=== PATIENT | male | born 1960 | race Caucasian/White ===

== ENCOUNTER 2023-05-12 08:13 | Emergency (ER) | payer OTHER, SELFPAY ==
[2023-05-12] VITALS (7 sets, daily range): BP systolic 99–150; BP diastolic 55–105; BMI 37.6
[2023-05-12 08:58] LABS: COVID-19 Antigen Negative (Negative)
[2023-05-12 10:23] LABS: % Basophils 0.6 % (0-2); % Eosinophils 1.2 % (0-6); % Immature Granulocytes 0.6 % (0-0.5); % Lymphocytes 14.4 % (20.5-51.1); % Monocytes 8.7 % (1.7-9.3); % Neutrophils 74.5 % (42.2-75.2); Absolute Basophils 0.1 10^3/uL (0-0.2); Absolute Eosinophils 0.2 10^3/uL (0-0.7); Absolute Immature Granulocytes 0.1 10^3/uL (0-0.05); Absolute Monocytes 1.2 10^3/uL (0.1-0.6); Absolute Neutrophils 10.2 10^3/uL (1.4-6.5); Hematocrit 42.9 % (39.0-52.0); Hemoglobin 14.6 g/dL (13.0-18.0); Mean Corpuscular Hgb 28.5 pg (27.0-31.0); Mean Corpuscular Volume 83.6 fL (80.0-94.0); Mean Platelet Volume 9.5 fL (7.4-10.4); Nucleated Red Blood Cells % 0 % (-); Platelet Count 185 10^3/uL (130-400); Red Blood Cell Count 5.13 10^6/uL (4.70-6.10); White Blood Cell Count 13.7 10^3/uL (4.8-10.8)
[2023-05-12] MEDS: DUONEB 3 ML INH ×2 (10:24→11:08)
[2023-05-12 10:45] LABS: NT-proBNP 842 pg/ml
[2023-05-12 11:01] LABS: Blood Urea Nitrogen 21 mg/dl (9-20); Calcium 8.6 mg/dl (8.4-10.2); Carbon Dioxide 27 mmol/L (22-30); Chloride 104 mmol/L (98-107); Estimated Creatinine Clearance > 125 ml/min; Glucose 102 mg/dl (70-99); Sodium 138 mmol/L (135-145); eGFR > 60.00
[2023-05-12] MEDS: DECADRON 10 MG IV (11:08)
--- NOTE | 2023-05-12 13:59 | ED.GENMED ---
History of Present Illness
General
Chief Complaint: Cold/Flu/URI Symptoms
Source: patient
Exam Limitations: none
Time Seen by Provider: 05/12/23 08:15
Travel History
Have you had any contact with someone who has COVID-19?: No
Do you have any symptoms of coronavirus? Fever > 100 degrees, chills, cough, shortness of breath, sore throat, loss of taste or smell, muscle aches, or headache?: Yes
Symptoms:: cough
History of Present Illness
History of Present Illness:
This is a 63yo male who presents with cough, sore throat, and sob. Patient has history of stroke. He admits that his caregivers child was recently sick. The patient admits that he has had no noted fevers. He feels a little better on my
evaluation. No abdominal pain. No chest pain
Past History
Past History
ED Past Medical History: CAD, CVA (right parietal occipital and 2016), GERD, HTN, Hypercholesterolemia, [place] and Other (ITP w/ Thrombus)
ED Past Surgical History: Cardiac (CABG, Stents) and Other (Hernia)
Social History
Tobacco: Non-smoker
Alcohol: None
Personal:
Living: with family
Employment: Not employed
Family History
Family History: Early CAD
Phy Exam
Physical Exam
Physical Exam:
CONSTITUTIONAL Patient alert and oriented to person, place and time. Well-appearing. Vital signs reviewed.
HEAD atraumatic, normocephalic.
EYES eyelids normal to inspection, Extraocular muscles intact, Conjunctiva normal, Sclera normal.
NECK normal range of motion, Trachea midline, no jugular venous distention.
RESPIRATORY CHEST No respiratory distress noted, Chest expansion equal, wheezing noted bilaterally.
CARDIOVASCULAR regular rate and rhythm, Heart sounds normal.
BACK normal inspection, no obvious deformities
UPPER EXTREMITY range of motion normal, Motor strength normal, no cyanosis, no edema.
LOWER EXTREMITY range of motion normal, Motor strength normal, no cyanosis, no edema.
NEURO Speech normal, left upper and lower extremity weakness noted from previous stroke
SKIN skin warm, dry, and normal in color.
PSYCHIATRIC patient oriented to person place and time, Normal affect.
Course
Orders/Labs/Results
Orders:
Orders
05/12/23 08:36
COVID-19 Antigen Urgent
Source: Nasal Swab
Influenza A+B Rapid Molecular Stat
BINTA Source: Nasal Swab
Specimen Description:
05/12/23 08:56
Electrocardiogram (*1) Stat
Reason for Study: Other
Other Reason for Exam: chest pain
Cardiac Monitoring- Treatment ONCE
EKG- Treatment ONCE
05/12/23 08:57
CR Chest - 2 Views Urgent
Comment:
Reason For Exam: SOB
05/12/23 09:51
Ipratropium/Albuterol Sulfate [Duoneb] 3 ml INH R NOW STA
05/12/23 10:17
Basic Metabolic Panel Urgent
05/12/23 10:18
Complete Blood Count/With Diff Urgent
NT-proBNP Urgent
05/12/23 10:57
Dexamethasone Sod Phosphate [Decadron] 10 mg IV NOW STA
Ipratropium/Albuterol Sulfate [Duoneb] 3 ml INH R NOW STA
Abnormal Lab Results
05/12/23 05/12/23
10:17 10:18
WBC 13.7 H 10^3/uL
(4.8-10.8)
Abs Immat Gran (auto) 0.1 H 10^3/uL
(0-0.05)
Absolute Neuts (auto) 10.2 H 10^3/uL
(1.4-6.5)
Absolute Monos (auto) 1.2 H 10^3/uL
(0.1-0.6)
Immature Gran % 0.6 H %
(0-0.5)
Lymphocytes % 14.4 L %
(20.5-51.1)
BUN 21 H mg/dl
(9-20)
Glucose 102 H mg/dl
(70-99)
05/12/23 10:18
05/12/23 10:17
Vital Signs
Initial and Last Documented VS:
Initial Vital Signs
Temp Pulse Resp BP Pulse Ox
99.2 F 81 22 150/105 93
05/12/23 08:22 05/12/23 08:22 05/12/23 08:22 05/12/23 08:22 05/12/23 08:22
Last Documented Vital Signs
Temp Pulse Resp BP Pulse Ox
99.2 F 80 22 99/58 90
05/12/23 08:22 05/12/23 13:30 05/12/23 13:30 05/12/23 13:00 05/12/23 13:30
MDM/Problems Addressed
MDM/Problems Addressed:
Reactive airway disease, bronchitis
*Radiology
Radiology exam reviewed: all reviewed NAD by ED Provider
*Pulse Oximetry
Patient hypoxic: no
*EKG
Interpreted by ED Provider?: Yes
Interpretation: abnormal
Rate: normal
Rhythm: sinus and PVC's
Ischemia: non-specific ST changes
*Critical Care Note
Total Time (30-74mins, 75-104mins- exclusive of procedures): Not Applicable
Data Reviewed
Source: patient
Further Testing Considered But Not Given:
Considered admission but patient has remained stable with pulse ox 96%. Feels much improved. Lungs on reassessment are much more clear. Will discharge with albuterol with nebulizer as well as steroids. Also, given his medical history, cover with
antibiotic
ED Attending Note
-
Portions of this chart may have been created with voice recognition software.� Occasional wrong word or��sound alike� substitutions may have occurred due to the inherent limitations of voice recognition software.
Discharge Plan
Departure
Patient Disposition: Home (Routine Discharge)
Date of Disposition: 05/12/23
Time of Disposition: 14:03
Patient with high blood pressure during this ER visit?: No
Discharge Problem:
RAD (reactive airway disease), Acute upper respiratory infection
Instructions: Acute Bronchitis, Adult (DC)
Prescriptions:
New
albuterol sulfate 2.5 mg /3 mL (0.083 %) solution for nebulization
2.5 mg inhalation Q4H PRN (Reason: shortness of breath or wheezing) Qty: 180 0RF
prednisone 10 mg Tablet
See Rx Instructions .ROUTE .COMPLEX Qty: 30 0RF
Rx Instructions:
Take By Mouth:
40 mg daily x3 days, 30 mg daily x3 days,
20 mg daily x3 days, 10 mg daily x3 days.
amoxicillin-pot clavulanate 875-125 mg tablet
1 tab PO BID Qty: 14 0RF
No Action
eltrombopag olamine [Promacta] 50 MG tablet
50 mg PO DAILY
pantoprazole 40 MG tablet,delayed release (DR/EC)
40 mg PO Q12
ropinirole 1 MG tablet
0.5 mg PO HS
trazodone 50 MG tablet
75 mg PO HS
levetiracetam 500 MG tablet
500 mg PO BID
baclofen 10 MG tablet
10 mg PO TID
fluoxetine 20 MG capsule
40 mg PO DAILY
risperidone 1 MG tablet
0.5 mg PO BID
lisinopril 2.5 MG tablet
2.5 mg PO DAILY
acetaminophen 325 MG tablet
650 mg PO Q4HPRN PRN (Reason: mild pain)
atorvastatin 80 MG tablet
80 mg PO DAILY
apixaban [Eliquis] 5 MG tablet
5 mg PO BID Qty: 0 0RF
Referrals:
Marcello Shrestha MD [Family Provider] -
Activity Restrictions/Additional Instructions:
Please see your doctor in the next 3 days for follow-up and reevaluation. Please use albuterol every 4-6 hours as needed for cough, wheezing. Return immediately for difficulty breathing, coughing up blood, worsening symptoms, fevers or any other
concerns.
Interventions
Interventions:
*Risk Screen - Suicide Last Done: 05/12/23 09:01
*General Assessment Last Done: 05/12/23 08:22
*Neglect/Abuse Screening Last Done: 05/12/23 08:22
*ED COVID-19 Vaccine History Last Done: 05/12/23 08:22
ED- Pulmonary Assessment Last Done: 05/12/23 10:26
== END 2023-05-12 15:30 | disposition home or self-care (01) ==
LOC: EMR 08:13
PROVIDERS: EMERGENCY PHYSICIAN Emergency Medicine; FAMILY PHYSICIAN Family Medicine
DX: J06.9 Acute upper respiratory infection, unspecified (principal); J45.909 Unspecified asthma, uncomplicated; Z11.52 Encounter for screening for COVID-19
CPT/HCPCS: 99285; 96374; 94640; 71046; 80048; 83880; 85025; 87502; 87811; 93005

== ENCOUNTER 2023-06-17 15:24 | Outpatient (RCR) | payer OTHER, SELFPAY | END 2023-06-17 23:59 | disposition home or self-care (01) | LOC: ROT 15:24 | PROVIDERS: ATTENDING PHYSICIAN Psychiatry & Neurology Neurology; FAMILY PHYSICIAN Family Medicine | DX: I63.311 Cerebral infarction due to thrombosis of right middle cerebral artery (principal); Z73.6 Limitation of activities due to disability | CPT/HCPCS: 97167; 97535 ==

== ENCOUNTER 2024-02-07 11:50 | Emergency (ER) | payer OTHER, SELFPAY ==
[2024-02-07 11:53] VITALS: BP 119/80
--- NOTE | 2024-02-07 12:12 | ED.GENMED ---
History of Present Illness
General
Chief Complaint: Back Pain
Source: patient
Exam Limitations: none
Time Seen by Provider: 02/07/24 12:10
Nursing documentation reviewed up to this point in time: agreed with
History of Present Illness
History of Present Illness:
63-year-old male with history of CVA w left hemiparesis, vertigo, HTN, HLD, DC, GERD, thrombocytopenia, ITP with splenic blood clot 2016, anxiety/depression, CABG x 2 presents 6 days after a fall for persistent pain across lower back and left hip.
He went down his outside steps backwards as usual, at the bottom of steps, caregiver wasn't holding him 'properly' and he fell on the asphalt onto his left side. He was helped up and has been able to ambulate as usual with his cane. He proceeded to
his meeting. He has been getting more sore across lower back and left hip areas since the fall.
Caregiver with him and pt admit his ability to ambulate steadily has been declining, his last P/T was over a year ago and he can not afford it. They are applying for Medicaid and hope to restart the P/T
Past History
Past History
ED Past Medical History: CAD, CVA (right parietal occipital and 2016), GERD, HTN, Hypercholesterolemia, [place] and Other (ITP w/ Thrombus)
ED Past Surgical History: Cardiac (CABG, Stents) and Other (Hernia)
Social History
Tobacco: Non-smoker
Alcohol: None
Personal:
Living: with family
Employment: Not employed
Family History
Family History: Early CAD
Review of Systems
Review of Systems
Allergies reviewed?: Yes
All Other Systems: ROS reviewed and negative except as documented in HPI and ROS
Constitutional: Denies fever or fatigue
Respiratory: Denies trouble breathing
Cardiac: Denies chest pain or syncope
ABD/GI: Denies abdominal pain, nausea, vomiting, diarrhea or anorexia
: Denies dysuria, frequency, difficulty voiding or urgency
Musculoskeletal: Reports back pain and other (pain left hip and lower back. ); Denies edema or neck pain
Skin: Reports no symptoms
Neurological: Reports other (L hemiplegia unchanged); Denies dizzy
Phy Exam
Physical Exam
Physical Exam:
GENERAL: No acute distress. A&Ox3.
CONSTITUTIONAL: Afebrile.
EYES: PERRL, conjunctivae normal
Neck: Supple
ENMT: moist mucus membranes, Pharynx nl
RESPIRATORY: Regular respirations, nonlabored, lungs clear.
CARDIOVASCULAR: Regular rate and rhythm, no murmurs, no rubs.
GI: Soft, nontender, normal BS
MUSCULOSKELETAL: Tender left para lumbar area, left lateral hip. Moves with ease. Well perfused.
SKIN: Warm, dry, pink
PSYCH: Normal mood and affect. Well kept, interactive and appropriate
NEUROLOGIC: Awake, alert and oriented. Left hemiplegia.
Course
Orders/Labs/Results
Orders:
Orders
02/07/24 12:27
Lumbar Spine, 2 or 3 View [CR Lumbar Spine 2 Or 3 Views] Urgent
Comment:
Reason For Exam: pain after fall
02/07/24 12:28
Hip, Left 2-3 Views [CR Hip - LT w/wo Pel 2-3 Vw*] Urgent
Comment:
Reason For Exam: pain after fall
Include a pelvis x-ray?: No
Vital Signs
Initial and Last Documented VS:
Initial Vital Signs
Temp Pulse Resp Pulse Ox
97.6 F 70 18 94
02/07/24 11:51 02/07/24 11:51 02/07/24 11:51 02/07/24 11:51
Last Documented Vital Signs
Temp Pulse Resp BP Pulse Ox
97.6 F 64 16 119/80 94
02/07/24 11:51 02/07/24 13:59 02/07/24 13:59 02/07/24 11:53 02/07/24 13:59
MDM/Problems Addressed
MDM/Problems Addressed:
63-year-old male with history of CVA w left hemiparesis, vertigo, HTN, HLD, DC, GERD, thrombocytopenia, ITP with splenic blood clot 2016, anxiety/depression, CABG x 2 presents 6 days after a fall for persistent pain across lower back and left hip.
He went down his outside steps backwards as usual, at the bottom of steps, caregiver wasn't holding him 'properly' and he fell on the asphalt onto his left side. He was helped up and has been able to ambulate as usual with his cane. He proceeded to
his meeting. He has been getting more sore across lower back and left hip areas since the fall.
Caregiver with him and pt admit his ability to ambulate steadily has been declining, his last P/T was over a year ago and he can not afford it. They are applying for Medicaid and hope to restart the P/T
LS spine and L hip xrays both show DJD, nothing acute.
Pt reassured.
DC'd via wheelchair to care of caregiver
*Critical Care Note
Total Time (30-74mins, 75-104mins- exclusive of procedures): Not Applicable
ED Attending Note
-
Portions of this chart may have been created with voice recognition software.� Occasional wrong word or��sound alike� substitutions may have occurred due to the inherent limitations of voice recognition software.
Discharge Plan
Departure
Patient Disposition: Home (Routine Discharge)
Date of Disposition: 02/07/24
Time of Disposition: 13:43
Patient with high blood pressure during this ER visit?: No
Condition: Fair
Discharge Problem:
Fall from slip, trip, or stumble, Low back strain, Contusion of left hip
Instructions: Low Back Pain (DC), Contusion
Prescriptions:
No Action
eltrombopag olamine [Promacta] 50 MG tablet
50 mg PO DAILY
pantoprazole 40 MG tablet,delayed release (DR/EC)
40 mg PO Q12
ropinirole 1 MG tablet
0.5 mg PO HS
trazodone 50 MG tablet
75 mg PO HS
levetiracetam 500 MG tablet
500 mg PO BID
baclofen 10 MG tablet
10 mg PO TID
fluoxetine 20 MG capsule
40 mg PO DAILY
risperidone 1 MG tablet
0.5 mg PO BID
lisinopril 2.5 MG tablet
2.5 mg PO DAILY
acetaminophen 325 MG tablet
650 mg PO Q4HPRN PRN (Reason: mild pain)
albuterol sulfate 2.5 mg /3 mL (0.083 %) solution for nebulization
2.5 mg inhalation Q4H PRN (Reason: shortness of breath or wheezing) Qty: 180 0RF
prednisone 10 mg Tablet
See Rx Instructions .ROUTE .COMPLEX Qty: 30 0RF
Rx Instructions:
Take By Mouth:
40 mg daily x3 days, 30 mg daily x3 days,
20 mg daily x3 days, 10 mg daily x3 days.
amoxicillin-pot clavulanate 875-125 mg tablet
1 tab PO BID Qty: 14 0RF
atorvastatin 80 MG tablet
80 mg PO DAILY
apixaban [Eliquis] 5 MG tablet
5 mg PO BID Qty: 0 0RF
Referrals:
Lorraine Flowers, DO [Family Provider] - As needed
Activity Restrictions/Additional Instructions:
As we discussed your lower back and left hip xrays show nothing broken.
You do have arthritis in these areas so injury/fall can aggravate it and cause your pain.
You may use Ibuprofen 600 mg twice a day for the next week as needed, as your platelet counts are normal.
Do not use the Ibuprofen for more than one week.
Interventions
Interventions:
*Risk Screen - Suicide Last Done: 02/07/24 11:53
*Neglect/Abuse Screening Last Done: 02/07/24 11:53
ED- Fall Risk Assessment Last Done: 02/07/24 13:06
*ED COVID-19 Vaccine History Last Done: 02/07/24 12:30
*Nursing Disposition Last Done: 02/07/24 13:59
ED-Musculoskeletal Assessment Last Done: 02/07/24 12:15
Discharge Date and Time
Discharge Date/Time: 02/07/24 14:02
Print Language: NEPALI
== END 2024-02-07 14:02 | disposition home or self-care (01) ==
LOC: EMR 11:50
PROVIDERS: EMERGENCY PHYSICIAN Student in an Organized Health Care Education/Training Program; FAMILY PHYSICIAN Family Medicine
DX: S39.012A Strain of muscle, fascia and tendon of lower back, initial encounter (principal); S70.02XA Contusion of left hip, initial encounter; W01.0XXA Fall on same level from slipping, tripping and stumbling without subsequent striking against object, initial encounter; I10 Essential (primary) hypertension; E78.00 Pure hypercholesterolemia, unspecified; I25.10 Atherosclerotic heart disease of native coronary artery without angina pectoris; I25.2 Old myocardial infarction; I69.354 Hemiplegia and hemiparesis following cerebral infarction affecting left non-dominant side; K21.9 Gastro-esophageal reflux disease without esophagitis; Z95.1 Presence of aortocoronary bypass graft; Z95.5 Presence of coronary angioplasty implant and graft
CPT/HCPCS: 99284; 72100; 73502

== ENCOUNTER 2024-04-02 09:38 | Inpatient (IN) | payer OTHER, SELFPAY ==
[2024-03-30 13:13] VITALS: BP 140/102
--- NOTE | 2024-03-30 15:20 | ED.GENMED ---
History of Present Illness
General
Chief Complaint: Back Pain
Time Seen by Provider: 03/30/24 15:04
History of Present Illness
History of Present Illness:
64-year-old male with history of prior stroke with left-sided hemiparesis and ITP presents to the emergency department for evaluation of nontraumatic right-sided low back pain for the past several days. He typically uses a cane for ambulation, over
the past 24 hours has been unable to walk secondary to pain. Has been taking Tylenol without significant improvement. On Eliquis thus cannot take NSAIDs. Denies any lower urinary tract voiding symptoms, hematuria, or colicky pain.
Past History
Past History
ED Past Medical History: CAD, CVA (right parietal occipital and 2016), GERD, HTN, Hypercholesterolemia, [place] and Other (ITP w/ Thrombus)
ED Past Surgical History: Cardiac (CABG, Stents) and Other (Hernia)
Social History
Tobacco: Non-smoker
Alcohol: None
Personal:
Living: with family
Employment: Not employed
Family History
Family History: Early CAD
Review of Systems
Review of Systems
Allergies reviewed?: Yes
All Other Systems: ROS reviewed and negative except as documented in HPI and ROS
Phy Exam
Physical Exam
Physical Exam:
GEN: Well appearing, NAD, WDWN
HEENT: Oral mucosa moist, no scleral icterus
Cardiac: Regular rate
Lung: No respiratory distress, no tachypnea
MSK: No gross deformity or injuries. No obvious lumbar spine deformities. No midline lumbar spine tenderness. L-spine range of motion limited secondary to pain.
Skin: Good color, no pallor or jaundice, no rashes
Neuro: AO x3. Left-sided hemiparesis baseline, right lower extremity strength is 5 out of 5 in all garduno with 2+ patellar reflex
Psych: Calm, cooperative
Course
Orders/Labs/Results
Orders:
Orders
03/30/24 Dinner
Regular
At Your Request: Non-Participating
03/30/24 15:20
HYDROmorphone [Dilaudid] 0.5 mg IV NOW STA
CR Lumbar Spine Comp Min 4 Vw* Urgent
Comment:
Reason For Exam: Low back pain
03/30/24 15:32
Pt Eval And Treat Urgent
Treatment: R low back pain, hx of L hemiparesis
Activity Level: As Tolerated
03/30/24 16:12
Complete Blood Count/No Diff Urgent
Comprehensive Metabolic Panel Urgent
03/30/24 16:16
UA Reflex to Culture [Urinalysis Reflex To Culture] Urgent
Date Specimen was Collected: 03/30/24
Time Specimen was Collected: 16:12
03/30/24 17:14
Dexamethasone Sod Phosphate [Decadron] 10 mg IV NOW STA
HYDROmorphone [Dilaudid] 0.5 mg IV NOW STA
03/30/24 17:34
Admit/Transfer Patient As Directed
Co-Sign Provider:
Level of Care: Observation services
Assign to:: Medical/Surgical
Physician / Group: julee
Diagnosis: back pain
Code Status As Directed
Resuscitation Status: Do not resuscitate
Reached after discussion with pt or family/Healthcare POA: Yes
DNR Bracelet Application ONCE
PRN Pain Medication Management As Directed
May give lesser potent ordered pain med per pt: Yes
preference::
Protocol:: Medication orders for pain may be administered in a
manner that supports deferring to patient preference
when the pt is:
- Requesting an ordered lesser potent pain medication.
Least to most potent pain medications are defined
as: acetaminophen < NSAID < tramadol < opioids
(morphine, oxycodone, hydromorphone).
- Requesting a lesser dose of the same medication IF
ORDERED.
- Requesting a less intrusive route of administration
if both routes are prescribed by the provider (PO <
IV).
03/30/24 17:47
Acetaminophen [Tylenol] 650 mg PO Q4HPRN PRN
HYDROmorphone [Dilaudid] 0.5 mg IV Q4HPRN PRN
03/30/24 17:47
VTE Contraindication Routine
VTE Mechanical Device Contraindication: Medical Contraindication
Pharmocologic Contraindication: Medical Contraindication
Activity As Directed
Activity Level: As Tolerated
Vital Signs As Directed
Frequency: Per unit guidelines
Ot Eval And Treat Routine
03/31/24 06:00
Complete Blood Count/With Diff IN AM
Comprehensive Metabolic Panel IN AM
03/31/24 08:00
Lidocaine [Lidocaine 4% Patch] 1 patch TOPICAL DAILY
Apply Lidocaine patch(s) to:: right lower back
Abnormal Lab Results
03/30/24 03/30/24
16:12 16:16
MCHC 32.9 L g/dL
(33.0-37.0)
RDW 14.6 H %
(11.5-14.5)
Carbon Dioxide 31 H mmol/L
(22-30)
BUN 21 H mg/dl
(9-20)
Urine Ketones 1+ A
(Negative)
Urine Urobilinogen 4+ A
(Neg - 1+)
03/30/24 16:12
03/30/24 16:12
Vital Signs
Initial and Last Documented VS:
Initial Vital Signs
Temp Pulse Resp BP Pulse Ox
98.1 F 57 18 140/102 92
03/30/24 13:13 03/30/24 13:13 03/30/24 13:13 03/30/24 13:13 03/30/24 13:13
Last Documented Vital Signs
Temp Pulse Resp BP Pulse Ox
97.3 F 60 16 128/74 95
03/30/24 23:00 03/30/24 23:00 03/30/24 23:00 03/30/24 23:00 03/30/24 23:00
MDM/Problems Addressed
MDM/Problems Addressed:
Patient's severe pain is quite limiting to his functional status which is already impaired due to prior stroke. He is not suitable for discharge to home at this time. Seen by physical therapy and inpatient rehab was recommended. Will admit to the
hospitalist service for further management
*Critical Care Note
Total Time (30-74mins, 75-104mins- exclusive of procedures): Not Applicable
ED Attending Note
-
Portions of this chart may have been created with voice recognition software.� Occasional wrong word or��sound alike� substitutions may have occurred due to the inherent limitations of voice recognition software.
Discharge Plan
Departure
Patient Disposition: Admit
Date of Disposition: 03/30/24
Time of Disposition: 17:14
Admit to: Med/Surg
Presentation/result/management discussed w/ accepting MD/DO: Hospitalist
Discharge Problem:
Intractable low back pain
Interventions
Interventions:
*Risk Screen - Suicide Last Done: 03/30/24 13:13
*General Assessment Last Done: 03/30/24 13:13
*Neglect/Abuse Screening Last Done: 03/30/24 13:13
*ED COVID-19 Vaccine History Last Done: 03/30/24 18:10
[2024-03-30] MEDS: DILAUDID 0.5 MG IV ×3 (16:04→23:47)
[2024-03-30 16:26] LABS: Urine Albumin Trace (Neg - Trace); Urine Bilirubin Negative (Negative); Urine Character Clear (Clear); Urine Color Yellow; Urine Glucose Negative (Negative); Urine Ketone 1+ (Negative); Urine Leukocyte Negative (Negative); Urine Nitrite Negative (Negative); Urine Occult Blood Negative (Negative); Urine Urobilinogen 4+ (Neg - 1+)
[2024-03-30 16:27] LABS: Hematocrit 43.4 % (39.0-52.0); Hemoglobin 14.3 g/dL (13.0-18.0); Mean Corp Hgb Conc. 32.9 g/dL (33.0-37.0); Mean Corpuscular Hgb 29.3 pg (27.0-31.0); Mean Corpuscular Volume 88.9 fL (80.0-94.0); Mean Platelet Volume 9.7 fL (7.4-10.4); Platelet Count 193 10^3/uL (130-400); Red Blood Cell Count 4.88 10^6/uL (4.70-6.10); Red Cell Dist. Width 14.6 % (11.5-14.5); White Blood Cell Count 9.7 10^3/uL (4.8-10.8)
[2024-03-30 17:17] LABS: ALT (SGPT) 27 U/L (0-50); AST (SGOT) 35 U/L (17-59); Albumin 3.6 g/dl (3.5-5.0); Alkaline Phosphatase 62 U/L (38-126); Blood Urea Nitrogen 21 mg/dl (9-20); Calcium 9.1 mg/dl (8.4-10.2); Carbon Dioxide 31 mmol/L (22-30); Chloride 102 mmol/L (98-107); Glucose 94 mg/dl (70-99); Potassium 4.1 mmol/L (3.5-5.1); Sodium 139 mmol/L (135-145); Total Bilirubin 0.6 mg/dl (0.2-1.3); Total Protein 6.3 g/dl (6.3-8.2); eGFR > 60.00
[2024-03-30] MEDS: DECADRON 10 MG IV (17:27)
--- NOTE | 2024-03-30 17:37 | HPS.HSE ---
Family Physician
-
Family Physician: Alan Reynoso
Chief Complaint
-
back pain
History of Present Illness
64-year-old male past medical history of prior CVA with left-sided hemiparesis, ITP, CAD status post CABG, atrial tachycardia, HFpEF, hypertension, GERD, hypercholesteremia, presenting with right-sided lower back pain for the past several weeks. He
has chronic lower back pain but he states that he fell a few weeks ago and since then he has been having severe pain. Pain is located in the right lower back and does not radiate to the butt or lower extremity. Sometimes the pain goes across his
back. The pain is only severe when he tries to ambulate. When he is lying down there is minimal pain.
He typically uses a cane for ambulation but over the past day he has been unable to walk secondary to pain. He has been taking Tylenol and ibuprofen without improvement. He denies any difficulty voiding urine. Denies any numbness or tingling.
Denies any fevers or weight loss.
He does not smoke or drink alcohol.
Medical History
Past Medical History
Past Medical History: Reports Other (prior CVA with left-sided hemiparesis, ITP, CAD status post CABG, atrial tachycardia, HFpEF, hypertension, GERD, hypercholesteremia)
Past Surgical History: Reports None
Social History
Tobacco: Non-smoker
Alcohol: None
Drug: None
Family History
Family History: Not pertinent
Allergies / Home Medications
Allergies reflects when Allergies were last updated in Help/Systems.
Home Medications with original date entered in Help/Systems
Allergy/Medication List:
Allergies
Allergy/AdvReac Type Severity Reaction Status Date / Time
No Known Allergies Allergy Verified 03/30/24 13:13
Home Medications
eltrombopag olamine 50 mg tablet (Promacta) 50 mg PO DAILY 06/01/14
pantoprazole 40 mg tablet,delayed release 40 mg PO Q12 06/17/15
atorvastatin 80 mg tablet 80 mg PO DAILY 09/07/15
apixaban 5 mg tablet (Eliquis) 5 mg PO BID ##0 09/26/15
acetaminophen 325 mg tablet 650 mg PO Q4HPRN PRN mild pain 07/28/18
baclofen 10 mg tablet 10 mg PO TID 07/28/18
fluoxetine 20 mg capsule 40 mg PO DAILY 07/28/18
levetiracetam 500 mg tablet 500 mg PO BID 07/28/18
lisinopril 2.5 mg tablet 2.5 mg PO DAILY 07/28/18
risperidone 1 mg tablet 0.5 mg PO BID 07/28/18
ropinirole 1 mg tablet 0.5 mg PO HS 07/28/18
trazodone 50 mg tablet 75 mg PO HS 07/28/18
albuterol sulfate 2.5 mg/3 mL (0.083 %) solution for nebulization 2.5 mg (3 mL) inhalation Q4H PRN shortness of breath or wheezing #180 mL 05/12/23
amoxicillin 875 mg-potassium clavulanate 125 mg tablet 1 tab PO BID #14 tabs 05/12/23
prednisone 10 mg tablet See Rx Instructions .Route .COMPLEX #30 tabs 05/12/23
Review of Systems
-
History Source: Patient
A 12 point ROS was completed and negative except as noted: Yes
Physical Exam
Vital Signs
Vital Signs
Temp Pulse Resp BP Pulse Ox
98.1 F 57 18 140/102 92
03/30/24 13:13 03/30/24 13:13 03/30/24 13:13 03/30/24 13:13 03/30/24 13:13
Physical Exam
General: Well Developed, Well Nourished and No Apparent Distress
HEENT: NormoCephalic, Moist mucous membranes and Atraumatic
Respiratory: Clear
Cardiac: S1/S2 and Regular Rhythm; No Murmur or Rub
GI: Soft, Non Tender, Non Distended and Normal Bowel Sounds; No Organomegaly
Rectal: Deferred by Provider
Musculoskeletal: No Clubbing, No Cyanosis, No Edema and Other (right paraspinal tenderness )
Skin: No Rash
Neuro: Nonfocal/grossly intact
Laboratory Results
-
03/30/24 16:12
03/30/24 16:12
Laboratory Results
Total Bilirubin 0.6 mg/dl (0.2-1.3) 03/30/24 16:12
AST 35 U/L (17-59) 03/30/24 16:12
ALT 27 U/L (0-50) 03/30/24 16:12
Alkaline Phosphatase 62 U/L (38-126) 03/30/24 16:12
Data Reviewed
-
Lab Data: Labs Reviewed by me
Old Records: Reviewed
Impression/Plan
-
IMPRESSION:
PLAN:
# Acute on chronic lower back pain after recent fall
-Minimal pain when lying down flat without movement, some tenderness in the right lower paraspinal area
-Strength is good, and no indications for MRI at this time
-Lumbar x-ray pending to rule out compression fracture
-Dexamethasone given in ER
-Lidocaine patch, Tylenol, Dilaudid, baclofen
-PT/OT
History of prior CVA with left-sided hemiparesis
ITP/thrombophilia
-Continue Promacta
-Continue Eliquis
CAD status post CABG
-Continue statin
PAD
Ischemic cardiomyopathy
Essential hypertension
-Continue lisinopril
GERD
-Continue Protonix
Hypercholesterolemia
-Continue statin
Restless leg syndrome
-Continue ropinirole
Anxiety/depression
-Continue Risperdal, fluoxetine, trazodone
DNR/DNI
DVT prophylaxis�Eliquis
Regular diet
[2024-03-30 18:11] VITALS: BP 93/60
[2024-03-30 21:09] VITALS: BP 127/75; BMI 34.8
--- NOTE | 2024-03-30 22:56 | PTCARENOTE ---
pt admitted to rm 317-1 and was pulled over from stretcher to bed. Pt aaox3, VSS, and states that pain level is a 0/10. Pt c/o difficulty urinating while in ED, no c/o of burning or pain. Bladder scanned for 70mls, urinal given to pt. Pt oriented to
room, call villa within reach, and plan of care ongoing.
[2024-03-30 23:00] VITALS: BP 128/74
[2024-03-31] MEDS: DESYREL 150 MG PO ×2 (00:16→21:04)
[2024-03-31] MEDS: DEPAKOTE (12 HR RELEASE) 500 MG PO ×3 (00:16→21:05)
[2024-03-31] MEDS: PROTONIX 40 MG PO ×3 (00:16→21:04)
[2024-03-31] MEDS: LIPITOR 80 MG PO ×2 (00:16→08:37)
[2024-03-31] MEDS: PRADAXA 150 MG PO ×3 (00:16→21:04)
[2024-03-31] MEDS: LIORESAL 20 MG PO (00:17)
[2024-03-31] MEDS: TYLENOL 650 MG PO (02:35)
[2024-03-31] MEDS: DILAUDID 0.5 MG IV (06:08)
[2024-03-31 07:16] LABS: % Basophils 0.1 % (0-2); % Immature Granulocytes 0.8 % (0-0.5); % Monocytes 2.4 % (1.7-9.3); % Neutrophils 75.7 % (42.2-75.2); Absolute Immature Granulocytes 0.1 10^3/uL (0-0.05); Absolute Lymphocytes 1.9 10^3/uL (1.2-3.4); Absolute Monocytes 0.2 10^3/uL (0.1-0.6); Absolute Neutrophils 6.9 10^3/uL (1.4-6.5); Hematocrit 42.8 % (39.0-52.0); Hemoglobin 14.4 g/dL (13.0-18.0); Mean Corp Hgb Conc. 33.6 g/dL (33.0-37.0); Mean Corpuscular Hgb 29.2 pg (27.0-31.0); Mean Corpuscular Volume 86.8 fL (80.0-94.0); Mean Platelet Volume 9.7 fL (7.4-10.4); Nucleated Red Blood Cells % 0 % (-); Platelet Count 206 10^3/uL (130-400); Red Blood Cell Count 4.93 10^6/uL (4.70-6.10); Red Cell Dist. Width 14.5 % (11.5-14.5); White Blood Cell Count 9.1 10^3/uL (4.8-10.8)
[2024-03-31 07:28] LABS: C-Reactive Protein < 5.00 mg/L (0.0-10.00)
[2024-03-31 07:30] VITALS: BP 118/62
[2024-03-31 07:45] LABS: ALT (SGPT) 27 U/L (0-50); AST (SGOT) 32 U/L (17-59); Albumin 3.7 g/dl (3.5-5.0); Alkaline Phosphatase 57 U/L (38-126); Blood Urea Nitrogen 26 mg/dl (9-20); Calcium 9.1 mg/dl (8.4-10.2); Carbon Dioxide 29 mmol/L (22-30); Chloride 102 mmol/L (98-107); Estimated Creatinine Clearance 97 ml/min; Glucose 138 mg/dl (70-99); Potassium 4.9 mmol/L (3.5-5.1); Sodium 139 mmol/L (135-145); Total Bilirubin 0.8 mg/dl (0.2-1.3); Total Protein 6.4 g/dl (6.3-8.2); eGFR > 60.00
[2024-03-31] MEDS: PROZAC 40 MG PO (08:36)
[2024-03-31] MEDS: TYLENOL 1000 MG PO ×3 (08:37→21:04)
[2024-03-31] MEDS: LIORESAL 10 MG PO ×3 (08:37→21:05)
[2024-03-31] MEDS: IMDUR (EXTENDED RELEASE) 60 MG PO (08:37)
[2024-03-31] MEDS: LIDOCAINE 4% PATCH 1 PATCH TOPICAL (08:38)
--- NOTE | 2024-03-31 09:37 | W.PN.HOSP.TC ---
Today's Communication/Plan
-
Lumbar MRI
c/w pain control
PT/OT, likely need SNF
Assessment / Plan
Assessment / Plan
Physical Exam
General: Well Developed, Well Nourished and No Apparent Distress
HEENT: NormoCephalic, Moist mucous membranes and Atraumatic
Respiratory: Clear
Cardiac: S1/S2 and Regular Rhythm; No Murmur or Rub
GI: Soft, Non Tender, Non Distended and Normal Bowel Sounds; No Organomegaly
Rectal: no bleeding
Musculoskeletal: No Clubbing, No Cyanosis, No Edema
Skin: No Rash
Neuro: AAOX3, left sided hemiplegia, he followed commands
Psych: calm, pleasant
# Acute on chronic lower back pain after recent fall
Pain is mostly upon moving. He had left hemiplegia so he leans on right hip, probably causing OS
Check CRP
Order MRI
Change to Tylenol 1000 mg TID
Will cut back on Baclofen ( he gets 10 mg TID but recently increased to 20 mg TID- high dose with side effects)
-Lumbar x-ray is done
-Dexamethasone given in ER, will avoid steroid for now
-Lidocaine patch, PRN Dilaudid
-PT/OT
# History of prior CVA with left-sided hemiplegia
#ITP/thrombophilia
-Continue Promacta
-Continue Eliquis
#CAD status post CABG
He denies chest pain
-Continue statin
PAD
Ischemic cardiomyopathy
Essential hypertension
-Continue lisinopril
GERD
-Continue Protonix
Hypercholesterolemia
-Continue statin
Restless leg syndrome
-Continue ropinirole
Anxiety/depression
-Continue Risperdal, fluoxetine, trazodone
DNR/DNI
DVT prophylaxis�Eliquis
Regular diet
Total time spent to see the patient, examine the patient, review data and lab results, discuss treatment plan with patient, nursing staff around 55 minutes
Anticipated Discharge: 24 - 48 hours
Subjective/Interval History
-
Date of Service: March 31, 2024
He reports right lower sided back pain on moving
No chest pain
No sob
Objective Data
-
Labs:
Laboratory Results
03/31/24
06:54
WBC 9.1
Hgb 14.4
Hct 42.8
Plt Count 206
Sodium 139
Potassium 4.9
Chloride 102
Carbon Dioxide 29
BUN 26 H
Creatinine 0.9
Glucose 138 H
Calcium 9.1
Total Bilirubin 0.8
AST 32
ALT 27
Alkaline Phosphatase 57
Vital Signs:
Vital Signs
Temp Pulse Resp BP Pulse Ox
98.6 F 55 18 118/62 93
03/31/24 07:30 03/31/24 07:30 03/31/24 07:30 03/31/24 07:30 03/31/24 07:30
I&O
03/30/24 03/31/24 04/01/24
06:59 06:59 06:59
Intake Total 480 / 480
Output Total 250 / 250
Balance 230 / 230
[2024-03-31 12:55] VITALS: BP 143/82; PULSE 73; O2SAT 95
[2024-03-31 12:58] VITALS: BP 143/82; PULSE 73; O2SAT 95
--- NOTE | 2024-03-31 13:55 | PTCARENOTE ---
patient reports right lower back pain with movement. no pain at rest, tolerating diet, sitting oob in chair after therapy, vss, will continue to monitor.
[2024-03-31 15:35] VITALS: BP 117/72
[2024-03-31 23:22] VITALS: BP 108/68
[2024-04-01] MEDS: IMODIUM 2 MG PO ×2 (05:29→12:48)
[2024-04-01 06:00] VITALS: BMI 34.7
[2024-04-01 07:00] VITALS: BP 139/85
[2024-04-01] MEDS: PRADAXA 150 MG PO ×2 (09:17→21:26)
[2024-04-01] MEDS: PROZAC 40 MG PO (09:17)
[2024-04-01] MEDS: DEPAKOTE (12 HR RELEASE) 500 MG PO ×2 (09:17→21:27)
[2024-04-01] MEDS: TYLENOL 1000 MG PO ×3 (09:18→21:27)
[2024-04-01] MEDS: LIPITOR 80 MG PO (09:18)
[2024-04-01] MEDS: PROTONIX 40 MG PO ×2 (09:18→21:27)
[2024-04-01] MEDS: LIORESAL 10 MG PO ×3 (09:18→21:27)
[2024-04-01] MEDS: IMDUR (EXTENDED RELEASE) 60 MG PO (09:18)
[2024-04-01] MEDS: LIDOCAINE 4% PATCH 1 PATCH TOPICAL (09:19)
--- NOTE | 2024-04-01 10:18 | W.PN.HOSP.TC ---
Today's Communication/Plan
-
MRI Lumbar
c/w Tylenol
Assessment / Plan
Assessment / Plan
Physical Exam
General: Well Developed, Well Nourished and No Apparent Distress
HEENT: NormoCephalic, Moist mucous membranes and Atraumatic
Respiratory: Clear
Cardiac: S1/S2 and Regular Rhythm; No Murmur or Rub
GI: Soft, Non Tender, Non Distended and Normal Bowel Sounds; No Organomegaly
Rectal: no bleeding
Musculoskeletal: No Clubbing, No Cyanosis, No Edema
Skin: No Rash
Neuro: AAOX3, left sided hemiplegia, he followed commands
Psych: calm, pleasant
# Acute on chronic lower back pain after recent fall
Pain is mostly upon moving. He had left hemiplegia so he leans on right hip, probably causing OS
CRP not elevated.
Order MRI
Changed to Tylenol 1000 mg TID
Cut back on Baclofen ( he gets 10 mg TID but recently increased to 20 mg TID- high dose with side effects)
-Lumbar x-ray is done
-Dexamethasone given in ER, will avoid steroid for now
-Lidocaine patch, PRN Dilaudid
-PT/OT
# History of prior CVA with left-sided hemiplegia
c/w Pradaxa, statin.
#ITP/thrombophilia
-Continue Promacta
-Continue Pradaxa
#CAD status post CABG/ PAD/ hx of ischemic CMP
He denies chest pain
-Continue statin, Imdur.
# Essential hypertension
c/w Imdur.
#GERD
-Continue Protonix
#Hypercholesterolemia
-Continue statin
#Restless leg syndrome
Not on specific medicine for it, Baclofen noted.
#Anxiety/depression
-Continue Depakote, fluoxetine, trazodone
DNR/DNI
DVT prophylaxis�Pradaxa.
Regular diet
Total time spent to see the patient, examine the patient, review data and lab results, discuss treatment plan with patient, nursing staff around 55 minutes
Anticipated Discharge: 24 - 48 hours
Subjective/Interval History
-
Date of Service: April 01, 2024
No worsening back pain
Objective Data
-
Vital Signs:
Vital Signs
Temp Pulse Resp BP Pulse Ox
98.0 F 56 20 139/85 93
04/01/24 07:00 04/01/24 07:00 04/01/24 07:00 04/01/24 07:00 04/01/24 09:47
I&O
03/31/24 04/01/24 04/02/24
06:59 06:59 06:59
Intake Total 480 / 480 1500 / 1500
Output Total 250 / 250 900 / 900
Balance 230 / 230 600 / 600
[2024-04-01] MEDS: DILAUDID 0.5 MG IV (12:51)
[2024-04-01 15:00] VITALS: BP 124/57
[2024-04-01] MEDS: DESYREL 150 MG PO (21:26)
[2024-04-01 23:00] VITALS: BP 107/65
[2024-04-02] MEDS: ULTRAM 50 MG PO ×2 (01:51→15:00)
[2024-04-02 06:00] VITALS: BMI 35.6
[2024-04-02 07:10] VITALS: BP 149/89
[2024-04-02 07:23] LABS: Hematocrit 42.8 % (39.0-52.0); Mean Corp Hgb Conc. 32.7 g/dL (33.0-37.0); Mean Corpuscular Hgb 28.9 pg (27.0-31.0); Mean Corpuscular Volume 88.4 fL (80.0-94.0); Mean Platelet Volume 10.3 fL (7.4-10.4); Platelet Count 193 10^3/uL (130-400); Red Blood Cell Count 4.84 10^6/uL (4.70-6.10); White Blood Cell Count 10.5 10^3/uL (4.8-10.8)
[2024-04-02 07:56] LABS: Blood Urea Nitrogen 25 mg/dl (9-20); Calcium 8.7 mg/dl (8.4-10.2); Carbon Dioxide 32 mmol/L (22-30); Chloride 100 mmol/L (98-107); Estimated Creatinine Clearance 98 ml/min; Glucose 95 mg/dl (70-99); Sodium 139 mmol/L (135-145); eGFR > 60.00
[2024-04-02] MEDS: DEPAKOTE (12 HR RELEASE) 500 MG PO ×2 (09:16→21:25)
[2024-04-02] MEDS: IMDUR (EXTENDED RELEASE) 60 MG PO (09:16)
[2024-04-02] MEDS: PROZAC 40 MG PO (09:16)
[2024-04-02] MEDS: PRADAXA 150 MG PO ×2 (09:16→21:25)
[2024-04-02] MEDS: PROTONIX 40 MG PO ×2 (09:16→21:25)
[2024-04-02] MEDS: LIPITOR 80 MG PO (09:16)
[2024-04-02] MEDS: LIORESAL 10 MG PO ×3 (09:17→21:24)
[2024-04-02] MEDS: LIDOCAINE 4% PATCH 1 PATCH TOPICAL (09:17)
[2024-04-02] MEDS: TYLENOL 1000 MG PO ×3 (09:17→21:24)
--- NOTE | 2024-04-02 09:30 | W.PN.HOSP.TC ---
Today's Communication/Plan
-
Discharge
Assessment / Plan
Assessment / Plan
Physical Exam
General: Well Developed, Well Nourished and No Apparent Distress
HEENT: NormoCephalic, Moist mucous membranes and Atraumatic
Respiratory: Clear
Cardiac: S1/S2 and Regular Rhythm; No Murmur or Rub
GI: Soft, Non Tender, Non Distended and Normal Bowel Sounds; No Organomegaly
Rectal: no bleeding
Musculoskeletal: No Clubbing, No Cyanosis, No Edema
Skin: No Rash
Neuro: AAOX3, left sided hemiplegia, he followed commands
Psych: calm, pleasant
# Acute on chronic lower back pain after recent fall
Pain is mostly upon moving. He had left hemiplegia so he leans on right hip, probably causing OS
CRP not elevated.
Order MRI Lumbar showed advanced DJD. No evidence for acute to subacute compression fracture
Changed to Tylenol 1000 mg TID
Cut back on Baclofen ( he gets 10 mg TID but recently increased to 20 mg TID- high dose with side effects)
-Lumbar x-ray no fractures.
-Dexamethasone given in ER, will avoid steroid for now
-Lidocaine patch, PRN Dilaudid
-PT/OT
# History of prior CVA with left-sided hemiplegia
c/w Pradaxa, statin.
#ITP/thrombophilia
-Continue Promacta
-Continue Pradaxa
#CAD status post CABG/ PAD/ hx of ischemic CMP
He denies chest pain
-Continue statin, Imdur.
# Essential hypertension
c/w Imdur.
#GERD
-Continue Protonix
#Hypercholesterolemia
-Continue statin
#Restless leg syndrome
Not on specific medicine for it, Baclofen noted.
#Anxiety/depression
-Continue Depakote, fluoxetine, trazodone
DNR/DNI
DVT prophylaxis�Pradaxa.
Regular diet
Total dc time spent to see the patient, examine the patient, review data and lab results, discuss treatment plan with patient, nursing staff around 55 minutes
Anticipated Discharge: Today
Subjective/Interval History
-
Date of Service: April 02, 2024
Less back pain
Objective Data
-
Labs:
Laboratory Results
04/02/24
06:06
WBC 10.5
Hgb 14.0
Hct 42.8
Plt Count 193
Sodium 139
Potassium 4.0
Chloride 100
Carbon Dioxide 32 H
BUN 25 H
Creatinine 0.9
Glucose 95
Calcium 8.7
Vital Signs:
Vital Signs
Temp Pulse Resp BP Pulse Ox
97.4 F 62 18 149/89 95
04/02/24 07:10 04/02/24 07:10 04/02/24 07:10 04/02/24 07:10 04/02/24 07:10
I&O
04/01/24 04/02/24 04/03/24
06:59 06:59 06:59
Intake Total 1500 / 1500 2220 / 2220
Output Total 900 / 900 950 / 950
Balance 600 / 600 1270 / 1270
--- NOTE | 2024-04-02 13:04 | CM ---
Addendum entered by Sue Waldron 04/02/24 15:04:
[facility] accepted referrals
[facility] is #[facility] preference but will go go [facility] is that bed is available first
Addendum entered by Sue Waldron 04/02/24 13:28:
Plan: Discharge to SNF pending Bed availability and Auth approval
Addendum entered by Sue Waldron 04/02/24 13:18:
Met with patient and his caregiver at the bedside
Patient is agreeable to SNF; site options provided; preferences are [facility] and [facility]
Referrals sent via [facility]
Original Note:
PT recommended SNF; left voice mail for patient's POA to call CM
Patient lives alone one story home;
has a home school coordinator to assist 5 hours/day personal care and meals;
ambulates with quad can;
home has a Ramp
[2024-04-02] MEDS: IMODIUM 2 MG PO (15:00)
[2024-04-02 15:05] VITALS: BP 150/62
[2024-04-02] MEDS: DESYREL 150 MG PO (21:25)
[2024-04-02 23:57] VITALS: BP 95/59
[2024-04-03 00:57] VITALS: BP 144/73
[2024-04-03 06:00] VITALS: BMI 35.4
[2024-04-03 07:32] VITALS: BP 138/95
[2024-04-03] MEDS: PRADAXA 150 MG PO ×2 (08:12→21:12)
[2024-04-03] MEDS: IMDUR (EXTENDED RELEASE) 60 MG PO (08:12)
[2024-04-03] MEDS: LIDOCAINE 4% PATCH TOPICAL (08:13)
[2024-04-03] MEDS: TYLENOL 1000 MG PO ×3 (08:13→21:13)
[2024-04-03] MEDS: PROTONIX 40 MG PO ×2 (08:13→21:12)
[2024-04-03] MEDS: LIPITOR 80 MG PO (08:13)
[2024-04-03] MEDS: LIORESAL 10 MG PO ×3 (08:13→21:13)
[2024-04-03] MEDS: DEPAKOTE (12 HR RELEASE) 500 MG PO ×2 (08:13→21:12)
[2024-04-03] MEDS: PROZAC 40 MG PO (08:13)
--- NOTE | 2024-04-03 09:20 | W.PN.HOSP.TC ---
Today's Communication/Plan
-
Discharge
Assessment / Plan
Assessment / Plan
Physical Exam
General: Well Developed, Well Nourished and No Apparent Distress
HEENT: NormoCephalic, Moist mucous membranes and Atraumatic
Respiratory: Clear
Cardiac: S1/S2 and Regular Rhythm; No Murmur or Rub
GI: Soft, Non Tender, Non Distended and Normal Bowel Sounds; No Organomegaly
Rectal: no bleeding
Musculoskeletal: No Clubbing, No Cyanosis, No Edema
Skin: No Rash
Neuro: AAOX3, left sided hemiplegia, he followed commands
Psych: calm, pleasant
# Acute on chronic lower back pain after recent fall
Pain is mostly upon moving. He had left hemiplegia so he leans on right hip, probably causing OS
CRP not elevated.
Order MRI Lumbar showed advanced DJD. No evidence for acute to subacute compression fracture
Changed to Tylenol 1000 mg TID
Cut back on Baclofen ( he gets 10 mg TID but recently increased to 20 mg TID- high dose with side effects)
-Lumbar x-ray no fractures.
-Dexamethasone given in ER, will avoid steroid for now
-Lidocaine patch, PRN Dilaudid
-PT/OT
# History of prior CVA with left-sided hemiplegia
c/w Pradaxa, statin.
#ITP/thrombophilia
-Continue Promacta
-Continue Pradaxa
#CAD status post CABG/ PAD/ hx of ischemic CMP
He denies chest pain
-Continue statin, Imdur.
# Essential hypertension
c/w Imdur.
#GERD
-Continue Protonix
#Hypercholesterolemia
-Continue statin
#Restless leg syndrome
Not on specific medicine for it, Baclofen noted.
#Anxiety/depression
-Continue Depakote, fluoxetine, trazodone
DNR/DNI
DVT prophylaxis�Pradaxa.
Regular diet
Total dc time spent to see the patient, examine the patient, review data and lab results, discuss treatment plan with patient, nursing staff around 55 minutes
Anticipated Discharge: Today
Subjective/Interval History
-
Date of Service: April 03, 2024
No chest pain
Back pain is much better with Tylenol & Tramadol
Objective Data
-
Vital Signs:
Vital Signs
Temp Pulse Resp BP Pulse Ox
97.5 F 70 18 138/95 95
04/03/24 07:32 04/03/24 07:32 04/03/24 07:32 04/03/24 07:32 04/03/24 08:49
I&O
04/02/24 04/03/24 04/04/24
06:59 06:59 06:59
Intake Total 2220 / 2220 960 / 960
Output Total 950 / 950 250 / 250
Balance 1270 / 1270 710 / 710
--- NOTE | 2024-04-03 12:15 | W.DCSUMMARY ---
Discharge Summary
Discharge Data
Date of Admission: 04/02/24
Date of Discharge: 04/04/24
-
Pending Results: No
Hospital Course
64 years old male presented right-sided lower back pain for the past several weeks. He had chronic lower back pain but he stated that he fell a few weeks ago. His a primary care doctor doubled the dose of baclofen. Tylenol was not helping.
Patient has left hemiaplasia and was leaning towards the right side for a while with decreasing gait mobility. Image studies showed degenerative joint disease. MRI of the lumbar area showed degenerative joint disease with no acute or subacute
compression fractures. Patient was started on Tylenol [id number] with as needed tramadol. He started to feel better and pain was controlled. No signs of acute infectious source as white blood cell count and CRP were normal. Patient did not
have fever. Patient was able to tolerate diet. He remained hemodynamically stable. Patient was evaluated by physical therapy recommended care home facility. Patient was discharged in a stable condition.
Discharge Plan
-
Patient Disposition: Custodial/SNF
Discharge Diagnosis/Procedures: Acute on chronic lower back pain. Degenerative joint disease of lumbar area
Diet: As tolerated
Referrals:
Alan Reynoso DO [Family Provider] -
Prescriptions:
New
lidocaine 4 % Adhesive Patch,Medicated
1 patch topical DAILY Qty: 30 0RF
tramadol 50 mg Tablet
50 mg PO Q6HPRN PRN (Reason: mod to severe pain) Qty: 10 0RF
acetaminophen [Tylenol Extra Strength] 500 mg Tablet
1,000 mg PO TID Qty: 90 0RF
Continued
pantoprazole 40 MG tablet,delayed release (DR/EC)
40 mg PO BID
fluoxetine 40 mg Capsule
40 mg PO DAILY
loperamide 2 mg Capsule
2 mg PO Q6HPRN PRN (Reason: diarrhea)
therapeutic multivitamin Tablet
1 tab PO DAILY
divalproex 500 mg Tablet,Delayed Release (Dr/Ec)
500 mg PO BID
isosorbide mononitrate 60 mg Tablet Extended Release 24 Hr
60 mg PO DAILY
trazodone 150 mg Tablet
150 mg PO HS
dabigatran etexilate [Pradaxa] 150 mg Capsule
150 mg PO BID
atorvastatin 80 MG tablet
80 mg PO DAILY
Changed
baclofen 20 mg Tablet
10 mg PO TID Qty: 0 0RF
Discharge Orders:
Discharge Patient (As Directed); Ordered 04/03/24
Ordered By: Kandi Zafar
Discharge Date and Time
Print Language: GEORGIAN
--- NOTE | 2024-04-03 14:33 | CM ---
Patient medically cleared for discharge per attending. Placed a call to Nayana in admissions to determine if [facility] or [facility] can accept patient, and if so, will need NPIs to initiate auth. [facility]ana stated that [facility] offer a bed. NPI
#s for yonathan, Facility [id number] and Dr. Ndiaye [id number]. Will initiate authorization.
Plan: Case management will continue to follow and assist with discharge planning. [facility] upon obtaining authorization.
[2024-04-03 15:17] VITALS: BP 137/81
--- NOTE | 2024-04-03 16:01 | CM ---
Patient accepted at [facility].
NPI # [id number]
Accepting MD: Dr. Donahue [id number].
Will initiate authorization.
[facility] to [facility] transitions
Spoke with Mary Jane initiated
Pended auth # [id number]
Clinicals faxed to [phone]
Await determination.
Plan: skilled rehab [facility] once authorization obtained.
[2024-04-03] MEDS: DESYREL 150 MG PO (21:13)
[2024-04-03 23:00] VITALS: BP 109/68
[2024-04-04 07:05] VITALS: BP 163/89
[2024-04-04] MEDS: PROZAC 40 MG PO (09:28)
[2024-04-04] MEDS: PROTONIX 40 MG PO (09:28)
[2024-04-04] MEDS: PRADAXA 150 MG PO (09:29)
[2024-04-04] MEDS: IMDUR (EXTENDED RELEASE) 60 MG PO (09:30)
[2024-04-04] MEDS: LIDOCAINE 4% PATCH TOPICAL (09:30)
[2024-04-04] MEDS: TYLENOL 1000 MG PO (09:30)
[2024-04-04] MEDS: LIORESAL 10 MG PO (09:30)
[2024-04-04] MEDS: DEPAKOTE (12 HR RELEASE) 500 MG PO (09:30)
[2024-04-04] MEDS: LIPITOR 80 MG PO (09:31)
--- NOTE | 2024-04-04 09:55 | CM ---
Addendum entered by Zakia Elmore 04/04/24 10:04:
[facility]
Report#[phone]

Original Note:
TC from Tiera/Izabela
Approved skilled rehab at [facility]
Approved start date 04/04/24 with LCD/NRD 04/06/23
Updates to Clary Holloway P# [phone], fax # [phone]
reference # [id number]
[facility] with [facility].
--- NOTE | 2024-04-04 09:58 | W.PN.HOSP.TC ---
Today's Communication/Plan
-
dc
Assessment / Plan
Assessment / Plan
Physical Exam
General: Well Developed, Well Nourished and No Apparent Distress
HEENT: NormoCephalic, Moist mucous membranes and Atraumatic
Respiratory: Clear
Cardiac: S1/S2 and Regular Rhythm; No Murmur or Rub
GI: Soft, Non Tender, Non Distended and Normal Bowel Sounds; No Organomegaly
Rectal: no bleeding
Musculoskeletal: No Clubbing, No Cyanosis, No Edema
Skin: No Rash
Neuro: AAOX3, left sided hemiplegia, he followed commands
Psych: calm, pleasant
# Acute on chronic lower back pain after recent fall
Pain is mostly upon moving. He had left hemiplegia so he leans on right hip, probably causing OS
CRP not elevated.
Order MRI Lumbar showed advanced DJD. No evidence for acute to subacute compression fracture
Changed to Tylenol 1000 mg TID
Cut back on Baclofen ( he gets 10 mg TID but recently increased to 20 mg TID- high dose with side effects)
-Lumbar x-ray no fractures.
-Dexamethasone given in ER, will avoid steroid for now
-Lidocaine patch, PRN Dilaudid
-PT/OT
# History of prior CVA with left-sided hemiplegia
c/w Pradaxa, statin.
#ITP/thrombophilia
-Continue Promacta
-Continue Pradaxa
#CAD status post CABG/ PAD/ hx of ischemic CMP
He denies chest pain
-Continue statin, Imdur.
# Essential hypertension
c/w Imdur.
#GERD
-Continue Protonix
#Hypercholesterolemia
-Continue statin
#Restless leg syndrome
Not on specific medicine for it, Baclofen noted.
#Anxiety/depression
-Continue Depakote, fluoxetine, trazodone
DNR/DNI
DVT prophylaxis�Pradaxa.
Regular diet
Total dc time spent to see the patient, examine the patient, review data and lab results, discuss discharge/ treatment plan with patient, nursing staff around 65 minutes
Anticipated Discharge: Today
Subjective/Interval History
-
Date of Service: April 04, 2024
NO Chest pain
No sob
Objective Data
-
Vital Signs:
Vital Signs
Temp Pulse Resp BP Pulse Ox
97.5 F 63 18 163/89 96
04/04/24 07:05 04/04/24 07:05 04/04/24 07:05 04/04/24 07:05 04/04/24 07:05
I&O
04/03/24 04/04/24 04/05/24
06:59 06:59 06:59
Intake Total 960 / 960 1320 / 1320
Output Total 250 / 250 550 / 550
Balance 710 / 710 770 / 770
--- NOTE | 2024-04-04 12:03 | CM ---
Addendum entered by CRISTINE Stone 04/04/24 12:06:
# For report and fax in previous CM note.
Original Note:
Completed medical necessity and transfer sheet for [facility] to arrange for transportation. IMM reviewed and signed with patient's caregiver who had patient on the commode. Patient's caregiver stated that she will update family.
Plan: Case management will continue to follow and assist with discharge planning. [facility] today.
[2024-04-04 14:15] VITALS: BP 129/66
--- NOTE | 2024-04-04 14:30 | PTCARENOTE ---
patient denied pain or SOB, tolerating diet, sat oob most of day, discharged to [facility]
== END 2024-04-04 14:20 | DRG 552 ==
LOC: 3 WEST ACU 09:38
PROVIDERS: Physician Assistant; ADMITTING PHYSICIAN Hospitalist; ATTENDING PHYSICIAN Internal Medicine; EMERGENCY PHYSICIAN Emergency Medicine; FAMILY PHYSICIAN Family Medicine
DX: M47.816 Spondylosis without myelopathy or radiculopathy, lumbar region (principal); I50.32 Chronic diastolic (congestive) heart failure; I69.354 Hemiplegia and hemiparesis following cerebral infarction affecting left non-dominant side; D69.3 Immune thrombocytopenic purpura; D68.59 Other primary thrombophilia; Z66 Do not resuscitate; I25.10 Atherosclerotic heart disease of native coronary artery without angina pectoris; I11.0 Hypertensive heart disease with heart failure; K21.9 Gastro-esophageal reflux disease without esophagitis; E78.00 Pure hypercholesterolemia, unspecified; I25.5 Ischemic cardiomyopathy; I73.9 Peripheral vascular disease, unspecified; G25.81 Restless legs syndrome; F32.A Depression, unspecified; F41.9 Anxiety disorder, unspecified; G89.29 Other chronic pain; Z95.1 Presence of aortocoronary bypass graft; Z91.81 History of falling; Z79.899 Other long term (current) drug therapy; Z79.01 Long term (current) use of anticoagulants; Z79.52 Long term (current) use of systemic steroids
CPT/HCPCS: 72110; 72148; 80048; 80053; 81003; 85025; 85027; 86140; 96374; 96375; 96376; 97167; 97530; 99285

== ENCOUNTER 2024-08-19 18:18 | Emergency (ER) | payer OTHER, SELFPAY ==
[2024-08-19 18:20] VITALS: BP 138/102; BMI 33.3
--- NOTE | 2024-08-19 19:02 | EDRN ---
[facility] transport service is no longer available.
Pts daughter Fanny called and is speaking to pt now and might be able to pick pt up in an hour since [facility] [employer] [facility] is no longer available.
--- NOTE | 2024-08-19 21:33 | ED.GENMED ---
History of Present Illness
General
Chief Complaint: Head Injury
Source: patient
Exam Limitations: none
Time Seen by Provider: 08/19/24 18:38
Nursing documentation reviewed up to this point in time: agreed with
History of Present Illness
History of Present Illness:
64-year-old male past medical history of previous stroke with left-sided deficits, platelet issue also currently on Pradaxa presenting to the emergency department today with concerns where he fell backward mainly hitting his left ear when trying to
get into his car. No loss of consciousness no additional concerns claims that he is up-to-date with his tetanus shot.
Past History
Past History
ED Past Medical History: CAD, CVA (right parietal occipital and 2016), GERD, HTN, Hypercholesterolemia, RI and Other (ITP w/ Thrombus)
ED Past Surgical History: Cardiac (CABG, Stents) and Other (Hernia)
Social History
Tobacco: Non-smoker
Alcohol: None
Personal:
Living: with family
Employment: Not employed
Family History
Family History: Early CAD
Review of Systems
Review of Systems
Allergies reviewed?: Yes
All Other Systems: ROS reviewed and negative except as documented in HPI and ROS
Phy Exam
Physical Exam
Physical Exam:
GENERAL: Alert , in no apparent distress
EYE: pupils equal and reactive
NECK: Supple, no significant adenopathy.
ENT: Very superficial laceration to the left posterior mid auricle, no internal ear abnormality normal HEENT examination no neck o/p clr, mmm.
CARDIAC: Regular rate and rhythm .
LUNGS: Clear breath sounds bilaterally, no acute respiratory distress, no wheezes/rales/rhonchi
ABDOMEN: Soft, without focal tenderness, no r/g, no cvat
NEUROLOGICAL: Alert and oriented, no focal neuro deficits patient has a slight deficit to the left upper and left lower extremity with strength that he claims is at his baseline.
SKIN: Warm and dry, skin intact.
MUSCULOSKELETAL: No edema, well perfused.
PSYCH: Normal and appropriate interaction.
Course
Orders/Labs/Results
Orders:
Orders
08/19/24 19:06
CT Cervical Spine W/o Iv Contr Urgent
Comment:
Reason For Exam: fall hit head
CT Head W/o Iv Contrast Urgent
Comment:
Reason For Exam: fall hit head
Vital Signs
Initial and Last Documented VS:
Initial Vital Signs
Temp Pulse Resp BP Pulse Ox
98.3 F 64 16 138/102 97
08/19/24 18:20 08/19/24 18:20 08/19/24 18:20 08/19/24 18:20 08/19/24 18:20
Last Documented Vital Signs
Temp Pulse Resp BP Pulse Ox
98.3 F 62 16 138/102 94
08/19/24 18:20 08/19/24 20:00 08/19/24 18:20 08/19/24 18:20 08/19/24 20:00
MDM/Problems Addressed
MDM/Problems Addressed:
64-year-old male presenting to the emergency department today with concerns of a fall hitting his left ear. No loss of consciousness he is on Pradaxa. CT scan of the head and neck without emergent findings. He otherwise has no additional
symptoms. He does have a small laceration to his ear which was very superficial closed with Dermabond. Otherwise stable for discharge. Return precautions given.
*Critical Care Note
Total Time (30-74mins, 75-104mins- exclusive of procedures): Not Applicable
ED Attending Note
-
Portions of this chart may have been created with voice recognition software.� Occasional wrong word or��sound alike� substitutions may have occurred due to the inherent limitations of voice recognition software.
Discharge Plan
Departure
Patient Disposition: Home (Routine Discharge)
Date of Disposition: 08/19/24
Time of Disposition: 21:34
Patient with high blood pressure during this ER visit?: No
Condition: Good
Covid-19: Not Applicable
Discharge Problem:
Fall, Laceration of ear
Instructions: Laceration Repair With Glue (DC), Head Injury in Adults (DC)
Prescriptions:
No Action
pantoprazole 40 MG tablet,delayed release (DR/EC)
40 mg PO BID
fluoxetine 40 mg Capsule
40 mg PO DAILY
loperamide 2 mg Capsule
2 mg PO Q6HPRN PRN (Reason: diarrhea)
therapeutic multivitamin Tablet
1 tab PO DAILY
divalproex 500 mg Tablet,Delayed Release (Dr/Ec)
500 mg PO BID
isosorbide mononitrate 60 mg Tablet Extended Release 24 Hr
60 mg PO DAILY
trazodone 150 mg Tablet
150 mg PO HS
dabigatran etexilate [Pradaxa] 150 mg Capsule
150 mg PO BID
lidocaine 4 % Adhesive Patch,Medicated
1 patch topical DAILY Qty: 30 0RF
tramadol 50 mg Tablet
50 mg PO Q6HPRN PRN (Reason: mod to severe pain) Qty: 10 0RF
acetaminophen [Tylenol Extra Strength] 500 mg Tablet
1,000 mg PO TID Qty: 90 0RF
baclofen 20 mg Tablet
10 mg PO TID Qty: 0 0RF
atorvastatin 80 MG tablet
80 mg PO DAILY
Referrals:
Lorraine Flowers DO [Family Provider, Family Practice]
Activity Restrictions/Additional Instructions:
You came to the emergency department today with concerns of a fall. Here you had a normal head and neck CT. You had a small mount of glue placed on your left ear. This will fall off on its own over the next week. Please follow closely with your
primary care doctor within 1 week. Return for any worsening, new or concerning symptoms.
Interventions
Interventions:
*Risk Screen - Suicide Last Done: 08/19/24 18:20
*Neglect/Abuse Screening Last Done: 08/19/24 18:20
*ED- Fall Risk Assessment Last Done: 08/19/24 18:20
ED- Neurological Assessment Last Done: 08/19/24 18:20
ED-Skin Assessment Last Done: 08/19/24 18:20
Discharge Date and Time
Print Language: KOREAN
== END 2024-08-19 22:28 | disposition home or self-care (01) ==
LOC: EMR 18:18
PROVIDERS: EMERGENCY PHYSICIAN Emergency Medicine; FAMILY PHYSICIAN Family Medicine
DX: S01.312A Laceration without foreign body of left ear, initial encounter (principal); V48.4XXA Person boarding or alighting a car injured in noncollision transport accident, initial encounter; I69.354 Hemiplegia and hemiparesis following cerebral infarction affecting left non-dominant side; E78.00 Pure hypercholesterolemia, unspecified; I10 Essential (primary) hypertension; I25.10 Atherosclerotic heart disease of native coronary artery without angina pectoris; Z79.01 Long term (current) use of anticoagulants; Z95.1 Presence of aortocoronary bypass graft; Z95.5 Presence of coronary angioplasty implant and graft
CPT/HCPCS: 12011; 99284; 70450; 72125

== ENCOUNTER 2024-10-07 21:33 | Inpatient (IN) | payer OTHER, SELFPAY ==
[2024-10-07 15:34] VITALS: BP 135/72
[2024-10-07 19:00] VITALS: BP 152/82
[2024-10-07 20:48] LABS: Hematocrit 44.6 % (39.0-52.0); Hemoglobin 14.9 g/dL (13.0-18.0); Mean Corp Hgb Conc. 33.4 g/dL (33.0-37.0); Mean Corpuscular Volume 84.8 fL (80.0-94.0); Nucleated Red Blood Cells % 0 % (-); Platelet Count 190 10^3/uL (130-400); Red Cell Dist. Width 14.8 % (11.5-14.5)
--- NOTE | 2024-10-07 20:48 | ED.GENMED ---
History of Present Illness
General
Chief Complaint: Fall
Time Seen by Provider: 10/07/24 19:00
History of Present Illness
History of Present Illness:
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 Reports left heel and
left arm pain. He takes Pradaxa. Unclear if he struck his head. Primary concern is left heel pain at this point
Past History
Past History
ED Past Medical History: CAD, CVA (right parietal occipital and 2016), GERD, HTN, Hypercholesterolemia, NM and Other (ITP w/ Thrombus)
ED Past Surgical History: Cardiac (CABG, Stents) and Other (Hernia)
Social History
Tobacco: Non-smoker
Alcohol: None
Personal:
Living: with family
Employment: Not employed
Family History
Family History: Early CAD
Review of Systems
Review of Systems
Allergies reviewed?: Yes
All Other Systems: ROS reviewed and negative except as documented in HPI and ROS
Phy Exam
Physical Exam
Physical Exam:
GEN: Well appearing, NAD, WDWN
HEENT: Oral mucosa moist, no scleral icterus
Cardiac: Regular rate
Lung: No respiratory distress, no tachypnea
MSK: Moderate swelling to the left calcaneus with subtle deformity and atrophy of the left calf, uncertain if chronic
Skin: Good color, no pallor or jaundice, no rashes
Neuro: Alert and oriented x 3. Left hemiparesis at baseline
Psych: Calm, cooperative
Course
Orders/Labs/Results
Orders:
Orders
10/07/24 Breakfast
Cholesterol Lowering
At Your Request: Non-Participating
Cholesterol Lowering: Sodium, 2 Gram
10/07/24 15:[address] [CT Head W/o Iv Contrast] Urgent
Comment:
Reason For Exam: fall on pradaxa unknown head strike
Ankle, left 3 view CR [CR Ankle - Left Min 3 Views ] Urgent
Comment:
Reason For Exam: pain
CR Heel/os Calcis - Left 2 Vw* Urgent
Comment:
Reason For Exam: pain
Shoulder, Left, Trauma CR [CR Shoulder, Trauma - Left] Urgent
Comment:
Reason For Exam: pain
10/07/24 20:10
Ortho Boot Left- Treatment ONCE
Short or tall?: Tall
10/07/24 20:27
CT Lower Ext W/o Iv Cont Lt Urgent
Comment:
Reason For Exam: calcaneal fx
10/07/24 20:41
Basic Metabolic Panel Urgent
Complete Blood Count/With Diff Urgent
10/07/24 21:22
Admit/Transfer Patient As Directed
Co-Sign Provider:
Level of Care: Inpatient admission
Assign to:: Medical/Surgical
Physician / Group: jay,rosa
Diagnosis: left calcaneal fracture
Reason for Hospitalization: left calcaneal fracture
Expected length of stay greater than two midnights?: Yes
ELOS- Estimated Length of Stay in days: 3
I certify the patient meets the requirements for IP care: Yes
PRN Pain Medication Management As Directed
May give lesser potent ordered pain med per pt: Yes
preference::
Protocol:: Medication orders for pain may be administered in a
manner that supports deferring to patient preference
when the pt is:
- Requesting an ordered lesser potent pain medication.
Least to most potent pain medications are defined
as: acetaminophen < NSAID < tramadol < opioids
(morphine, oxycodone, hydromorphone).
- Requesting a lesser dose of the same medication IF
ORDERED.
- Requesting a less intrusive route of administration
if both routes are prescribed by the provider (PO <
IV).
10/07/24 21:23
Code Status As Directed
Resuscitation Status: Full Code
10/07/24 22:46
Oxycodone [Roxicodone] 10 mg PO Q4HPRN PRN
Oxycodone [Roxicodone] 5 mg PO Q4HPRN PRN
10/07/24 23:11
Baclofen [Lioresal] 20 mg PO TID
Dabigatran Etexilate Mesylate [Pradaxa] 150 mg PO BID
Divalproex Delayed Rel. 12 Hr [Depakote (12 Hr Release)] 500 mg PO BID
Docusate Sodium [Colace] 100 mg PO BID
Magnesium Hydroxide [Milk of Magnesia] 30 ml PO DAILYPRN PRN
Pantoprazole [Protonix] 20 mg PO BID
Sennosides [Senokot] 17.2 mg PO BID
Tamsulosin [Flomax] 0.4 mg PO DAILYPRN PRN
Trazodone [Desyrel] 100 mg PO HS
fluoxetine 40 mg PO BID
10/07/24 23:11
Case Management Consult ONCE
Case Management Consult: Discharge Planning
ORTHOPEDIC CONSULT Routine
Consulting Provider: Alistair Palacio
Was physician already notified: Yes
VTE Contraindication Routine
VTE Mechanical Device Contraindication: Medical Contraindication
Pharmocologic Contraindication: At risk for falls
Activity As Directed
Activity Level: As Tolerated
Comment: NWB in boot
Bladder Scan As Directed
Follow Bladder Retention/Intermittent Cath Algorithm?: Yes
PRN if no void in __ hours: 6
Comment: if not voiding 6 hrs upon arrival to floor, bladder scan & follow algorithm
Intake/ Output As Directed
Frequency: Per unit guidelines
Straight Cath As Directed
Frequency: Per Retention Algorithm
Additional Instructions: straight cath as needed per acute urinary retention algorithm for 24 hrs
Additional Instructions: for bladder scan greater than 400 mL
Vital Signs As Directed
Frequency: Per unit guidelines
Ot Eval And Treat Routine
Pt Eval And Treat Routine
Activity Level: As Tolerated
10/08/24 00:00
Acetaminophen [Tylenol] 650 mg PO Q4HWA
10/08/24 08:00
Atorvastatin [Lipitor] 80 mg PO DAILY
ISOSORBIDE MONOnitrate ER [Imdur (Extended Release)] 40 mg PO DAILY
Abnormal Lab Results
10/07/24
20:41
WBC 12.6 H 10^3/uL
(4.8-10.8)
RDW 14.8 H %
(11.5-14.5)
Abs Immat Gran (auto) 0.1 H 10^3/uL
(0-0.05)
Absolute Neuts (auto) 8.7 H 10^3/uL
(1.4-6.5)
Absolute Monos (auto) 1.1 H 10^3/uL
(0.1-0.6)
Lymphocytes % 19.9 L %
(20.5-51.1)
BUN 23 H mg/dl
(9-20)
10/07/24 20:41
10/07/24 20:41
Vital Signs
Initial and Last Documented VS:
Initial Vital Signs
Temp Pulse Resp BP Pulse Ox
98.6 F 62 18 135/72 96
10/07/24 15:34 10/07/24 15:34 10/07/24 15:34 10/07/24 15:34 10/07/24 15:34
Last Documented Vital Signs
Temp Pulse Resp BP Pulse Ox
98.7 F 62 18 112/83 89
10/07/24 22:58 10/07/24 15:34 10/07/24 15:34 10/07/24 22:51 10/07/24 22:51
MDM/Problems Addressed
MDM/Problems Addressed:
Unfortunately he has sustained a calcaneus fracture on his hemiparetic side, as a result he will not be able to use assistive devices to help with ambulation. He lives alone and cannot mobilize himself in a wheelchair due to left-sided hemiparesis.
We will admit him for PT OT and case management/SNF considerations given his baseline functional difficulties per Ortho he should remain nonweightbearing in a boot
*Pulse Oximetry
SaO2: 96
Oxygen Mode of Delivery: Room air
Patient hypoxic: no
*Critical Care Note
Total Time (30-74mins, 75-104mins- exclusive of procedures): Not Applicable
ED Attending Note
-
Portions of this chart may have been created with voice recognition software.� Occasional wrong word or��sound alike� substitutions may have occurred due to the inherent limitations of voice recognition software.
Discharge Plan
Departure
Patient Disposition: Admit
Date of Disposition: 10/07/24
Time of Disposition: 20:52
Admit to: Med/Surg
Presentation/result/management discussed w/ accepting MD/DO: Hospitalist
Discharge Problem:
Calcaneus fracture, left
Interventions
Interventions:
*Risk Screen - Suicide Last Done: 10/07/24 15:34
*General Assessment Last Done: 10/07/24 15:34
*Neglect/Abuse Screening Last Done: 10/07/24 15:34
*ED- Fall Risk Assessment Last Done: 10/07/24 15:34
*ED COVID-19 Vaccine History Last Done: 10/07/24 15:34
ED-Musculoskeletal Assessment Last Done: 10/07/24 19:01
ED- Neurological Assessment Last Done: 10/07/24 19:01
ED-Skin Assessment Last Done: 10/07/24 19:01
--- NOTE | 2024-10-07 20:55 | HPS.HSE ---
Family Physician
-
Family Physician: Lorraine Flowers
Chief Complaint
-
mechanical all
History of Present Illness
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 Reports left
heel and left arm pain. he hit his back of the head on the floor. denied fever, chills, cough, congestion. denid SHARMA,dizzy or syncope. denied abdominal pain, n,v,d. denied dysuria or hematuria.
noted to have left calcaneal fracture. admitting for further managment.
Medical History
Past Medical History
Past Medical History: Reports Other
Additional Past Medical History:
Ischemic cardiomyopathy
Dyslipidemia
Coronary artery disease
GERD
Hypertension
UTI
Depression
CVA
MERLYN
PVD
Past Surgical History: Reports Other
Additional Past Surgical History:
Coronary artery stent
Coronary artery bypass graft
Social History
Tobacco: Non-smoker
Alcohol: None
Drug: None
Living: Alone
Family History
Family History: Not pertinent
Allergies / Home Medications
Allergies reflects when Allergies were last updated in [facility].
Home Medications with original date entered in [employer]
Allergy/Medication List:
Allergies
Allergy/AdvReac Type Severity Reaction Status Date / Time
No Known Allergies Allergy Verified 10/07/24 15:39
Home Medications
pantoprazole 40 mg tablet,delayed release 20 mg PO BID Gastrointestinal Issue 06/17/15
atorvastatin 80 mg tablet 80 mg PO DAILY High Cholesterol 09/07/15
dabigatran etexilate 150 mg capsule (Pradaxa) 150 mg PO BID Blood Clot Prevention/Tx 03/30/24
divalproex 500 mg tablet,delayed release 500 mg PO BID Neurological Condition 03/30/24
fluoxetine 40 mg capsule 40 mg PO BID depression/anxiety 03/30/24
isosorbide mononitrate 60 mg tablet,extended release 24 hr 40 mg PO DAILY Heart Disease/Condition 03/30/24
trazodone 150 mg tablet 100 mg PO HS sleep 03/30/24
baclofen 20 mg tablet 20 mg PO TID spasm, pain 10/07/24
Review of Systems
-
Constitutional: Reports No Symptoms
EENT: Reports No Symptoms
Respiratory: Reports No Symptoms
Cardiac: Reports No Symptoms
Abdomen/GI: Reports No Symptoms
: Reports No Symptoms
Musculoskeletal: Reports Other (left foot pain)
Skin: Reports No Symptoms
Neurological: Reports No Symptoms
Endocrine: Reports No Symptoms
Hematologic/Lymphatic: Reports No Symptoms
Psych: Reports No Symptoms
Physical Exam
Vital Signs
Vital Signs
Temp Pulse Resp BP Pulse Ox
98.6 F 62 18 152/82 96
10/07/24 15:34 10/07/24 15:34 10/07/24 15:34 10/07/24 19:00 10/07/24 20:52
Physical Exam
General: Well Developed, Well Nourished and No Apparent Distress
HEENT: NormoCephalic, Moist mucous membranes and Atraumatic
Respiratory: Clear
Cardiac: S1/S2 and Regular Rhythm; No Murmur or Rub
GI: Soft, Non Tender, Non Distended and Normal Bowel Sounds; No Organomegaly
Rectal: Deferred by Provider
Musculoskeletal: No Clubbing, No Cyanosis and No Edema
Skin: No Rash
Neuro: Nonfocal/grossly intact
Psych: Calm
Laboratory Results
-
10/07/24 20:41
Data Reviewed
-
Diagnostic Radiology: Report Reviewed by me
Lab Data: Labs Reviewed by me
Impression/Plan
-
#left calcaneal fracture
-as per ortho NWB in boot
-PT/TO consulted
-CM consulted for dispo planning
- Shoulder x-ray with no acute fracture
- X-ray of ankle with impression of Acute nondisplaced extra-articular avulsion fracture of the left calcaneal tuberosity.
- Head CT with No CT evidence for acute intracranial hemorrhage.LARGE CHRONIC TRANSCORTICAL INFARCT in the RIGHT FRONTAL and PARIETAL LOBES with associated encephalomalacia which appears chronic and unchanged.
# Leukocytosis likely reactive
- WBC 12.6, patient is afebrile
- Continue to monitor
# History of prior CVA with left-sided hemiplegia
c/w Pradaxa, statin.
#ITP/thrombophilia
#CAD status post CABG/ PAD/ hx of ischemic CMP
-He denies chest pain
-Continue statin, Imdur.
# Essential hypertension
c/w Imdur.
#GERD
-Continue Protonix
#Hypercholesterolemia
-Continue statin
#Restless leg syndrome
Not on specific medicine for it, Baclofen noted.
#Anxiety/depression
-Continue Depakote, fluoxetine, trazodone
full code
DVT prophylaxis�Pradaxa.
Regular diet
[2024-10-07 21:10] LABS: Blood Urea Nitrogen 23 mg/dl (9-20); Calcium 9.3 mg/dl (8.4-10.2); Carbon Dioxide 28 mmol/L (22-30); Chloride 105 mmol/L (98-107); Glucose 95 mg/dl (70-99); Sodium 139 mmol/L (135-145); eGFR > 60.00
--- NOTE | 2024-10-07 21:22 | W.PN.UPDATE ---
Update Note
Progress Note Update
This note serves as an addendum to the H&P by contract project manager MERLYN
Mandi LIZETTE
HPI
64M chr gait dysfunction, uses waker, HX CVA with left-sided hemiparesis, ITP, CAD status post CABG, atrial tachycardia, HFpEF, hypertension, GERD, hypercholesteremia seen at ER:
- s/p fall from the recliner while attempting to use his walker.
- left heel and left arm pain.
- On Pradaxa.
- Unclear if he struck his head.
Relevant VS: HR 62, BP 135/70 96 on RA
PE
Gen: Not toxic
HEENT: symmetric face , nl speech
Neck: supple
Lungs:CTA
Cor: RRR S1 S2
Abdomen: benign exam
CONTRACT ACCOUNTANT: chr Lt sided heiparesis
MS: no edema
Psych: approraite
Laboratory
12/02/20 10/07/24
13:32 20:41
INR 1.22
BUN 23 H
Creatinine 0.8
eGFR > 60.00
[address]
1. No CT evidence for acute intracranial hemorrhage.
2. LARGE CHRONIC TRANSCORTICAL INFARCT in the RIGHT FRONTAL and PARIETAL LOBES with associated encephalomalacia which appears chronic and unchanged.
L Shoulder XR
1. No radiographic evidence for acute fracture or dislocation.
2. Moderate osteoarthritis of the left glenohumeral joint.
3. Mild osteoarthritis of the left acromioclavicular joint.
CR Ankle - Heel/os Calcis view
- Acute nondisplaced extra-articular avulsion fracture of the left calcaneal tuberosity.
Last hospitalist admission: 04/02/24 - 04/04/24
DC DXs; Acute on chronic LBP MRI evidence of DJD Lx spine ( [place] Fx)
ASSESSMENT & PLAN
Acute L calcaneal fx. s/p fall
HX Lt side .hemiparesis
- Unclear head strike but NEG HCT
- Per ortho must be NWB
- PRN analgesia
- PT/OT
- Ortho consulted
Acute heel Fx
lives alone
HX Lt sided hemiparesis
- need SNF placement
Prior HX CVA with left-sided hemiparesis
- on Pradaxa
ITP/thrombophilia
- on Promacta
- on Pradaxa
CAD status post CABG HX
HX ICM
- on statin
PAD HX
Essential hypertension
- on [employer] lisinopril
GERD
- on Protonix
Hypercholesterolemia
-Continue statin
Restless leg syndrome
- on ropinirole
Anxiety/depression
- on Risperdal, fluoxetine, trazodone
DVT Px: on Pradaxa
Full code
IP MS
[2024-10-07 22:51] VITALS: BP 112/83
[2024-10-07] MEDS: ROXICODONE 10 MG PO (22:53)
[2024-10-07 23:00] VITALS: BP 147/78
[2024-10-07 23:31] VITALS: BP 136/84
[2024-10-07] MEDS: PROTONIX 20 MG PO (23:57)
[2024-10-07] MEDS: COLACE 100 MG PO (23:57)
[2024-10-07] MEDS: SENOKOT 17.2 MG PO (23:58)
[2024-10-07] MEDS: PRADAXA 150 MG PO (23:58)
[2024-10-07] MEDS: PROZAC 40 MG PO (23:58)
[2024-10-07] MEDS: LIORESAL 20 MG PO (23:59)
[2024-10-07] MEDS: TYLENOL 650 MG PO (23:59)
[2024-10-08] MEDS: DEPAKOTE (12 HR RELEASE) 500 MG PO ×3 (00:19→20:09)
--- NOTE | 2024-10-08 00:40 | PTCARENOTE ---
Pt arrived to floor via stretcher from the ED. Pt pulled over from stretcher to bed, pt non wt bearing on left due to facture and left foot boot. Pt with hx CVA with left sided hemiparesis. Pt has some movement of left arm. Tremors noted, pt states
chronic. HR irreg. POX 94% on Ra. lungs dec at bases. + bowel, round abd. Pt using urinal when needed. Palpable peripheral pulses noted. Left foot boot in place. Pt reports pain 6/10 at this time. Right AC int capped. Pt brushed teeth. Call villa in
reach. Bed alarm in place. Pt positioned per comfort. will continue to monitor.
[2024-10-08] MEDS: ROXICODONE 10 MG PO ×2 (02:55→07:12)
[2024-10-08] MEDS: TYLENOL PO ×2 (04:50→23:54)
[2024-10-08 08:00] VITALS: BP 123/59
[2024-10-08] MEDS: LIPITOR 80 MG PO (08:38)
[2024-10-08] MEDS: COLACE 100 MG PO ×2 (08:38→20:07)
[2024-10-08] MEDS: PROTONIX 20 MG PO ×2 (08:38→20:09)
[2024-10-08] MEDS: TYLENOL 650 MG PO ×4 (08:38→20:08)
[2024-10-08] MEDS: SENOKOT 17.2 MG PO ×2 (08:39→20:18)
[2024-10-08] MEDS: PRADAXA 150 MG PO ×2 (08:39→20:08)
[2024-10-08] MEDS: LIORESAL 20 MG PO ×3 (08:39→20:37)
[2024-10-08] MEDS: IMDUR (EXTENDED RELEASE) 60 MG PO (08:39)
[2024-10-08] MEDS: PROZAC 40 MG PO ×2 (08:39→20:08)
--- NOTE | 2024-10-08 08:46 | W.PN.HOSP.TC ---
Today's Communication/Plan
-
see bold
Assessment / Plan
Assessment / Plan
HPI: 64-year-old male with history of prior dense right MCA infarct with resultant left hemiparesis, HLD, HTn presents to the emergency department for evaluation after a fall, he fell from his recliner while attempting to use his walker. Reports
left heel and left arm pain. he hit his back of the head on the floor. denied fever, chills, cough, congestion. denid SHARMA,dizzy or syncope. denied abdominal pain, n,v,d. denied dysuria or hematuria.
#Left calcaneal fracture
Uses a walker at baseline, lives alone
Appreciate orthopedic surgery input, patient needs to be LLE NWB in a cam walker boot
May remove boot for dressing and shower purposes
Continue pain meds, PT/OT, laxatives
Likely will need short-term rehab
Follow-up with orthopedic surgery in the office in 2 weeks for repeat x-rays
# Leukocytosis likely reactive
WBC 12.6, patient is afebrile
No signs or symptoms of infection
# History of prior CVA with left-sided hemiplegia
Uses a walker at baseline, lives alone
Continue Pradaxa, statin
#ITP/thrombophilia
Platelets normal at this admission
#CAD status post CABG/ PAD/ hx of ischemic CMP
Continue statin, Imdur.
#GERD
Continue Protonix
#Hypercholesterolemia
Continue statin
#Restless leg syndrome
Not on specific medicine for it, Baclofen noted.
#Anxiety/depression
Continue Depakote, fluoxetine, trazodone
DVT prophylaxis�Pradaxa
Full Code
Total time spent to see the patient on the floor, examine the patient, review data and lab results, discuss treatment plan with patient, nursing staff around 36 minutes.
Physical Exam
General: No acute distress
HEENT: Normocephalic, Atraumatic, EOMI, MMM
Respiratory: Clear to Auscultation bilaterally
Cardiac: Normal S1/S2, Regular Rate and Rhythm
GI: Soft, Nontender, Nondistended, Normal Bowel Sounds
Extremities: No Clubbing, Cyanosis
Left foot in boot
Neuro: Chronic left-sided weakness
Psych: Calm, Cooperative
Anticipated Discharge: 24 - 48 hours
Subjective/Interval History
-
Date of Service: October 08, 2024
Patient reports his left heel pain is improved from admission, currently 4 out of 10 in intensity. Denies chest pain, denies shortness of breath. No fever, no vomiting.
Objective Data
-
Labs:
Laboratory Results
10/07/24
20:41
WBC 12.6 H
Hgb 14.9
Hct 44.6
Plt Count 190
Sodium 139
Potassium
Chloride 105
Carbon Dioxide 28
BUN 23 H
Creatinine 0.8
Glucose 95
Calcium 9.3
Total Bilirubin Cancelled
AST Cancelled
ALT Cancelled
Alkaline Phosphatase Cancelled
Vital Signs:
Vital Signs
Temp Pulse Resp BP Pulse Ox
98.3 F 69 18 123/59 93
10/08/24 08:00 10/08/24 08:00 10/08/24 08:00 10/08/24 08:00 10/08/24 08:00
I&O
10/07/24 10/08/24 10/09/24
06:59 06:59 06:59
Output Total 400 / 400
Balance -400 / -400
--- NOTE | 2024-10-08 12:54 | CON.ORTHO ---
Consultation
-
Date/Time Consultation Requested: 10/07/2024
Date/Time Consultation Performed: 10/08/2024
Requesting Provider: GRACIELA Champagne
Performing Provider: Misty Gillis PA-C, for Dr. Alistair Palacio
Reason for Consultation: Left calcanal fracture
Consultation - Orthopedics
History
HPI: This is a 64-year-old male who presented to [facility] emergency department after sustaining a fall onto his left side while attempting to use his walker to assist him from getting out of his chair. He does have a history of a stroke
that led to left-sided hemiparesis. He does use a muscle brace on his left ankle and did not have this in place. The walker fell away from him, causing him to land on his left shoulder. Upon presentation to the emergency department, x-rays of the
left ankle and heel were performed, which did demonstrate an acute nondisplaced avulsion fracture of the left calcaneal tuberosity. He was also complaining of shoulder pain at that time, but x-rays were negative for acute fracture or dislocation.
He was placed in a boot and it was recommended that he be nonweightbearing on the left lower extremity. With these limitations and his left-sided hemiparesis from his stroke, he was admitted to the hospitalist service and we were consulted and to
discuss treatment recommendations going forward. A CT scan was also performed. On exam today, he reports his pain is well-controlled while in the boot. He denies any pain in his left shoulder currently. He does report he suffered a similar fall
several weeks ago and did have some ankle discomfort following that, but was never checked out.
Past medical history: Prior history of CVA with left-sided hemiparesis on Pradaxa: ITP/thrombophilia, CAD status post CABG, PAD, hypertension, GERD, hypercholesterolemia, restless leg syndrome, anxiety depression.
Past surgical history: Significant for CABG.
Social history: Lives at home alone. Denies tobacco or alcohol use. Has a muffler brace and uses rolling walker at baseline.
Family history: Noncontributory.
Review of systems: All systems reviewed and negative except for those mentioned in HPI.
Allergies / Home Medications
Allergy/AdvReac Type Severity Reaction Status Date / Time
No Known Allergies Allergy Verified 10/07/24 15:39
�Medication �Instructions �Recorded
pantoprazole 40 mg tablet,delayed 20 mg PO BID Gastrointestinal Issue 06/17/15
release
atorvastatin 80 mg tablet 80 mg PO DAILY High Cholesterol 09/07/15
dabigatran etexilate 150 mg 150 mg PO BID Blood Clot 03/30/24
capsule (Pradaxa) Prevention/Tx
divalproex 500 mg tablet,delayed 500 mg PO BID Neurological 03/30/24
release Condition
fluoxetine 40 mg capsule 40 mg PO BID depression/anxiety 03/30/24
isosorbide mononitrate 60 mg 60 mg PO DAILY Heart 03/30/24
tablet,extended release 24 hr Disease/Condition
trazodone 150 mg tablet 100 mg PO HS sleep 03/30/24
baclofen 20 mg tablet 20 mg PO TID spasm, pain 10/07/24
Vital Signs / Lab Results
Temp Pulse Resp BP Pulse Ox
98.3 F 69 18 123/59 94
10/08/24 08:00 10/08/24 08:00 10/08/24 08:00 10/08/24 08:00 10/08/24 08:30
10/07/24 20:41
10/07/24 20:41
Physical examination:
General: Well-developed, well-nourished male in no acute distress at rest.
HEENT: Atraumatic, normocephalic, neck supple.
Lungs: Nonlabored breathing on room air, no audible wheezing.
Heart: Regular rate and rhythm.
Left shoulder: No tenderness palpation. No obvious swelling or ecchymosis. Near full range of motion without discomfort. Neurovascular intact distally.
Left foot/ankle: CAM Walker boot in place on left lower extremity. This was removed to reveal mild swelling about the calcaneus. Moderate tenderness to palpation about the calcaneal tuberosity. Ankle range of motion not tested. Achilles tendon
palpable. Neurovascular intact distally.
Radiographic studies:
X-ray of the ankle and heel shows evidence of a acute nondisplaced extra-articular avulsion fracture of the left calcaneal tuberosity.
X-rays of the left shoulder show no evidence of acute fracture or dislocation. Moderate arthritis of the left glenohumeral joint and mild arthritis of the left AC joint.
CT scan of the left lower extremity demonstrates a fracture of the dorsal aspect of the calcaneal tuberosity with minimal displacement. Fracture line somewhat indistinct, questioning that it may be subacute in nature. No fracture or disruption of
the subtalar articulation. No dislocation is seen.
Assessment / Plan
Assessment: Left calcaneal fracture.
Plan: X-rays and CT scan of Arie's left ankle demonstrate a subacute calcaneal tuberosity fracture with minimal displacement. Fortunately, this is amenable to nonsurgical intervention with full-time immobilization in a cam walker boot. He should
remain nonweightbearing until further notice. He may remove the boot for dressing and showering purposes, however, should minimize his time outside of the boot and limit any range of motion of his ankle. Physical therapy was present and working
with the patient upon my examination today. He will likely need a rehab placement based on his left-sided hemiparesis and current nonweightbearing status. He will call the office to schedule an appointment for outpatient follow-up in 2 weeks with
repeat x-rays. He was instructed to contact the office with any questions prior to that time. Orthopedics will sign off for the remainder of his inpatient stay. Please reengage with any questions.
[2024-10-08 13:05] VITALS: BP 112/72; PULSE 59
--- NOTE | 2024-10-08 14:40 | CM ---
Initial assessment completed with patient who lives alone in a 1 floor trailer with 4 steps to enter. Patient does not drive. He does have and uses a quad cane, RW with B/L arm rests and SC. He does have companions through [employer] for 7 hours a
week. They assist with chores and meal preparation. Does have HC-POA. No service. PCP is Dr. Lorraine Flowers. Pharmacy is [facility] on [address] in [place] and mail order through [facility]. Discharge POC: Anticipate SNF. Await PT/OT reports
and recommendations.
[2024-10-08 16:00] VITALS: BP 120/66
[2024-10-08] MEDS: ROXICODONE 5 MG PO (20:22)
[2024-10-08] MEDS: DESYREL 100 MG PO (20:37)
[2024-10-08 23:14] VITALS: BP 101/63
[2024-10-09] MEDS: TYLENOL PO ×2 (05:18→13:04)
[2024-10-09 06:28] LABS: Hematocrit 39.6 % (39.0-52.0); Hemoglobin 13.4 g/dL (13.0-18.0); Mean Corp Hgb Conc. 33.8 g/dL (33.0-37.0); Mean Corpuscular Volume 84.8 fL (80.0-94.0); Platelet Count 156 10^3/uL (130-400); Red Cell Dist. Width 14.7 % (11.5-14.5)
[2024-10-09 07:04] VITALS: BP 137/71
--- NOTE | 2024-10-09 07:49 | W.PN.HOSP.TC ---
Today's Communication/Plan
-
Patient medically cleared for discharge once bed available.
Assessment / Plan
Assessment / Plan
Impression:
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 Reports left
heel and left arm pain. he hit his back of the head on the floor. denied fever, chills, cough, congestion. denid SHARMA,dizzy or syncope. denied abdominal pain, n,v,d. denied dysuria or hematuria.
Assessment/plan:
Left calcaneal fracture
Uses a walker at baseline, lives alone
Appreciate orthopedic surgery input, patient needs to be LLE NWB in a cam walker boot
May remove boot for dressing and shower purposes
Continue pain meds, PT/OT, laxatives
Likely will need short-term rehab
Follow-up with orthopedic surgery in the office in 2 weeks for repeat x-rays
Leukocytosis likely reactive
Resolved
No signs or symptoms of infection
History of prior CVA with left-sided hemiplegia
Uses a walker at baseline, lives alone
Continue Pradaxa, statin
ITP/thrombophilia
Platelets normal at this admission
CAD status post CABG/ PAD/ hx of ischemic CMP
Continue statin, Imdur.
GERD
Continue Protonix
Hypercholesterolemia
Continue statin
Restless leg syndrome
Not on specific medicine for it, Baclofen noted.
Anxiety/depression
Continue Depakote, fluoxetine, trazodone
CODE STATUS: Full code
DVT prophylaxis: Pradaxa
Diet: cardiac diet.
Total time spent on today's encounter was 55 minutes which included time spent in counseling the patient/family regarding diagnosis and treatment plan as listed above, goals of care, and symptom management. Case was discussed with nursing staff,
specialists, and care coordinators/case management. All labs and imaging personally reviewed by me. Remainder the time spent in detailed review of previous records, lab data, imaging, and other medical provider documentation.
Anticipated Discharge: Today
Subjective/Interval History
-
Date of Service: October 09, 2024
Patient seen and examined at bedside, denies any chest pain or shortness of breath, no abdominal pain, no nausea, no vomiting, left ankle pain improved, patient complaining of constipation.
Pending discharge to rehab.
Objective Data
-
Labs:
Laboratory Results
10/09/24
05:39
WBC 9.0
Hgb 13.4
Hct 39.6
Plt Count 156
Vital Signs:
Vital Signs
Temp Pulse Resp BP Pulse Ox
98.0 F 52 18 101/63 94
10/08/24 23:14 10/08/24 23:14 10/08/24 23:14 10/08/24 23:14 10/08/24 23:14
I&O
10/08/24 10/09/24 10/10/24
06:59 06:59 06:59
Intake Total 540 / 540
Output Total 400 / 400
Balance -400 / -400 540 / 540
Physical Exam
-
General: Well Developed, Well Nourished, No Apparent Distress and Comfortable
HEENT: Normocephalic, Atraumatic, Moist Mucous Membranes, No Ptosis, PERRLA and Nose Appears Normal
Respiratory: Clear to Auscultation and Non Labored Respirations
Cardiac: Regular Rhythm and S1/S2
Breast: Deferred by me
GI: Soft, Nontender, Nondistended and Normal Bowel Sounds
Genito-urinary: No Costovertebral Tender
Musculoskeletal: No Clubbing, No Cyanosis and Other (Left foot in boot)
Skin: Warm
Neuro: Awake, Alert, Oriented, AO x 3 and Other (left-sided hemiparesis)
Psych: Calm
Data Reviewed
-
Diagnostic Radiology: Image personally visualized and interpreted and Report Reviewed by me
CT Scan: Image personally visualized and interpreted and Report Reviewed by me
Ultrasound: Image personally visualized and interpreted and Report Reviewed by me
MRI: Image personally visualized and interpreted and Report Reviewed by me
Medical Tests (Nuc Med, Echo etc): Image personally visualized and interpreted and Report Reviewed by me
Labs: Labs Reviewed by me
Old Records: Reviewed
[2024-10-09] MEDS: LIORESAL 20 MG PO ×3 (08:29→20:35)
[2024-10-09] MEDS: PROZAC 40 MG PO ×2 (08:29→20:35)
[2024-10-09] MEDS: TYLENOL 650 MG PO ×3 (08:29→20:34)
[2024-10-09] MEDS: PROTONIX 20 MG PO ×2 (08:29→20:34)
[2024-10-09] MEDS: PRADAXA 150 MG PO ×2 (08:30→20:34)
[2024-10-09] MEDS: COLACE 100 MG PO ×2 (08:30→20:35)
[2024-10-09] MEDS: LIPITOR 80 MG PO (08:30)
[2024-10-09] MEDS: SENOKOT 17.2 MG PO ×2 (08:30→20:34)
[2024-10-09] MEDS: IMDUR (EXTENDED RELEASE) 60 MG PO (08:30)
[2024-10-09] MEDS: DEPAKOTE (12 HR RELEASE) 500 MG PO ×2 (08:31→20:34)
--- NOTE | 2024-10-09 09:58 | PTCARENOTE ---
pt aaox3. staters feeling constipated stool softeners given. no pain in left leg. left ortho boot on pt. pt able to stand with 2 person assistance but unable to walk with walker. nwb on left leg.
--- NOTE | 2024-10-09 10:48 | CM ---
Addendum entered by Lissette Sims 10/09/24 12:25:
spoke with Fanny caregiver requested [facility] Referral to be entered.
Original Note:
Met with patient at bedside
PT rec SNF
patient stated does not want [facility]
Options given - requested CM call caregiver Fanny from [facility] [phone]. Left msg
Left message with POA Bill
CM to follow up with SNF options to place in [facility]
will need auth
PLAN: SNF, CM to follow up with referrals to be placed
[2024-10-09 14:15] VITALS: BP 118/47; PULSE 71; PULSE 73; O2SAT 93
[2024-10-09 15:00] VITALS: BP 107/75
[2024-10-09] MEDS: DESYREL 100 MG PO (20:35)
[2024-10-09] MEDS: ROXICODONE 5 MG PO (20:41)
[2024-10-09 23:41] VITALS: BP 105/64
[2024-10-10] MEDS: TYLENOL PO ×3 (00:48→13:06)
[2024-10-10 07:00] VITALS: BP 136/52
--- NOTE | 2024-10-10 07:09 | DOWNTIME ---
There was a [employer] Downtime on 10/10/2024 from 0100 to 10/10/2024 at 0220. Downtime documentation of patient's care, including medication administrations, has been reconciled in the electronic record per guidelines. Refer to the
patient's paper chart under the miscellaneous tab to see printed paper medication records and downtime forms.
[2024-10-10] MEDS: LIORESAL 20 MG PO ×3 (08:00→21:42)
[2024-10-10] MEDS: COLACE 100 MG PO ×2 (08:00→21:43)
[2024-10-10] MEDS: PROTONIX 20 MG PO ×2 (08:00→21:43)
[2024-10-10] MEDS: TYLENOL 650 MG PO ×3 (08:00→21:43)
[2024-10-10] MEDS: PROZAC 40 MG PO ×2 (08:01→21:43)
[2024-10-10] MEDS: DEPAKOTE (12 HR RELEASE) 500 MG PO ×2 (08:01→21:43)
[2024-10-10] MEDS: PRADAXA 150 MG PO ×2 (08:02→21:42)
[2024-10-10] MEDS: SENOKOT 17.2 MG PO ×2 (08:02→21:42)
[2024-10-10] MEDS: IMDUR (EXTENDED RELEASE) 60 MG PO (08:02)
[2024-10-10] MEDS: LIPITOR 80 MG PO (08:02)
--- NOTE | 2024-10-10 09:20 | PTCARENOTE ---
pt aaox3. states no pain. left foot in ortho boot. pulses present.
--- NOTE | 2024-10-10 10:57 | CM ---
Addendum entered by Lalita Bass RN 10/10/24 11:58:
IMM reviewed.
Original Note:
Reviewed the chart notes and spoke with the patient at the bedside. Auth submitted for [facility] through [employer]. Pended # [id number]. CM continues to be available to patient/family and is monitoring medical plan for needs at discharge.
[place] [facility]
Dr. Reis
Plan: Discharge to [facility] once auth obtained.
[2024-10-10 11:30] VITALS: BP 129/63; PULSE 60; O2SAT 95
--- NOTE | 2024-10-10 11:37 | W.PN.HOSP.TC ---
Today's Communication/Plan
-
Patient medically cleared for discharge once bed available.
Assessment / Plan
Assessment / Plan
Impression:
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 Reports left
heel and left arm pain. he hit his back of the head on the floor. denied fever, chills, cough, congestion. denid SHARMA,dizzy or syncope. denied abdominal pain, n,v,d. denied dysuria or hematuria.
Seen by orthopedic and no intervention currently.
Seen by physical for recommended rehab.
Nonweightbearing to left lower extremity.
Assessment/plan:
Left calcaneal fracture
Uses a walker at baseline, lives alone
Appreciate orthopedic surgery input, patient needs to be LLE NWB in a cam walker boot
May remove boot for dressing and shower purposes
Continue pain meds, PT/OT, laxatives
Likely will need short-term rehab
Follow-up with orthopedic surgery in the office in 2 weeks for repeat x-rays
Leukocytosis likely reactive
Resolved
No signs or symptoms of infection
History of prior CVA with left-sided hemiplegia
Uses a walker at baseline, lives alone
Continue Pradaxa, statin
ITP/thrombophilia
Platelets normal at this admission
CAD status post CABG/ PAD/ hx of ischemic CMP
Continue statin, Imdur.
GERD
Continue Protonix
Hypercholesterolemia
Continue statin
Restless leg syndrome
Not on specific medicine for it, Baclofen noted.
Anxiety/depression
Continue Depakote, fluoxetine, trazodone
CODE STATUS: Full code
DVT prophylaxis: Pradaxa
Diet: cardiac diet.
Total time spent on today's encounter was 55 minutes which included time spent in counseling the patient/family regarding diagnosis and treatment plan as listed above, goals of care, and symptom management. Case was discussed with nursing staff,
specialists, and care coordinators/case management. All labs and imaging personally reviewed by me. Remainder the time spent in detailed review of previous records, lab data, imaging, and other medical provider documentation.
Anticipated Discharge: Today
Subjective/Interval History
-
Date of Service: October 10, 2024
Patient seen and examined at bedside, denies any chest pain or shortness of breath, no abdominal pain, no nausea, no vomiting, no diarrhea or constipation.
Objective Data
-
Vital Signs:
Vital Signs
Temp Pulse Resp BP Pulse Ox
98 F 62 18 136/52 93
10/10/24 07:00 10/10/24 07:00 10/10/24 07:00 10/10/24 07:00 10/10/24 07:00
I&O
10/09/24 10/10/24 10/11/24
06:59 06:59 06:59
Intake Total 540 / 540 720 / 720
Output Total 850 / 850
Balance 540 / 540 -130 / -130
Physical Exam
-
General: Well Developed, Well Nourished, No Apparent Distress and Comfortable
HEENT: Normocephalic, Atraumatic, Moist Mucous Membranes, No Ptosis, PERRLA and Nose Appears Normal
Respiratory: Clear to Auscultation and Non Labored Respirations
Cardiac: Regular Rhythm and S1/S2
Breast: Deferred by me
GI: Soft, Nontender, Nondistended and Normal Bowel Sounds
Genito-urinary: No Costovertebral Tender
Musculoskeletal: No Clubbing, No Cyanosis and Other (Left foot in boot)
Skin: Warm
Neuro: Awake, Alert, Oriented, AO x 3 and Other (left-sided hemiparesis)
Psych: Calm
Data Reviewed
-
Diagnostic Radiology: Image personally visualized and interpreted and Report Reviewed by me
CT Scan: Image personally visualized and interpreted and Report Reviewed by me
Ultrasound: Image personally visualized and interpreted and Report Reviewed by me
MRI: Image personally visualized and interpreted and Report Reviewed by me
Medical Tests (Nuc Med, Echo etc): Image personally visualized and interpreted and Report Reviewed by me
Labs: Labs Reviewed by me
Old Records: Reviewed
[2024-10-10 15:00] VITALS: BP 138/88
[2024-10-10] MEDS: DESYREL 100 MG PO (21:43)
[2024-10-10 23:20] VITALS: BP 106/55
[2024-10-11] MEDS: TYLENOL PO ×2 (00:15→04:12)
[2024-10-11 07:44] VITALS: BP 144/92
[2024-10-11] MEDS: LIPITOR 80 MG PO (08:52)
[2024-10-11] MEDS: COLACE 100 MG PO ×2 (08:52→20:04)
[2024-10-11] MEDS: PROTONIX 20 MG PO ×2 (08:52→20:04)
[2024-10-11] MEDS: LIORESAL 20 MG PO ×3 (08:52→21:46)
[2024-10-11] MEDS: IMDUR (EXTENDED RELEASE) 60 MG PO (08:52)
[2024-10-11] MEDS: TYLENOL 650 MG PO ×4 (08:52→20:06)
[2024-10-11] MEDS: DEPAKOTE (12 HR RELEASE) 500 MG PO ×2 (08:52→20:06)
[2024-10-11] MEDS: PROZAC 40 MG PO ×2 (08:52→20:04)
[2024-10-11] MEDS: SENOKOT 17.2 MG PO (08:53)
[2024-10-11] MEDS: PRADAXA 150 MG PO ×2 (08:53→20:05)
--- NOTE | 2024-10-11 11:25 | W.PN.HOSP.TC ---
Today's Communication/Plan
-
Patient medically cleared for discharge once bed available.
Assessment / Plan
Assessment / Plan
Impression:
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 Reports left
heel and left arm pain. he hit his back of the head on the floor. denied fever, chills, cough, congestion. denid SHARMA,dizzy or syncope. denied abdominal pain, n,v,d. denied dysuria or hematuria.
Seen by orthopedic and no intervention currently.
Seen by physical for recommended rehab.
Nonweightbearing to left lower extremity.
Assessment/plan:
Left calcaneal fracture
Uses a walker at baseline, lives alone
Appreciate orthopedic surgery input, patient needs to be LLE NWB in a cam walker boot
May remove boot for dressing and shower purposes
Continue pain meds, PT/OT, laxatives
Likely will need short-term rehab
Follow-up with orthopedic surgery in the office in 2 weeks for repeat x-rays
Leukocytosis likely reactive
Resolved
No signs or symptoms of infection
History of prior CVA with left-sided hemiplegia
Uses a walker at baseline, lives alone
Continue Pradaxa, statin
ITP/thrombophilia
Platelets normal at this admission
CAD status post CABG/ PAD/ hx of ischemic CMP
Continue statin, Imdur.
GERD
Continue Protonix
Hypercholesterolemia
Continue statin
Restless leg syndrome
Not on specific medicine for it, Baclofen noted.
Anxiety/depression
Continue Depakote, fluoxetine, trazodone
CODE STATUS: Full code
DVT prophylaxis: Pradaxa
Diet: cardiac diet.
Total time spent on today's encounter was 55 minutes which included time spent in counseling the patient/family regarding diagnosis and treatment plan as listed above, goals of care, and symptom management. Case was discussed with nursing staff,
specialists, and care coordinators/case management. All labs and imaging personally reviewed by me. Remainder the time spent in detailed review of previous records, lab data, imaging, and other medical provider documentation.
Anticipated Discharge: Today
Subjective/Interval History
-
Date of Service: October 11, 2024
Patient seen and examined at bedside, denies any chest pain or shortness of breath, no abdominal pain, no nausea, no vomiting, no diarrhea or constipation.
Objective Data
-
Vital Signs:
Vital Signs
Temp Pulse Resp BP Pulse Ox
98.1 F 68 18 144/92 96
10/11/24 07:44 10/11/24 07:44 10/11/24 07:44 10/11/24 07:44 10/11/24 07:44
I&O
10/10/24 10/11/24 10/12/24
06:59 06:59 06:59
Intake Total 720 / 720 930 / 930
Output Total 850 / 850 850 / 850
Balance -130 / -130 80 / 80
Physical Exam
-
General: Well Developed, Well Nourished, No Apparent Distress and Comfortable
HEENT: Normocephalic, Atraumatic, Moist Mucous Membranes, No Ptosis, PERRLA and Nose Appears Normal
Respiratory: Clear to Auscultation and Non Labored Respirations
Cardiac: Regular Rhythm and S1/S2
Breast: Deferred by me
GI: Soft, Nontender, Nondistended and Normal Bowel Sounds
Genito-urinary: No Costovertebral Tender
Musculoskeletal: No Clubbing, No Cyanosis and Other (Left foot in boot)
Skin: Warm
Neuro: Awake, Alert, Oriented, AO x 3 and Other (left-sided hemiparesis)
Psych: Calm
Data Reviewed
-
Diagnostic Radiology: Image personally visualized and interpreted and Report Reviewed by me
CT Scan: Image personally visualized and interpreted and Report Reviewed by me
Ultrasound: Image personally visualized and interpreted and Report Reviewed by me
MRI: Image personally visualized and interpreted and Report Reviewed by me
Medical Tests (Nuc Med, Echo etc): Image personally visualized and interpreted and Report Reviewed by me
Labs: Labs Reviewed by me
Old Records: Reviewed
--- NOTE | 2024-10-11 12:22 | CM ---
Reviewed the chart notes and spoke with Domi with insurance. [facility] is no in network and patient does not have [id number] benefit. Patient request I speak with Fanny and review facilities in network. Fanny provided two names for referrals to
be sent. CM continues to be available to patient/family and is monitoring medical plan for needs at discharge.
Plan: Discharge to SNF/rehab once a bed is secured and auth obtained.
[2024-10-11] MEDS: ROXICODONE 5 MG PO ×2 (13:24→20:04)
[2024-10-11 15:18] VITALS: PULSE 60; O2SAT 96
[2024-10-11 15:40] VITALS: BP 139/59
[2024-10-11 16:11] VITALS: BP 139/59
[2024-10-11] MEDS: SENOKOT PO ×2 (20:05→20:13)
[2024-10-11] MEDS: DESYREL 100 MG PO (21:46)
[2024-10-11 23:06] VITALS: BP 107/60
[2024-10-12] MEDS: TYLENOL PO ×2 (01:16→05:06)
[2024-10-12 07:00] VITALS: BP 145/115
[2024-10-12] MEDS: LIORESAL 20 MG PO (08:59)
[2024-10-12] MEDS: IMDUR (EXTENDED RELEASE) 60 MG PO (08:59)
[2024-10-12] MEDS: PROTONIX 20 MG PO (08:59)
[2024-10-12] MEDS: PRADAXA 150 MG PO (08:59)
[2024-10-12] MEDS: SENOKOT PO ×2 (08:59→09:26)
[2024-10-12] MEDS: DEPAKOTE (12 HR RELEASE) 500 MG PO (08:59)
[2024-10-12] MEDS: TYLENOL 650 MG PO ×2 (08:59→12:14)
[2024-10-12] MEDS: COLACE 100 MG PO (08:59)
[2024-10-12] MEDS: PROZAC 40 MG PO (08:59)
[2024-10-12] MEDS: LIPITOR 80 MG PO (09:00)
--- NOTE | 2024-10-12 09:38 | CM ---
Reviewed the chart notes and spoke with Nayana admissions liaison with [facility]. [facility] can accept patient. CM updated [employer].
Approved for 10/12-10/16; NRD 10/16 with Clary Silva; fax [facility] clinicals to [phone]; Auth # [id number]
IMM reviewed.
Plan: Discharge to [facility] today.
Call report to: [phone]
Fax report to: [phone]
Medical necessity and transport forms on chart.
--- NOTE | 2024-10-12 10:04 | W.PN.HOSP.TC ---
Today's Communication/Plan
-
Patient medically cleared for discharge once bed available.
Assessment / Plan
Assessment / Plan
Impression:
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 Reports left
heel and left arm pain. he hit his back of the head on the floor. denied fever, chills, cough, congestion. denid SHARMA,dizzy or syncope. denied abdominal pain, n,v,d. denied dysuria or hematuria.
Seen by orthopedic and no intervention currently.
Seen by physical for recommended rehab.
Nonweightbearing to left lower extremity.
Assessment/plan:
Left calcaneal fracture
Uses a walker at baseline, lives alone
Appreciate orthopedic surgery input, patient needs to be LLE NWB in a cam walker boot
May remove boot for dressing and shower purposes
Continue pain meds, PT/OT, laxatives
Likely will need short-term rehab
Follow-up with orthopedic surgery in the office in 2 weeks for repeat x-rays
Leukocytosis likely reactive
Resolved
No signs or symptoms of infection
History of prior CVA with left-sided hemiplegia
Uses a walker at baseline, lives alone
Continue Pradaxa, statin
ITP/thrombophilia
Platelets normal at this admission
CAD status post CABG/ PAD/ hx of ischemic CMP
Continue statin, Imdur.
GERD
Continue Protonix
Hypercholesterolemia
Continue statin
Restless leg syndrome
Not on specific medicine for it, Baclofen noted.
Anxiety/depression
Continue Depakote, fluoxetine, trazodone
CODE STATUS: Full code
DVT prophylaxis: Pradaxa
Diet: cardiac diet.
Total time spent on today's encounter was 55 minutes which included time spent in counseling the patient/family regarding diagnosis and treatment plan as listed above, goals of care, and symptom management. Case was discussed with nursing staff,
specialists, and care coordinators/case management. All labs and imaging personally reviewed by me. Remainder the time spent in detailed review of previous records, lab data, imaging, and other medical provider documentation.
Anticipated Discharge: Today
Subjective/Interval History
-
Date of Service: October 12, 2024
Patient seen and examined at bedside, denies any chest pain or shortness of breath, no abdominal pain, no nausea, no vomiting, no diarrhea or constipation.
Objective Data
-
Vital Signs:
Vital Signs
Temp Pulse Resp BP Pulse Ox
97.6 F 59 20 145/115 93
10/12/24 07:00 10/12/24 07:00 10/12/24 07:00 10/12/24 07:00 10/12/24 07:00
I&O
10/11/24 10/12/24 10/13/24
06:59 06:59 06:59
Intake Total 930 / 930 1140 / 1140
Output Total 850 / 850 850 / 850
Balance 80 / 80 290 / 290
Physical Exam
-
General: Well Developed, Well Nourished, No Apparent Distress and Comfortable
HEENT: Normocephalic, Atraumatic, Moist Mucous Membranes, No Ptosis, PERRLA and Nose Appears Normal
Respiratory: Clear to Auscultation and Non Labored Respirations
Cardiac: Regular Rhythm and S1/S2
Breast: Deferred by me
GI: Soft, Nontender, Nondistended and Normal Bowel Sounds
Genito-urinary: No Costovertebral Tender
Musculoskeletal: No Clubbing, No Cyanosis and Other (Left foot in boot)
Skin: Warm
Neuro: Awake, Alert, Oriented, AO x 3 and Other (left-sided hemiparesis)
Psych: Calm
Data Reviewed
-
Diagnostic Radiology: Image personally visualized and interpreted and Report Reviewed by me
CT Scan: Image personally visualized and interpreted and Report Reviewed by me
Ultrasound: Image personally visualized and interpreted and Report Reviewed by me
MRI: Image personally visualized and interpreted and Report Reviewed by me
Medical Tests (Nuc Med, Echo etc): Image personally visualized and interpreted and Report Reviewed by me
Labs: Labs Reviewed by me
Old Records: Reviewed
--- NOTE | 2024-10-12 10:05 | W.DCSUMMARY ---
Discharge Summary
Discharge Data
Date of Admission: 10/07/24
Date of Discharge: 10/12/24
-
Pending Results: No
Hospital Course
Hospital course
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 Reports left
heel and left arm pain. he hit his back of the head on the floor. denied fever, chills, cough, congestion. denid SHARMA,dizzy or syncope. denied abdominal pain, n,v,d. denied dysuria or hematuria.
Seen by orthopedic and no intervention currently.
Seen by physical for recommended rehab.
Nonweightbearing to left lower extremity.
During hospitalization patient was treated from the following
Left calcaneal fracture
Uses a walker at baseline, lives alone
Appreciate orthopedic surgery input, patient needs to be LLE NWB in a cam walker boot
May remove boot for dressing and shower purposes
Continue pain meds, PT/OT, laxatives
Likely will need short-term rehab
Follow-up with orthopedic surgery in the office in 2 weeks for repeat x-rays
Leukocytosis likely reactive
Resolved
No signs or symptoms of infection
History of prior CVA with left-sided hemiplegia
Uses a walker at baseline, lives alone
Continue Pradaxa, statin
ITP/thrombophilia
Platelets normal at this admission
CAD status post CABG/ PAD/ hx of ischemic CMP
Continue statin, Imdur.
GERD
Continue Protonix
Hypercholesterolemia
Continue statin
Restless leg syndrome
Not on specific medicine for it, Baclofen noted.
Anxiety/depression
Continue Depakote, fluoxetine, trazodone
CODE STATUS: Full code
DVT prophylaxis: Pradaxa
Diet: cardiac diet
Total time spent on today's encounter was 40 minutes which included time spent in counseling the patient/family regarding diagnosis and treatment plan as listed above, goals of care, and symptom management. Case was discussed with nursing staff,
specialists, and care coordinators/case management. All labs and imaging personally reviewed by me. Remainder the time spent in detailed review of previous records, lab data, imaging, and other medical provider documentation.
Anticipated Discharge: Today
Discharge Plan
-
Patient Disposition: [facility]/SNF
Discharge Diagnosis/Procedures: Left calcaneal fracture.
History of prior CVA with left-sided hemiplegia .
Diet: Low Cholesterol and Low Sodium
Activity: Do not bear weight L leg
Additional Activity: Left lower extremity NWB in a cam walker boot.
non weight bearing until further notice.
may remove the boot for dressing and showering purposes, however, should minimize time outside of the boot and limit any range of motion of ankle.
Other Services: PT and OT
Referrals:
Lorraine Flowers DO [Family Provider, Family Practice]
Alistair Palacio MD [Active, Orthopedics] - in one to two weeks
Prescriptions:
New
acetaminophen 325 mg Tablet
650 mg PO Q4HPRN PRN (Reason: Mild Pain) Qty: 30 0RF
magnesium hydroxide [Milk of Magnesia] 400 mg/5 mL Suspension
30 ml PO DAILYPRN PRN (Reason: constipation) Qty: 0 0RF
tamsulosin 0.4 mg Capsule
0.4 mg PO DAILY Qty: 0 0RF
docusate sodium 100 mg Capsule
100 mg PO BID Qty: 0 0RF
oxycodone 5 mg Tablet
5 mg PO Q4HPRN PRN (Reason: sever pain) Qty: 7 0RF
Continued
pantoprazole 40 MG tablet,delayed release (DR/EC)
20 mg PO BID
fluoxetine 40 mg Capsule
40 mg PO BID
divalproex 500 mg Tablet,Delayed Release (Dr/Ec)
500 mg PO BID
isosorbide mononitrate 60 mg Tablet Extended Release 24 Hr
60 mg PO DAILY
trazodone 150 mg Tablet
100 mg PO HS
dabigatran etexilate [Pradaxa] 150 mg Capsule
150 mg PO BID
baclofen 20 mg tablet
20 mg PO TID
atorvastatin 80 MG tablet
80 mg PO DAILY
Discharge Orders:
Discharge Patient (As Directed); Ordered 10/10/24
Ordered By: Ildefonso Puentes
Discharge Date and Time
Print Language: KOREAN
[2024-10-12 13:01] VITALS: BP 126/66
== END 2024-10-12 13:17 | DRG 563 ==
LOC: 2 NORTH 21:33
PROVIDERS: Family Medicine; Physician Assistant; ADMITTING PHYSICIAN Internal Medicine; ATTENDING PHYSICIAN General Practice; CONSULT PHYSICIAN Orthopaedic Surgery Hand Surgery; EMERGENCY PHYSICIAN Emergency Medicine; FAMILY PHYSICIAN Family Medicine
DX: S92.055A Nondisplaced other extraarticular fracture of left calcaneus, initial encounter for closed fracture (principal); I50.32 Chronic diastolic (congestive) heart failure; D69.3 Immune thrombocytopenic purpura; I69.354 Hemiplegia and hemiparesis following cerebral infarction affecting left non-dominant side; W08.XXXA Fall from other furniture, initial encounter; I25.5 Ischemic cardiomyopathy; I25.10 Atherosclerotic heart disease of native coronary artery without angina pectoris; K21.9 Gastro-esophageal reflux disease without esophagitis; I11.0 Hypertensive heart disease with heart failure; F32.A Depression, unspecified; D72.829 Elevated white blood cell count, unspecified; E78.00 Pure hypercholesterolemia, unspecified; G25.81 Restless legs syndrome; F41.9 Anxiety disorder, unspecified; Z79.899 Other long term (current) drug therapy; Z79.01 Long term (current) use of anticoagulants; Z95.1 Presence of aortocoronary bypass graft
CPT/HCPCS: 29515; 70450; 73030; 73610; 73650; 73700; 80048; 85025; 85027; 97110; 97163; 97167; 97530; 97535; 99285

== ENCOUNTER 2025-01-05 22:35 | Inpatient (IN) | payer MEDICARE, SELFPAY ==
[2025-01-05] VITALS (10 sets, daily range): BP systolic 104–177; BP diastolic 55–148
[2025-01-05 18:22] LABS: Hematocrit 47.4 % (39.0-52.0); Hemoglobin 15.9 g/dL (13.0-18.0); Mean Corp Hgb Conc. 33.5 g/dL (33.0-37.0); Mean Corpuscular Volume 83.6 fL (80.0-94.0); Nucleated Red Blood Cells % 0 % (-); Platelet Count 194 10^3/uL (130-400); Red Cell Dist. Width 14.6 % (11.5-14.5)
[2025-01-05 18:39] LABS: COVID-19 Antigen Positive (Negative)
[2025-01-05 18:44] LABS: ALT (SGPT) 16 U/L (0-50); AST (SGOT) 23 U/L (17-59); Albumin 4.5 g/dl (3.5-5.0); Alkaline Phosphatase 72 U/L (38-126); Blood Urea Nitrogen 17 mg/dl (9-20); Calcium 9.4 mg/dl (8.4-10.2); Carbon Dioxide 30 mmol/L (22-30); Chloride 95 mmol/L (98-107); Estimated Creatinine Clearance 90 ml/min; Glucose 101 mg/dl (70-99); Potassium 4.1 mmol/L (3.5-5.1); Sodium 134 mmol/L (135-145); Total Protein 7.9 g/dl (6.3-8.2); eGFR > 60.00
--- NOTE | 2025-01-05 18:51 | ED.GENMED ---
History of Present Illness
General
Chief Complaint: Change in Mental Status
Source: patient
Exam Limitations: none
Time Seen by Provider: 01/05/25 17:36
Nursing documentation reviewed up to this point in time: agreed with
History of Present Illness
History of Present Illness:
Patient presents to ED from halfway secondary to increased agitation and confusion. Upon arrival, patient is found to be febrile, which he was not aware of. Patient does have a cough, which patient tells me is chronic. Denies vomiting or
diarrhea. Denies headache. Denies dizziness. Denies chest pain. Denies shortness of breath.
Past History
Past History
ED Past Medical History: CAD, CVA (right parietal occipital and 2016), GERD, HTN, Hypercholesterolemia, CO and Other (ITP w/ Thrombus)
ED Past Surgical History: Cardiac (CABG, Stents) and Other (Hernia)
Social History
Tobacco: Non-smoker
Alcohol: None
Personal:
Living: with family
Employment: Not employed
Family History
Family History: Early CAD
Review of Systems
Review of Systems
Allergies reviewed?: Yes
All Other Systems: ROS reviewed and negative except as documented in HPI and ROS
Constitutional: Reports no symptoms; Denies chills
Respiratory: Reports cough; Denies trouble breathing
Cardiac: Reports no symptoms; Denies chest pain
ABD/GI: Reports no symptoms; Denies vomiting or diarrhea
Musculoskeletal: Reports no symptoms
Skin: Reports no symptoms
Neurological: Reports no symptoms; Denies dizzy or headache
Phy Exam
Physical Exam
Physical Exam:
Physical Exam
General: no apparent distress, not acutely ill. febrile
Head: nc/at. eomi
Neck: supple. no meningeal signs.
Heart: s1/s2 regular rate and rhythm
Lungs: no acute respiratory distress. rhonchi bilaterally
Abdomen: normal bowel sounds. not tender.
Neuro: alert and oriented x 3. no focal neurological deficits
Skin: no rash
Psychiatric: well kept. interactive and cooperative
Extremities: no edema. no calf tenderness.
Course
Orders/Labs/Results
Orders:
Orders
01/05/25 Breakfast
Regular
At Your Request: Limited Participation
01/05/25 17:45
EKG [Electrocardiogram (*1)] Urgent
Reason for Study: Chest Pain
EKG- Treatment ONCE
01/05/25 18:01
CR Chest - 2 Views Urgent
Comment:
Reason For Exam: suspected infection
01/05/25 18:04
COVID-19 Antigen Urgent
Source: Nasal Swab
Complete Blood Count/With Diff Urgent
Comprehensive Metabolic Panel Urgent
Lactate Level [Lactic Acid] Urgent
NT-proBNP Urgent
Urinalysis Reflex To Culture Urgent
Date Specimen was Collected: 01/05/25
Time Specimen was Collected: 17:45
Urine Microscopic Reflex Cult Urgent
Blood Culture Urgent
BINTA Source: Blood/Venous
Specimen Description:
Influenza A+B Rapid Molecular Urgent
BINTA Source: Nasal Swab
Specimen Description:
Urine Culture Urgent
BINTA Source: U
Specimen Description:
Date Specimen was Collected: 01/05/25
Time Specimen was Collected: 17:45
01/05/25 18:45
0.9% Sodium Chloride 500 ml [Nss] 500 ml IV BOLUS
Acetaminophen [Tylenol] 650 mg PO NOW STA
01/05/25 22:18
Admit/Transfer Patient As Directed
Co-Sign Provider:
Level of Care: Inpatient admission
Assign to:: IMU- Intermediate Care
Physician / Group: Ricardo
Diagnosis: COVID-19, Sepsis, Hypoxemia
Reason for Hospitalization: COVID-19, Sepsis, Hypoxemia
Expected length of stay greater than two midnights?: Yes
ELOS- Estimated Length of Stay in days: 4
I certify the patient meets the requirements for IP care: Yes
PRN Pain Medication Management As Directed
May give lesser potent ordered pain med per pt: Yes
preference::
Protocol:: Medication orders for pain may be administered in a
manner that supports deferring to patient preference
when the pt is:
- Requesting an ordered lesser potent pain medication.
Least to most potent pain medications are defined
as: acetaminophen < NSAID < tramadol < opioids
(morphine, oxycodone, hydromorphone).
- Requesting a lesser dose of the same medication IF
ORDERED.
- Requesting a less intrusive route of administration
if both routes are prescribed by the provider (PO <
IV).
01/05/25 22:20
Code Status As Directed
Resuscitation Status: Full Code
01/05/25 23:58
Acetaminophen [Tylenol] 650 mg PO Q4HPRN PRN
Albuterol [ProAIR HFA INHALER] 2 puff INH R Q4HPRN PRN
Oxycodone [Roxicodone] 5 mg PO Q8H PRN severe pain
Remdesivir [Veklury] 200 mg 0.9% Sodium Chloride 250 ml [Nss] 210 ml IV ONCE
Patient has been symptomatic for </= 10 days?: Yes
Patient's SpO2 </= 94% on room air OR requiring oxygen?: Yes
01/05/25 23:58
Consult Notification Routine
Specialty to Notify: Pulmonary
Date consulting provider notified: 01/06/25
Time consulting provider notified: 07:09
Notified:: Provider
PULMONARY CONSULT Routine
Consulting Provider: Ly Tam
Was physician already notified: No
Reason for consult: COVID-19, Sepsis, Hypoxemia
Activity As Directed
Activity Level: Ambulate
With Assistance
I/O [Intake/ Output] As Directed
Frequency: Per unit guidelines
Precautions As Directed
Type of Precautions: Droplet
Vital Signs As Directed
Frequency: Per unit guidelines
Weight As Directed
Frequency: Daily
Oxygen Therapy [O2 Therapy] [RESP] Routine
Titrate/Wean O2 to maintain O2 sat greater than (%): 94
01/06/25 00:00
Dexamethasone Sod Phosphate [Decadron] 6 mg IV Q24H
01/06/25 04:37
CRP [C-Reactive Protein] IN AM
Complete Blood Count/No Diff IN AM
ESR [Erythrocyte Sed Rate] IN AM
Prothrombin Time IN AM
01/06/25 08:00
Atorvastatin [Lipitor] 80 mg PO DAILY
Baclofen [Lioresal] 20 mg PO TID
Dabigatran Etexilate Mesylate [Pradaxa] 150 mg PO BID
Divalproex Delayed Rel. 12 Hr [Depakote (12 Hr Release)] 500 mg PO BID
Docusate Sodium [Colace] 100 mg PO BID
Fluoxetine HCl [Prozac] 40 mg PO BID
ISOSORBIDE MONOnitrate ER [Imdur (Extended Release)] 60 mg PO DAILY
Pantoprazole [Protonix] 20 mg PO BID
Tamsulosin [Flomax] 0.4 mg PO DAILY
01/06/25 12:00
Remdesivir [Veklury] 100 mg 0.9% Sodium Chloride 250 ml [Nss] 230 ml IV DAILY@1200
01/06/25 22:00
Trazodone [Desyrel] 100 mg PO HS
Abnormal Lab Results
01/05/25
18:04
RDW 14.6 H %
(11.5-14.5)
Abs Immat Gran (auto) 0.1 H 10^3/uL
(0-0.05)
Absolute Neuts (auto) 7.1 H 10^3/uL
(1.4-6.5)
Absolute Monos (auto) 1.7 H 10^3/uL
(0.1-0.6)
Immature Gran % 0.8 H %
(0-0.5)
Lymphocytes % 14.0 L %
(20.5-51.1)
Monocytes % 16.1 H %
(1.7-9.3)
Sodium 134 L mmol/L
(135-145)
Chloride 95 L mmol/L
(98-107)
Glucose 101 H mg/dl
(70-99)
Urine Ketones 1+ A
(Negative)
Ur Occult Blood Reflex 4+ A
(Negative)
Urine Urobilinogen 2+ A
(Neg - 1+)
Urine RBC 21-25 A /HPF
(0-2)
Urine Bacteria (Reflex) Moderate A
(Negative)
Urine Albumin (Reflex) 2+ A
(Neg - Trace)
SARS-CoV-2 Antigen Positive A
(Negative)
01/05/25 18:04
01/05/25 18:04
Vital Signs
Initial and Last Documented VS:
Initial Vital Signs
Temp Pulse Resp BP Pulse Ox
100.2 F 89 16 122/82 95
01/05/25 17:29 01/05/25 17:29 01/05/25 17:29 01/05/25 17:29 01/05/25 17:29
Last Documented Vital Signs
Temp Pulse Resp BP Pulse Ox
97.9 F 81 25 107/69 90
01/06/25 11:39 01/06/25 10:39 01/06/25 10:00 01/06/25 10:39 01/06/25 10:00
MDM/Problems Addressed
MDM/Problems Addressed:
History and exam concerning for hypoxia likely secondary to COVID-19 infection. Patient will be admitted for further evaluation and treatment, including continued supplemental oxygen administration.
*Pulse Oximetry
SaO2: 95
Oxygen Mode of Delivery: Room air
Patient hypoxic: yes
*Critical Care Note
Total Time (30-74mins, 75-104mins- exclusive of procedures): Not Applicable
ED Attending Note
-
Portions of this chart may have been created with voice recognition software.� Occasional wrong word or��sound alike� substitutions may have occurred due to the inherent limitations of voice recognition software.
Discharge Plan
Departure
Patient Disposition: Admit
Date of Disposition: 01/05/25
Time of Disposition: 21:21
Admit to: Telemetry
Presentation/result/management discussed w/ accepting MD/DO: Hospitalist
Discharge Problem:
Hypoxia, COVID-19
Interventions
Interventions:
*Risk Screen - Suicide Last Done: 01/05/25 19:30
*General Assessment Last Done: 01/05/25 19:30
*Neglect/Abuse Screening Last Done: 01/05/25 19:30
*ED- Fall Risk Assessment Last Done: 01/05/25 19:30
*ED COVID-19 Vaccine History Last Done: 01/05/25 19:52
*ED Influenza Vaccine History Last Done: 01/05/25 19:52
*Nursing Disposition Last Done: 01/05/25 23:45
ED- Pulmonary Assessment Last Done: 01/05/25 21:03
ED-Psychological Assessment Last Done: 01/05/25 23:45
ED- Neurological Assessment Last Done: 01/05/25 19:55
ED- Cardiac Assessment Last Done: 01/05/25 19:55
ED Swallowing Screen Last Done: 01/05/25 19:55
Discharge Date and Time
Discharge Date/Time: 01/05/25 23:46
[2025-01-05 19:11] LABS: Urine Character Slightly Cloudy (Clear)
[2025-01-05 19:29] LABS: Urine Squamous Cell 0-2 /LPF (Few); Urine Urothelial Cell 0-2 /LPF (FEW)
[2025-01-05 19:30] LABS: Urine Red Blood Cell 21-25 /HPF (0-2)
[2025-01-05] MEDS: NSS 500 IV (19:44)
[2025-01-05] MEDS: TYLENOL 650 MG PO (19:44)
--- NOTE | 2025-01-05 22:24 | HPS.HSE ---
Family Physician
-
Family Physician: Isai Donahue
Chief Complaint
-
Cough
History of Present Illness
Patient is a 64y M with PMH significant for L hemiparesis s/p CVA who presents to ED from local [place] for evaluation of cough. Patient states that he has had runny nose and non-productive cough for about one week. He states that he was around a
friend with similar symptoms prior to onset of his own. Patient denies subjective fevers / chills, shortness of breath, etc. He denies any GI symptoms.
Patient states that he has had COVID vaccinations in the past. [place] record shows booster received on 05/02/24.
Medical History
Past Medical History
Past Medical History: Reports Other
Additional Past Medical History:
Ischemic cardiomyopathy
Dyslipidemia
Coronary artery disease
GERD
Hypertension
UTI
Depression
CVA with Left Hemiparesis
PVD
Past Surgical History: Reports Other
Additional Past Surgical History:
Coronary artery stent
Coronary artery bypass graft
Social History
Tobacco: Non-smoker
Alcohol: None
Drug: None
Living: [facility]
Family History
Family History: Not pertinent
Allergies / Home Medications
Allergies reflects when Allergies were last updated in [facility].
Home Medications with original date entered in [facility]
Allergy/Medication List:
Allergies
Allergy/AdvReac Type Severity Reaction Status Date / Time
No Known Allergies Allergy Verified 01/05/25 17:35
Home Medications
pantoprazole 40 mg tablet,delayed release 20 mg PO BID Gastrointestinal Issue 06/17/15
atorvastatin 80 mg tablet 80 mg PO DAILY High Cholesterol 09/07/15
dabigatran etexilate 150 mg capsule (Pradaxa) 150 mg PO BID Blood Clot Prevention/Tx 03/30/24
divalproex 500 mg tablet,delayed release 500 mg PO BID Neurological Condition 03/30/24
fluoxetine 40 mg capsule 40 mg PO BID depression/anxiety 03/30/24
isosorbide mononitrate 60 mg tablet,extended release 24 hr 60 mg PO DAILY Heart Disease/Condition 03/30/24
trazodone 150 mg tablet 100 mg PO HS sleep 03/30/24
baclofen 20 mg tablet 20 mg PO TID spasm, pain 10/07/24
acetaminophen 325 mg tablet 650 mg (2 x 325 mg) PO Q4HPRN PRN Mild Pain #30 tabs 10/10/24
docusate sodium 100 mg capsule 100 mg PO BID #0 caps 10/10/24
magnesium hydroxide 400 mg/5 mL oral suspension (Milk of Magnesia) 30 ml PO DAILYPRN PRN constipation #0 mL 10/10/24
tamsulosin 0.4 mg capsule 0.4 mg PO DAILY #0 caps 10/10/24
dextromethorphan-guaifenesin 10 mg-100 mg/5 mL oral syrup 10 ml PO Q6HPRN PRN cough 01/05/25
oxycodone 5 mg tablet 5 mg PO Q8H PRN severe pain 01/05/25
Review of Systems
-
History Source: Patient
A 12 point ROS was completed and negative except as noted: Yes
Constitutional: Reports Fatigue; Denies Fever or Chills
EENT: Reports Sore Throat and Runny Nose
Respiratory: Reports Cough; Denies Trouble Breathing
Cardiac: Denies Chest Pain or Palpitations
Abdomen/GI: Denies Abdominal Pain, Nausea, Vomiting or Diarrhea
: Denies Dysuria or Frequency
Musculoskeletal: Denies Joint Pain or Edema
Neurological: Reports Headache and Weakness; Denies Dizzy
Psych: Denies Depression or Anxiety
Physical Exam
Vital Signs
Vital Signs
Temp Pulse Resp BP Pulse Ox
100.1 F 79 18 104/55 95
01/05/25 19:52 01/05/25 19:52 01/05/25 19:52 10/17/25 21:00 01/05/25 21:30
Physical Exam
General: Other (64y M in no acute distress.)
HEENT: Moist mucous membranes and PERRLA
Respiratory: Other (Diffuse coarse breath sounds. No wheezing.)
Cardiac: S1/S2 and Regular Rhythm; No Murmur
GI: Soft, Non Tender, Non Distended and Normal Bowel Sounds
Musculoskeletal: No Clubbing, No Cyanosis and Other (Trace - 1+ edema LLE.)
Neuro: AO x 3 and Other (L hemiparesis (chronic and unchanged). No new focal deficits.)
Laboratory Results
-
01/05/25 18:04
01/05/25 18:04
Laboratory Results
Lactic Acid 1.9 mmol/L (0.7-2.0) 01/05/25 18:04
Total Bilirubin 1.1 mg/dl (0.2-1.3) 01/05/25 18:04
AST 23 U/L (17-59) 01/05/25 18:04
ALT 16 U/L (0-50) 01/05/25 18:04
Alkaline Phosphatase 72 U/L (38-126) 01/05/25 18:04
Impression/Plan
-
A/P: Patient is a 64y M with PMH significant for L hemiparesis s/p CVA, hypertension and depression who presents to ED from local [place] for evaluation of worsening cough / known sick contact.
COVID-19 Pneumonia
Acute Hypoxemic Respiratory Failure secondary to the above
Sepsis secondary to the above
- Admit for further evaluation and treatment.
- Patient presents with fever, tachypnea and evidence of life threatening organ dysfunction in the form of acute hypoxemia.
- SARS-CoV-2 positive in the ED and CXR with L > R bibasilar opacities.
- Room air SpO2 in the ED was 87% and he is currently on 4 lpm of supplemental O2 with oxygenation around 90%.
- With significant O2 requirements / sepsis criteria will begin Remdesivir + dexamethasone.
- Supportive care with O2, albuterol MDI, etc.
- Follow proper isolation precautions.
- Follow for clinical improvement.
- Pulmonary evaluation for additional recommendations.
ASCVD (CAD, CVA, PAD)
Left Hemiparesis as Late Effect of CVA
- Stable. No new deficits. No chest pain, etc.
- Continue current CV med regimen including Pradaxa.
- Continue Baclofen for spasms.
Benign Hypertension
- Continue Imdur and adjust regimen as needed.
Anxiety / Depression
- Stable. Continue current psychotropic med regimen.
History of ITP
- Platelet counts are stable at present. No sequelae of bleeding, bruising, etc.
DVT Prophylaxis: Continue Pradaxa.
Code Status: Full
[2025-01-05] MEDS: ROCEPHIN 1000 MG IV (22:51)
[2025-01-06] VITALS (12 sets, daily range): BP systolic 99–125; BP diastolic 66–104; BMI 30.6; BMI 30.5
[2025-01-06] MEDS: DECADRON 6 MG IV ×2 (00:38→23:36)
[2025-01-06] MEDS: VEKLURY 250 MG IV ×2 (00:59→12:42)
[2025-01-06] MEDS: ROBITUSSIN DM 10 ML PO ×3 (01:26→21:05)
[2025-01-06 05:05] LABS: Hematocrit 43.6 % (39.0-52.0); Hemoglobin 14.4 g/dL (13.0-18.0); Mean Corp Hgb Conc. 33.0 g/dL (33.0-37.0); Mean Corpuscular Volume 85.8 fL (80.0-94.0); Platelet Count 150 10^3/uL (130-400); Red Cell Dist. Width 14.6 % (11.5-14.5)
[2025-01-06 05:10] LABS: INR 1.17; PT 15.3 Sec (11.4-14.6)
[2025-01-06 05:26] LABS: ALT (SGPT) 14 U/L (0-50); AST (SGOT) 24 U/L (17-59); Albumin 3.7 g/dl (3.5-5.0); Alkaline Phosphatase 55 U/L (38-126); Blood Urea Nitrogen 14 mg/dl (9-20); Calcium 8.9 mg/dl (8.4-10.2); Carbon Dioxide 25 mmol/L (22-30); Chloride 103 mmol/L (98-107); Estimated Creatinine Clearance 117 ml/min; Glucose 129 mg/dl (70-99); Potassium 4.6 mmol/L (3.5-5.1); Sodium 133 mmol/L (135-145); Total Protein 6.9 g/dl (6.3-8.2); eGFR > 60.00
[2025-01-06 05:28] LABS: C-Reactive Protein 51.70 mg/L (0.0-10.00)
--- NOTE | 2025-01-06 07:36 | CON.PUL ---
Consultation
Consultation Request
Date/Time Consultation Requested: 01/05/2025
Date/Time Consultation Performed: 01/06/2025
Medical History
-
Chief Complaint: Cough, shortness of breath
History of Present Illness:
Patient is a 64-year-old gentleman with history of CVA with residual left hemiparesis who presented to the emergency room from a nursing facility due to persistent cough. Also reported upper respite tract like symptoms including runny nose.
Patient reportedly been feeling sick for about a week and does report a similar sick contact prior to onset of his symptoms. No reported fever, chills or purulent expectoration. No hemoptysis reported. Patient was noted to be mildly hypoxic in
the emergency room and was started on supplemental oxygen. Workup showed a normal WBC count, positive COVID-19 status. In view of hypoxia, patient was started on dexamethasone and remdesivir, pulmonary consultation was requested for further input.
Past Medical History
Past Medical History: Reports Other
Additional Past Medical History:
Ischemic cardiomyopathy
Dyslipidemia
Coronary artery disease
GERD
Hypertension
UTI
Depression
CVA with Left Hemiparesis
PVD
Past Surgical History: Reports Other
Additional Past Surgical History:
Coronary artery stent
Coronary artery bypass graft
Social History
Tobacco: Non-smoker
Alcohol: None
Drug: None
Living: [facility]
Family History
Family History: Not pertinent
Allergies / Home Medications
Allergies / Home Medications
Allergies
Allergy/AdvReac Type Severity Reaction Status Date / Time
No Known Allergies Allergy Verified 01/05/25 17:35
Home Medications
�Medication �Instructions �Recorded �Confirmed �Last Taken �Type
pantoprazole 40 mg tablet,delayed 20 mg PO BID Gastrointestinal Issue 06/17/15 01/05/25 07/28/18 History
release
atorvastatin 80 mg tablet 80 mg PO DAILY High Cholesterol 09/07/15 01/05/25 07/28/18 History
dabigatran etexilate 150 mg 150 mg PO BID Blood Clot 03/30/24 01/05/25 Unknown History
capsule (Pradaxa) Prevention/Tx
divalproex 500 mg tablet,delayed 500 mg PO BID Neurological 03/30/24 01/05/25 Unknown History
release Condition
fluoxetine 40 mg capsule 40 mg PO BID depression/anxiety 03/30/24 01/05/25 Unknown History
isosorbide mononitrate 60 mg 60 mg PO DAILY Heart 03/30/24 01/05/25 Unknown History
tablet,extended release 24 hr Disease/Condition
trazodone 150 mg tablet 100 mg PO HS sleep 03/30/24 01/05/25 Unknown History
baclofen 20 mg tablet 20 mg PO TID spasm, pain 10/07/24 01/05/25 Unknown History
acetaminophen 325 mg tablet 650 mg (2 x 325 mg) PO Q4HPRN PRN 10/10/24 01/05/25 Unknown Rx
Mild Pain #30 tabs
docusate sodium 100 mg capsule 100 mg PO BID #0 caps 10/10/24 01/05/25 Unknown Rx
magnesium hydroxide 400 mg/5 mL 30 ml PO DAILYPRN PRN constipation 10/10/24 01/05/25 Unknown Rx
oral suspension (Milk of Magnesia) #0 mL
tamsulosin 0.4 mg capsule 0.4 mg PO DAILY #0 caps 10/10/24 01/05/25 Unknown Rx
dextromethorphan-guaifenesin 10 10 ml PO Q6HPRN PRN cough 01/05/25 01/05/25 Unknown History
mg-100 mg/5 mL oral syrup
oxycodone 5 mg tablet 5 mg PO Q8H PRN severe pain 01/05/25 01/05/25 Unknown History
Review of Systems
-
Hematologic/Lymphatic: Other (All 14 systems reviewed and negative except as stated above in the history of present illness.)
Vitals / Labs / Diagnostic Testing
Vital Signs
Temp Pulse Resp BP Pulse Ox
99.1 F 70 16 125/103 94
01/06/25 04:00 01/06/25 06:00 01/06/25 06:00 01/06/25 06:00 01/06/25 06:00
Lab Data
01/06/25 04:37
01/06/25 04:37
Laboratory Results
01/06/25
04:37
PT 15.3 H
INR 1.17
Microbiology
01/05/25 18:04 Nasal Swab Influenza Types A & B (JEY) - Final
Negative for Influenza A & B, NAAT
Negative results must be combined with clinical observations
and patient history.
Nucleic Acid Amplification test (NAAT)performed on the
[employer] platform.
Diagnostic Testing:
Physical Exam
-
HEENT: Normocephalic
Cardiovascular: S1/S2 and Peripheral Edema
Respiratory: Clear and Non-Labored Respirations
GI: Soft and Non Distended
Neurology: Awake and Alert
Skin: Warm
General: Comfortable
Assessment
-
#1. Acute hypoxic respiratory failure with COVID-19
- Patient is afebrile, WBC count normal
- Currently on 3 L supplemental oxygen, work of breathing normal.
- Agree with remdesivir and continue current dose of dexamethasone
- Wean oxygen as tolerated
#2. h/o HFrEF, LVEF 40% with Stage I Diastolic dysfunction
- BNP 5080
- 1+ pedal edema noted on exam.
- Lasix 20 mg x 1. Might need additional diuresis depending upon clinical course
Other medical diagnoses:
- H/o CAD, s/p CABG
- H/o Carotid artery disease
- H/o CVA with resultant left hemiparesis
- Hypertension, hyperlipidemia
- Obesity, BMI 30.5
- History of ITP, resolved
- GERD
- History of restless leg syndrome
- Anxiety/depression
DVT prophylaxis. Chronically anticoagulated with Pradaxa. Unclear indication.
Total time spent on this consultation/encounter _62___ minutes which includes review of history, physical exam, medications, laboratory data, personal review of imaging, extensive review of outpatient records, discussion with care team and
respiratory therapy.
Data:
CXR 12/2024: Minor bibasilar opacities, atelectasis versus mild viral pneumonia.
Sternotomy wires and mediastinal clips. No pleural effusion or pneumothorax. Stable enlargement of the cardiac silhouette. Chronic degenerative changes of the spine.
ECHO 03/2022: Moderately reduced left ventricular systolic function.
Septal and inferior wall hypokinesis. The inferior wall also looks dyskinetic
at times.
Estimated left ventricular ejection fraction is 40% by visual assessment.
Stage I diastolic dysfunction suggestive of abnormal relaxation.
No significant valvular disease.
Compared to previous echo on 08/09/2015, the ejection fraction has mildly
decreased. The inferior and inferoseptal wall motion abnormalities have
worsened. However, the prior study utilized Definity contrast, which offer a
more accurate assessment of wall motion abnormality.
[facility] 05/2014: 1: Overall preserved systolic function with LVEF 55%
2: Severe multivessel CAD as described with patent HUDSON to LAD and occluded SVG to obtuse marginal branch.
3. Medical therapy is the appropriate recommendation given his anatomy and very mild symptomatology. Continue all possible efforts at risk factor modification given the diffuse and severe nature of his vasculopathy
--- NOTE | 2025-01-06 08:01 | W.PN.HOSP.TC ---
Today's Communication/Plan
-
Doing better
Continue antiviral medication and steroid
Transfer to telemetry
Assessment / Plan
Assessment / Plan
Physical Exam
General: Not in acute distress
HEENT: Moist mucous membranes
Respiratory: Clear to Auscultation Bilaterally
Cardiac: S1/S2 and Regular Rhythm
GI: Soft, Non Tender, Non Distended and Normal Bowel Sounds
Musculoskeletal: No Cyanosis and Other (Trace - 1+ edema LLE.)
Neuro: AAO x 3 and Other (L hemiparesis (chronic and unchanged). No new focal deficits.)
Assessment/Plan
64 y/o male with past medical history significant for L hemiparesis s/p CVA, hypertension and depression, who presented to [facility], for evaluation of cough. Patient stated that he has had runny nose and
non-productive cough for about one week prior to presentation. He stated that he was around a friend with similar symptoms prior to onset of his own. At the time of admission, patient denied subjective fevers/chills, shortness of breath, any
gastrointestinal symptoms etc. Patient stated that he has had COVID vaccinations in the past. [place] record showed booster received on 05/02/24.
COVID-19 Pneumonia
Acute Hypoxemic Respiratory Failure secondary to the above
Sepsis secondary to the above
- Patient presents with fever, tachypnea and evidence of life threatening organ dysfunction in the form of acute hypoxemia.
- SARS-CoV-2 positive in the ED and CXR with L > R bibasilar opacities.
- Room air SpO2 in the ED was 87% and at the time of admission, he was on 4 LPM of supplemental O2 with oxygenation around 90%.
- With significant O2 requirements / sepsis criteria, continue both Remdesivir + Dexamethasone
- Supportive care with O2, albuterol MDI, etc.
- Follow proper isolation precautions.
- Follow for clinical improvement.
- Pulmonary evaluation for additional recommendations.
ASCVD (CAD status post coronary artery bypass graft, CVA with resultant left hemiparesis, PAD)
History of Carotid Artery Disease
Left Hemiparesis as Late Effect of CVA
- Stable. No new deficits. No chest pain, etc.
- Continue current CV med regimen including Pradaxa.
- Continue Baclofen for spasms.
Ischemic Cardiomyopathy
- BNP 5080
- 1+ pedal edema
- Lasix 20 mg x 1 today
GERD
Benign Hypertension
- Continue Imdur and adjust regimen as needed.
Anxiety / Depression
- Stable. Continue current psychotropic med regimen.
History of ITP - RESOLVED
- Platelet counts are normal at present. No sequelae of bleeding, bruising, etc.
History of Restless Legs Syndrome
Dyslipidemia
DVT Prophylaxis: Continue Pradaxa.
Code Status: Full Code
Discussed with nurse. Appears okay for transfer to [facility].
Anticipated Discharge: > 48 hours
Subjective/Interval History
-
Date of Service: January 06, 2025
Patient was seen and examined. He reported that overall his symptoms are a whole lot better, he denied any new symptoms or complaints.
Objective Data
-
Labs:
Laboratory Results
01/06/25
04:37
WBC 9.0
Hgb 14.4
Hct 43.6
Plt Count 150 D
PT 15.3 H
INR 1.17
Sodium 133 L
Potassium 4.6
Chloride 103
Carbon Dioxide 25
BUN 14
Creatinine 0.7
Glucose 129 H
Calcium 8.9
Total Bilirubin 0.9
AST 24
ALT 14
Alkaline Phosphatase 55
Vital Signs:
Vital Signs
Temp Pulse Resp BP Pulse Ox
98.7 F 70 16 125/103 94
01/06/25 07:35 01/06/25 06:00 01/06/25 06:00 01/06/25 06:00 01/06/25 06:00
I&O
01/05/25 01/06/25 01/07/25
06:59 06:59 06:59
Intake Total 370 / 370
Output Total 800 / 800
Balance -430 / -430
[2025-01-06] MEDS: PROZAC 40 MG PO ×2 (09:18→19:37)
[2025-01-06] MEDS: LIPITOR 80 MG PO (09:18)
[2025-01-06] MEDS: COLACE 100 MG PO (09:18)
[2025-01-06] MEDS: PRADAXA 150 MG PO ×2 (09:18→19:36)
[2025-01-06] MEDS: PROTONIX 20 MG PO ×2 (09:18→19:36)
[2025-01-06] MEDS: FLOMAX 0.4 MG PO (09:19)
[2025-01-06] MEDS: LIORESAL 20 MG PO ×3 (09:19→21:05)
[2025-01-06] MEDS: IMDUR (EXTENDED RELEASE) 60 MG PO (09:19)
[2025-01-06] MEDS: DEPAKOTE (12 HR RELEASE) 500 MG PO ×2 (09:19→19:36)
[2025-01-06] MEDS: LASIX 20 MG IV (10:39)
--- NOTE | 2025-01-06 11:19 | PTCARENOTE ---
Addendum entered by Efrain Thomas RN 01/06/25 16:09:
Patient states that he would NOT like to return to [facility] on [place]. Will notify CM.
Original Note:
Patient AAOx3, forgetful. Baseline hand tremors and L sided weakness. Patient c/o cough and nasal congestion, see PRNs administered. VSS. 3L NC, sats 94%. NSR with PVCs. Bed alarm on for safety, patient making needs known. Continuing to closely
monitor.
[2025-01-06] MEDS: OCEAN, SALINE MIST 2 SPRAYS NASAL ×2 (12:43→21:05)
[2025-01-06] MEDS: TYLENOL 650 MG PO (17:10)
[2025-01-06] MEDS: COLACE PO (19:27)
[2025-01-06] MEDS: ANESTHETIC LOZENGE 1 LOZENGE PO ×2 (19:36→23:36)
[2025-01-06] MEDS: DESYREL 100 MG PO (21:05)
[2025-01-07] VITALS (12 sets, daily range): BP systolic 96–124; BP diastolic 60–75; BMI 29.3
[2025-01-07 05:56] LABS: Hematocrit 44.7 % (39.0-52.0); Hemoglobin 14.8 g/dL (13.0-18.0); Mean Corp Hgb Conc. 33.1 g/dL (33.0-37.0); Mean Corpuscular Volume 85.0 fL (80.0-94.0); Platelet Count 164 10^3/uL (130-400); Red Cell Dist. Width 14.7 % (11.5-14.5)
[2025-01-07 06:09] LABS: ALT (SGPT) 16 U/L (0-50); AST (SGOT) 21 U/L (17-59); Albumin 3.5 g/dl (3.5-5.0); Alkaline Phosphatase 56 U/L (38-126); Blood Urea Nitrogen 21 mg/dl (9-20); Calcium 9.1 mg/dl (8.4-10.2); Carbon Dioxide 30 mmol/L (22-30); Chloride 102 mmol/L (98-107); Estimated Creatinine Clearance 80 ml/min; Glucose 155 mg/dl (70-99); Magnesium 1.8 mg/dl (1.6-2.3); Potassium 4.9 mmol/L (3.5-5.1); Sodium 138 mmol/L (135-145); Total Protein 6.7 g/dl (6.3-8.2); eGFR > 60.00
[2025-01-07] MEDS: ANESTHETIC LOZENGE 1 LOZENGE PO ×2 (09:36→20:36)
[2025-01-07] MEDS: LIPITOR 80 MG PO (09:37)
[2025-01-07] MEDS: PRADAXA 150 MG PO ×2 (09:37→20:42)
[2025-01-07] MEDS: LIORESAL 20 MG PO ×3 (09:38→20:35)
[2025-01-07] MEDS: IMDUR (EXTENDED RELEASE) 60 MG PO (09:38)
[2025-01-07] MEDS: COLACE PO ×2 (09:38→20:35)
[2025-01-07] MEDS: DEPAKOTE (12 HR RELEASE) 500 MG PO ×2 (09:38→20:36)
[2025-01-07] MEDS: FLOMAX 0.4 MG PO (09:38)
[2025-01-07] MEDS: PROZAC 40 MG PO ×2 (09:38→20:36)
[2025-01-07] MEDS: PROTONIX 20 MG PO ×2 (09:39→20:36)
[2025-01-07] MEDS: LASIX 20 MG IV (09:40)
--- NOTE | 2025-01-07 10:42 | W.PN.PUL3 ---
Today's Communication / Plan
-
- Additional Lasix 20 mg IV x 1
- Incentive spirometry
- Wean oxygen as tolerated
Assessment
-
Patient is a 64-year-old gentleman with history of CVA with residual left hemiparesis who presented to the emergency room from a nursing facility due to persistent cough. Also reported upper respite tract like symptoms including runny nose.
Patient reportedly been feeling sick for about a week and does report a similar sick contact prior to onset of his symptoms. No reported fever, chills or purulent expectoration. No hemoptysis reported. Patient was noted to be mildly hypoxic in
the emergency room and was started on supplemental oxygen. Workup showed a normal WBC count, positive COVID-19 status. In view of hypoxia, patient was started on dexamethasone and remdesivir, pulmonary consultation was requested for further input.
#1. Acute hypoxic respiratory failure with COVID-19
- Patient is afebrile, WBC count normal
- Currently on 3 L supplemental oxygen, work of breathing normal.
- Agree with remdesivir and continue current dose of dexamethasone
- Wean oxygen as tolerated
- Incentive spirometry
#2. h/o HFrEF, LVEF 40% with Stage I Diastolic dysfunction
- BNP 5080
- 1+ pedal edema noted on exam.
- Will give additional dose of Lasix 20 mg IV today. Might need additional diuresis depending upon clinical course
Other medical diagnoses:
- H/o CAD, s/p CABG
- H/o Carotid artery disease
- H/o CVA with resultant left hemiparesis
- Hypertension, hyperlipidemia
- Obesity, BMI 30.5
- History of ITP, resolved
- GERD
- History of restless leg syndrome
- Anxiety/depression
DVT prophylaxis. Chronically anticoagulated with Pradaxa. Unclear indication.
Total time spent on this consultation/encounter _36___ minutes which includes review of history, physical exam, medications, laboratory data, personal review of imaging, extensive review of outpatient records, discussion with care team and
respiratory therapy.
Data:
CXR 12/2024: Minor bibasilar opacities, atelectasis versus mild viral pneumonia.
Sternotomy wires and mediastinal clips. No pleural effusion or pneumothorax. Stable enlargement of the cardiac silhouette. Chronic degenerative changes of the spine.
ECHO 03/2022: Moderately reduced left ventricular systolic function.
Septal and inferior wall hypokinesis. The inferior wall also looks dyskinetic
at times.
Estimated left ventricular ejection fraction is 40% by visual assessment.
Stage I diastolic dysfunction suggestive of abnormal relaxation.
No significant valvular disease.
Compared to previous echo on 08/09/2015, the ejection fraction has mildly
decreased. The inferior and inferoseptal wall motion abnormalities have
worsened. However, the prior study utilized Definity contrast, which offer a
more accurate assessment of wall motion abnormality.
[facility] 05/2014: 1: Overall preserved systolic function with LVEF 55%
2: Severe multivessel CAD as described with patent HUDSON to LAD and occluded SVG to obtuse marginal branch.
3. Medical therapy is the appropriate recommendation given his anatomy and very mild symptomatology. Continue all possible efforts at risk factor modification given the diffuse and severe nature of his vasculopathy
Subjective Data
-
Date of Service:
Date of Service: January 07, 2025
Subjective:
Comfortably lying in bed, reports subjective clinical improvement.
Review of Systems
Genitourinary: Other (No new symptoms reported.)
Objective Data
Data Reviewed
Vital Signs / I&O / Oxygen:
Vital Signs
Temp Pulse Resp BP Pulse Ox
98.1 F 61 17 124/73 94
01/07/25 04:00 01/07/25 10:00 01/07/25 10:00 01/07/25 10:00 01/07/25 10:00
Intake and Output
01/06/25 01/07/25 01/08/25
06:59 06:59 06:59
Intake Total 370 / 370 360 / 360
Output Total 800 / 800 2049 / 2049
Balance -430 / -430 -1690 / -1690
SaO2 94
Nasal Cannula flow liters per 3
minute
Physical Exam
General: Comfortable
HEENT: Normocephalic
Cardiovascular: S1-S2 and Peripheral Edema
Respiratory: Clear and Non-Labored Respirations
GI: Soft and Non Distended
Neurology: Awake and Alert
Skin: Warm
Labs/Micro/Reports
Lab Data
01/07/25 05:32
01/07/25 05:32
Microbiology
01/06/25 00:37 Nose MRSA Screen - Final
No Methicillin Resistant Staphylococcus aureus isolated.
01/05/25 18:04 Blood/Venous Blood Culture - Preliminary
No Growth in 24 hours- Final report to follow
01/05/25 18:04 Nasal Swab Influenza Types A & B (JEY) - Final
Negative for Influenza A & B, NAAT
Negative results must be combined with clinical observations
and patient history.
Nucleic Acid Amplification test (NAAT)performed on the
[employer] platform.
[2025-01-07] MEDS: VEKLURY 250 MG IV (12:25)
--- NOTE | 2025-01-07 12:55 | PTCARENOTE ---
Pt Remdesivir would not scan, dosage correct.
--- NOTE | 2025-01-07 15:41 | CM ---
CM reviewed chart, patient Covid +, call to patients room several times, no response.
CM spoke with POA, Akash, to complete [place].
Patient admitted from [facility] SNF- Bill unsure if patient is LTC- will confirm with facility, will obtain PLOF. Bill reports patient was mostly WC bound at facility, has recently been weight bearing and able to ambulate with a rolling
walker.
Bill unsure if patient will return to - discussed Medicare.gov to review SNF ratings.
Per POA, patient was living alone in a trailer prior to SNF, did have caregivers in the home, was falling frequently, will not be returning home after rehab.
Per nurse- patient does not want to return to [facility].
TT to Hospitalist for PT orders.
Plan; SNF when stable, will confirm with [facility] if patient is a LTC resident.
--- NOTE | 2025-01-07 18:00 | W.PN.HOSP.TC ---
Today's Communication/Plan
-
Lasix
Remdesivir
Dexamethasone
Assessment / Plan
Assessment / Plan
Physical Exam
General: Not in acute distress
HEENT: Moist mucous membranes
Respiratory: Clear to Auscultation Bilaterally
Cardiac: S1/S2 and Regular Rhythm
GI: Soft, Non Tender, Non Distended and Normal Bowel Sounds
Musculoskeletal: No Cyanosis and Other (Trace - 1+ edema LLE.)
Neuro: AAO x 3 and Other (L hemiparesis (chronic and unchanged). No new focal deficits.)
Assessment/Plan
64 y/o male with past medical history significant for L hemiparesis s/p CVA, hypertension and depression, who presented to [facility] emergency room from local residential, for evaluation of cough. Patient stated that he has had runny nose and
non-productive cough for about one week prior to presentation. He stated that he was around a friend with similar symptoms prior to onset of his own. At the time of admission, patient denied subjective fevers/chills, shortness of breath, any
gastrointestinal symptoms etc. Patient stated that he has had COVID vaccinations in the past. [facility]24.
COVID-19 Pneumonia
Acute Hypoxemic Respiratory Failure secondary to the above
Sepsis secondary to the above
- Patient presented with fever, tachypnea and evidence of life threatening organ dysfunction in the form of acute hypoxemia.
- SARS-CoV-2 positive in the ED and CXR with L > R bibasilar opacities.
- Room air SpO2 in the ED was 87% and at the time of admission, he was on 4 LPM of supplemental O2 with oxygenation around 90%.
- Now on 3 L O2
- With significant O2 requirements / sepsis criteria, continue both Remdesivir + Dexamethasone
- Supportive care with O2, albuterol MDI, etc.
- Follow proper isolation precautions.
- Follow for clinical improvement.
- Pulmonary evaluation for additional recommendations.
ASCVD (CAD status post coronary artery bypass graft, CVA with resultant left hemiparesis, PAD)
History of Carotid Artery Disease
Left Hemiparesis as Late Effect of CVA
- Stable. No new deficits. No chest pain, etc.
- Continue current CV med regimen including Pradaxa.
- Continue Baclofen for spasms.
Ischemic Cardiomyopathy
- BNP 5080
- 1+ pedal edema
- Lasix 20 mg x 1 yesterday and today
GERD
Benign Hypertension
- Continue Imdur and adjust regimen as needed.
Anxiety / Depression
- Stable. Continue current psychotropic med regimen.
History of ITP - RESOLVED
- Platelet counts are normal at present. No sequelae of bleeding, bruising, etc.
History of Restless Legs Syndrome
Dyslipidemia
DVT Prophylaxis: Continue Pradaxa.
Code Status: Full Code
Discussed with nurse.
Anticipated Discharge: > 48 hours
Subjective/Interval History
-
Date of Service: January 07, 2025
Patient was seen and examined. He reported feeling okay, denied any new symptoms or complaints.
Objective Data
-
Labs:
Laboratory Results
01/07/25
05:32
Sodium 138
Potassium 4.9
Chloride 102
Carbon Dioxide 30
BUN 21 H
Creatinine 0.9
Glucose 155 H
Calcium 9.1
Total Bilirubin 0.6
AST 21
ALT 16
Alkaline Phosphatase 56
Vital Signs:
Vital Signs
Temp Pulse Resp BP Pulse Ox
98.4 F 65 25 103/70 91
01/07/25 14:48 01/07/25 16:00 01/07/25 16:00 01/07/25 16:00 01/07/25 16:00
I&O
01/06/25 01/07/25 01/08/25
06:59 06:59 06:59
Intake Total 370 / 370 360 / 360
Output Total 800 / 800 2049 / 2049 600 / 600
Balance -430 / -430 -1690 / -1690 -600 / -600
[2025-01-07] MEDS: DESYREL 100 MG PO (20:35)
[2025-01-07] MEDS: PRADAXA PO (20:36)
[2025-01-08] VITALS (12 sets, daily range): BP systolic 93–141; BP diastolic 60–85; PULSE 55; O2SAT 96
[2025-01-08] MEDS: DECADRON 6 MG IV ×2 (00:08→23:51)
--- NOTE | 2025-01-08 04:07 | PTCARENOTE ---
Assumed care of patient from daysmift RN. Pt aaox3, forgetful and tremulous. NSR on the monitor with BBB, PVCs and PACs. SpO2 94% on 1L NC. VS and assessment as documented. Patient resting in bed with call villa in reach.
[2025-01-08 06:56] LABS: Hematocrit 44.2 % (39.0-52.0); Hemoglobin 14.3 g/dL (13.0-18.0); Mean Corp Hgb Conc. 32.4 g/dL (33.0-37.0); Mean Corpuscular Volume 86.3 fL (80.0-94.0); Platelet Count 184 10^3/uL (130-400); Red Cell Dist. Width 14.7 % (11.5-14.5)
[2025-01-08 07:11] LABS: ALT (SGPT) 16 U/L (0-50); AST (SGOT) 22 U/L (17-59); Albumin 3.5 g/dl (3.5-5.0); Alkaline Phosphatase 46 U/L (38-126); Blood Urea Nitrogen 26 mg/dl (9-20); Calcium 8.6 mg/dl (8.4-10.2); Carbon Dioxide 29 mmol/L (22-30); Chloride 103 mmol/L (98-107); Estimated Creatinine Clearance 101 ml/min; Glucose 145 mg/dl (70-99); Potassium 4.7 mmol/L (3.5-5.1); Sodium 140 mmol/L (135-145); Total Protein 6.6 g/dl (6.3-8.2); eGFR > 60.00
--- NOTE | 2025-01-08 09:15 | W.PN.PUL3 ---
Today's Communication / Plan
-
Doing well now, stable on RA
Sitting in chair, no complaints
Had not been boosted in >1-2 years
Hopeful discharge planning today with transition to PO steroid course, no need to complete Remdesivir
OP FU recommended for sleep study
Assessment
-
Patient is a 64-year-old gentleman with history of CVA with residual left hemiparesis who presented to the emergency room from a nursing facility due to persistent cough. Also reported upper respite tract like symptoms including runny nose.
Patient reportedly been feeling sick for about a week and does report a similar sick contact prior to onset of his symptoms. No reported fever, chills or purulent expectoration. No hemoptysis reported. Patient was noted to be mildly hypoxic in
the emergency room and was started on supplemental oxygen. Workup showed a normal WBC count, positive COVID-19 status. In view of hypoxia, patient was started on dexamethasone and remdesivir, pulmonary consultation was requested for further input.
Acute hypoxic respiratory failure
COVID-19 PNA
Other medical diagnoses:
h/o HFrEF, LVEF 40% with Stage I Diastolic dysfunction
- H/o CAD, s/p CABG
- H/o Carotid artery disease
- H/o CVA with resultant left hemiparesis
- Hypertension, hyperlipidemia
- Obesity, BMI 30.5
- History of ITP, resolved
- GERD
- History of restless leg syndrome
- Anxiety/depression
Plan
COVID PNA, high risk features include age, BMI
- Patient is afebrile, WBC count normal
- Remdesivir is initiated x 2 doses, this has not been shown to decrease LOS/mortality/severity -- can likely stop
Continue current dose of dexamethasone/taper at discharge
Initially on 3 L supplemental oxygen, now on RA satting 94%--work of breathing normal.
Continue supplemental O2 as needed, wean as tolerated
Can transition to NRB or HFNC if indicated
Encourage daily proning and OOB
Incentive spirometry
SARS CoV2 testing positive
Isolation per hospital protocol
Anticoagulation: resumed on home pradaxa, history of ITP
Supportive care
Continue to monitor inflammatory markers as indicated
Follow fever curve
CXR reviewed: minor basilar disease
Repeat only as necessary to limit testing/exposures
Prior pulmonary history: none/known- At risk for sleep apnea given BMI, recommend outpatient study
Limit nebulizers, continue HFA as can be reasonably substituted
HF history
Current proBNP 5080
1+ pedal edema noted on exam.
Will give additional dose of Lasix 20 mg IV today. Not on lasix as OP
Might need additional diuresis depending upon clinical course
ECHO in past showing reduced function, could compete updated study
DVT prophylaxis. Chronically anticoagulated with Pradaxa.
PT/OT, IS
Data:
CXR 12/2024: Minor bibasilar opacities, atelectasis versus mild viral pneumonia. Sternotomy wires and mediastinal clips. No pleural effusion or pneumothorax. Stable enlargement of the cardiac silhouette. Chronic degenerative changes of the spine.
ECHO 03/2022: Moderately reduced left ventricular systolic function. Septal and inferior wall hypokinesis. The inferior wall also looks dyskinetic at times. Estimated left ventricular ejection fraction is 40% by visual assessment. Stage I
diastolic dysfunction suggestive of abnormal relaxation. No significant valvular disease. Compared to previous echo on 08/09/2015, the ejection fraction has mildly decreased. The inferior and inferoseptal wall motion abnormalities have worsened.
However, the prior study utilized Definity contrast, which offer a more accurate assessment of wall motion abnormality.
[facility] 05/2014: 1: Overall preserved systolic function with LVEF 55%
2: Severe multivessel CAD as described with patent HUDSON to LAD and occluded SVG to obtuse marginal branch.
3. Medical therapy is the appropriate recommendation given his anatomy and very mild symptomatology. Continue all possible efforts at risk factor modification given the diffuse and severe nature of his vasculopathy
Total time spent on this consultation/encounter __50__ minutes which includes review of history, physical exam, medications, laboratory data, personal review of imaging, extensive review of outpatient records, discussion with care team and
respiratory therapy.
Subjective Data
-
Date of Service:
Date of Service: January 08, 2025
Chief Complaint: Pulmonary Follow Up
Subjective:
No new complaints, now weaned to RA
Sitting in chair, appears comfortable
Objective Data
Data Reviewed
Vital Signs / I&O / Oxygen:
Vital Signs
Temp Pulse Resp BP Pulse Ox
97.7 F 52 19 108/61 93
01/08/25 07:59 01/08/25 04:00 01/08/25 04:00 01/08/25 04:00 01/08/25 00:00
Intake and Output
01/07/25 01/08/25 01/09/25
06:59 06:59 06:59
Intake Total 360 / 360 480 / 480
Output Total 2049 / 2049 825 / 825
Balance -1690 / -1690 -345 / -345
SaO2 93
Nasal Cannula flow liters per 1
minute
Physical Exam
General: Comfortable, Good Appetite and Other (NAD)
HEENT: Normocephalic, Anicteric and Moist Mucous Membranes
Cardiovascular: S1-S2, Regular Rhythm and Peripheral Edema (trace/BL)
Respiratory: Clear and Non-Labored Respirations
GI: Soft, Non Distended and Non Tender
Neurology: Awake, Alert, Oriented and No Motor Deficits
Skin: Warm, Dry and Good Color
Labs/Micro/Reports
Lab Data
01/08/25 06:25
01/08/25 06:25
Microbiology
01/05/25 18:04 Blood/Venous Blood Culture - Preliminary
No Growth in 48 hours- Final report to follow
01/05/25 18:04 Urine Urine Culture - Final
01/06/25 00:37 Nose MRSA Screen - Final
No Methicillin Resistant Staphylococcus aureus isolated.
01/05/25 18:04 Nasal Swab Influenza Types A & B (JEY) - Final
Negative for Influenza A & B, NAAT
Negative results must be combined with clinical observations
and patient history.
Nucleic Acid Amplification test (NAAT)performed on the
[employer] platform.
[2025-01-08] MEDS: PROZAC 40 MG PO ×2 (09:34→19:56)
[2025-01-08] MEDS: PRADAXA 150 MG PO ×2 (09:34→19:55)
[2025-01-08] MEDS: COLACE 100 MG PO ×2 (09:34→19:55)
[2025-01-08] MEDS: LIPITOR 80 MG PO (09:34)
[2025-01-08] MEDS: LIORESAL 20 MG PO ×3 (09:34→21:15)
[2025-01-08] MEDS: IMDUR (EXTENDED RELEASE) 60 MG PO (09:34)
[2025-01-08] MEDS: PROTONIX 20 MG PO ×2 (09:35→19:56)
[2025-01-08] MEDS: DEPAKOTE (12 HR RELEASE) 500 MG PO ×2 (09:35→19:55)
[2025-01-08] MEDS: ROBITUSSIN DM 10 ML PO (09:35)
[2025-01-08] MEDS: OCEAN, SALINE MIST 2 SPRAYS NASAL (09:35)
[2025-01-08] MEDS: FLOMAX 0.4 MG PO (09:35)
[2025-01-08] MEDS: ANESTHETIC LOZENGE 1 LOZENGE PO ×2 (09:38→14:49)
[2025-01-08] MEDS: VEKLURY 250 MG IV (12:20)
--- NOTE | 2025-01-08 13:32 | W.PN.HOSP.TC ---
Today's Communication/Plan
-
Stop Remdesivir given bradycardia and as per pulmonary recommendations
Continue steroids
Outpatient oxygen assessment test
manager technical training is working on SNF placement
Assessment / Plan
Assessment / Plan
Physical Exam
General: Not in acute distress
HEENT: Moist mucous membranes
Respiratory: Clear to Auscultation Bilaterally
Cardiac: S1/S2 and Regular Rhythm
GI: Soft, Non Tender, Non Distended and Normal Bowel Sounds
Musculoskeletal: No Cyanosis and Other (Trace - 1+ edema LLE.)
Neuro: AAO x 3 and Other (L hemiparesis (chronic and unchanged). No new focal deficits.)
Assessment/Plan
64 y/o male with past medical history significant for L hemiparesis s/p CVA, hypertension and depression, who presented to [facility] emergency room from local [facility], for evaluation of cough. Patient stated that he has had runny nose and
non-productive cough for about one week prior to presentation. He stated that he was around a friend with similar symptoms prior to onset of his own. At the time of admission, patient denied subjective fevers/chills, shortness of breath, any
gastrointestinal symptoms etc. Patient stated that he has had COVID vaccinations in the past. [place] showed [place] 05/02/24.
COVID-19 Pneumonia
Acute Hypoxemic Respiratory Failure secondary to the above
Sepsis secondary to the above
- Patient presented with fever, tachypnea and evidence of life threatening organ dysfunction in the form of acute hypoxemia.
- SARS-CoV-2 positive in the ED and CXR with L > R bibasilar opacities.
- Room air SpO2 in the ED was 87% and at the time of admission, he was on 4 LPM of supplemental O2 with oxygenation around 90%.
- Weaned to room air now.
- With initial significant O2 requirements/sepsis criteria, continue Dexamethasone. Stop Remdesivir because bradycardia.
- Supportive care with O2, albuterol MDI, etc.
- Follow proper isolation precautions.
- Follow for clinical improvement.
- Pulmonary evaluation for additional recommendations.
ASCVD (CAD status post coronary artery bypass graft, CVA with resultant left hemiparesis, PAD)
History of Carotid Artery Disease
Left Hemiparesis as Late Effect of CVA
- Stable. No new deficits. No chest pain, etc.
- Continue current CV med regimen including Pradaxa.
- Continue Baclofen for spasms.
Ischemic Cardiomyopathy
- BNP 5080
- 1+ pedal edema
- Lasix 20 mg x 1 yesterday and day before that
- Follow-up closely with outpatient radarman
GERD
Benign Hypertension
- Continue Imdur and adjust regimen as needed.
Anxiety / Depression
- Stable. Continue current psychotropic med regimen.
History of ITP - RESOLVED
- Platelet counts are normal at present. No sequelae of bleeding, bruising, etc.
History of Restless Legs Syndrome
Dyslipidemia
DVT Prophylaxis: Continue Pradaxa.
Code Status: Full Code
Discussed with nurse.
Anticipated Discharge: Within 24 hours
Subjective/Interval History
-
Date of Service: January 08, 2025
Patient was seen and examined. He reported feeling fine and denied any new complaints.
Objective Data
-
Labs:
Laboratory Results
01/08/25
06:25
WBC 7.4
Hgb 14.3
Hct 44.2
Plt Count 184
Sodium 140
Potassium 4.7
Chloride 103
Carbon Dioxide 29
BUN 26 H
Creatinine 0.8
Glucose 145 H
Calcium 8.6
Total Bilirubin 0.5
AST 22
ALT 16
Alkaline Phosphatase 46
Vital Signs:
Vital Signs
Temp Pulse Resp BP Pulse Ox
98.1 F 57 19 141/82 95
01/08/25 11:11 01/08/25 10:00 01/08/25 10:00 01/08/25 10:00 01/08/25 10:50
I&O
01/07/25 01/08/25 01/09/25
06:59 06:59 06:59
Intake Total 360 / 360 480 / 480
Output Total 2049 825 / 825 150 / 150
Balance -1690 / -1690 -345 / -345 -150 / -150
--- NOTE | 2025-01-08 16:36 | CM ---
F/U: IMELDA Hong was told by Hospitalist that patient is ready to return to facility. IMELDA Hong saw notes from the weekend, patient is COVID +, on day 3 of 4 of medication and notes states that he does not want to return to [facility].
IMELDA Hong spoke to [facility] to ask questions. [facility] is aware that patient does not want to return, that he had some behaviors there that were not appropriate, that the Medicaid Application was completed so not he is '[place] Pending', that the
facility really worked hard for him because he has no disposition keeping him for 6 weeks, and that in the end, they will take him back if there is no other accepting facility, and the patients wants to return.
IMELDA Hong spoke to the patient, confirmed he does not want to return, informed him Case Management Dept is limited to whomever he can be accepted at, that hopefully he likes where he accepted and can work out any concerns because eventually the
options could dwindle. Patient is not aware that he completed the Medicaid process now. Patient understood everything and referrals were made.
The barrier is hs COVID status in which some facilities may not take him for at least 10 days and or with a COVID negative Test. IMELDA Hong will see if there are any accepting facilities. PLAN: SNF to LTC
[2025-01-08] MEDS: DESYREL 100 MG PO (21:15)
[2025-01-09 03:00] VITALS: BP 111/70
[2025-01-09 03:23] VITALS: BMI 30.6
[2025-01-09 06:20] LABS: Hematocrit 41.8 % (39.0-52.0); Hemoglobin 14.0 g/dL (13.0-18.0); Mean Corp Hgb Conc. 33.5 g/dL (33.0-37.0); Mean Corpuscular Volume 86.4 fL (80.0-94.0); Platelet Count 200 10^3/uL (130-400); Red Cell Dist. Width 14.6 % (11.5-14.5)
[2025-01-09 06:44] LABS: ALT (SGPT) 14 U/L (0-50); AST (SGOT) 19 U/L (17-59); Albumin 3.2 g/dl (3.5-5.0); Alkaline Phosphatase 48 U/L (38-126); Blood Urea Nitrogen 27 mg/dl (9-20); Calcium 8.7 mg/dl (8.4-10.2); Carbon Dioxide 29 mmol/L (22-30); Chloride 103 mmol/L (98-107); Estimated Creatinine Clearance 117 ml/min; Glucose 130 mg/dl (70-99); Potassium 4.8 mmol/L (3.5-5.1); Sodium 135 mmol/L (135-145); Total Protein 6.2 g/dl (6.3-8.2); eGFR > 60.00
[2025-01-09 07:00] VITALS: BP 118/68
[2025-01-09] MEDS: IMDUR (EXTENDED RELEASE) 60 MG PO (08:18)
[2025-01-09] MEDS: LIPITOR 80 MG PO (08:18)
[2025-01-09] MEDS: PRADAXA 150 MG PO (08:18)
[2025-01-09] MEDS: PROZAC 40 MG PO (08:18)
[2025-01-09] MEDS: PROTONIX 20 MG PO (08:19)
[2025-01-09] MEDS: COLACE 100 MG PO (08:19)
[2025-01-09] MEDS: FLOMAX 0.4 MG PO (08:19)
[2025-01-09] MEDS: LIORESAL 20 MG PO ×2 (08:19→15:47)
[2025-01-09] MEDS: DEPAKOTE (12 HR RELEASE) 500 MG PO (08:19)
--- NOTE | 2025-01-09 09:25 | W.PN.PUL3 ---
Today's Communication / Plan
-
Doing well, now on RA
No new complaints, sitting in chair, encouraged ambulation
Prednisone taper
Discharge planning per team
We will sign off at this time while he awaits discharge planning, please call with questions
Assessment
-
Patient is a 64-year-old gentleman with history of CVA with residual left hemiparesis who presented to the emergency room from a nursing facility due to persistent cough. Also reported upper respite tract like symptoms including runny nose.
Patient reportedly been feeling sick for about a week and does report a similar sick contact prior to onset of his symptoms. No reported fever, chills or purulent expectoration. No hemoptysis reported. Patient was noted to be mildly hypoxic in
the emergency room and was started on supplemental oxygen. Workup showed a normal WBC count, positive COVID-19 status. In view of hypoxia, patient was started on dexamethasone and remdesivir, pulmonary consultation was requested for further input.
Acute hypoxic respiratory failure
COVID-19 PNA
Other medical diagnoses:
h/o HFrEF, LVEF 40% with Stage I Diastolic dysfunction
- H/o CAD, s/p CABG
- H/o Carotid artery disease
- H/o CVA with resultant left hemiparesis
- Hypertension, hyperlipidemia
- Obesity, BMI 30.5
- History of ITP, resolved
- GERD
- History of restless leg syndrome
- Anxiety/depression
Plan
COVID PNA, high risk features include age, BMI
- Patient is afebrile, WBC count normal
- Remdesivir is initiated x 2 doses, this has not been shown to decrease LOS/mortality/severity -- can likely stop
Continue current dose of dexamethasone/taper at discharge
Initially on 3 L supplemental oxygen, now on RA satting 94%--work of breathing normal.
Continue supplemental O2 as needed, wean as tolerated
Can transition to NRB or HFNC if indicated
Encourage daily proning and OOB
Incentive spirometry
SARS CoV2 testing positive
Isolation per hospital protocol
Anticoagulation: resumed on home pradaxa, history of ITP
Supportive care
Continue to monitor inflammatory markers as indicated
Follow fever curve
CXR reviewed: minor basilar disease
Repeat only as necessary to limit testing/exposures
Prior pulmonary history: none/known- At risk for sleep apnea given BMI, recommend outpatient study
Limit nebulizers, continue HFA as can be reasonably substituted
HF history
Current proBNP 5080
1+ pedal edema noted on exam.
Will give additional dose of Lasix 20 mg IV today. Not on lasix as OP
Might need additional diuresis depending upon clinical course
ECHO in past showing reduced function, could compete updated study
DVT prophylaxis. Chronically anticoagulated with Pradaxa.
PT/OT, IS
Data:
CXR 12/2024: Minor bibasilar opacities, atelectasis versus mild viral pneumonia. Sternotomy wires and mediastinal clips. No pleural effusion or pneumothorax. Stable enlargement of the cardiac silhouette. Chronic degenerative changes of the spine.
ECHO 03/2022: Moderately reduced left ventricular systolic function. Septal and inferior wall hypokinesis. The inferior wall also looks dyskinetic at times. Estimated left ventricular ejection fraction is 40% by visual assessment. Stage I
diastolic dysfunction suggestive of abnormal relaxation. No significant valvular disease. Compared to previous echo on 08/09/2015, the ejection fraction has mildly decreased. The inferior and inferoseptal wall motion abnormalities have worsened.
However, the prior study utilized Definity contrast, which offer a more accurate assessment of wall motion abnormality.
[facility] 05/2014: 1: Overall preserved systolic function with LVEF 55%
2: Severe multivessel CAD as described with patent HUDSON to LAD and occluded SVG to obtuse marginal branch.
3. Medical therapy is the appropriate recommendation given his anatomy and very mild symptomatology. Continue all possible efforts at risk factor modification given the diffuse and severe nature of his vasculopathy
Total time spent on this consultation/encounter __45__ minutes which includes review of history, physical exam, medications, laboratory data, personal review of imaging, extensive review of outpatient records, discussion with care team and
respiratory therapy.
Subjective Data
-
Date of Service:
Date of Service: January 09, 2025
Chief Complaint: Pulmonary Follow Up
Subjective:
No new complaints, stable on RA
Objective Data
Data Reviewed
Vital Signs / I&O / Oxygen:
Vital Signs
Temp Pulse Resp BP Pulse Ox
97.2 F 50 18 118/68 94
01/09/25 07:00 01/09/25 07:00 01/09/25 07:00 01/09/25 07:00 01/09/25 07:00
Intake and Output
01/08/25 01/09/25 01/10/25
06:59 06:59 06:59
Intake Total 480 / 480 480 / 480
Output Total 825 / 825 550 / 550
Balance -345 / -345 -70 / -70
SaO2 94
Nasal Cannula flow liters per 1
minute
Physical Exam
General: Comfortable, Good Appetite and Other (NAD)
HEENT: Normocephalic, Anicteric and Moist Mucous Membranes
Cardiovascular: S1-S2, Regular Rhythm and Peripheral Edema (trace/BL)
Respiratory: Clear and Non-Labored Respirations
GI: Soft, Non Distended and Non Tender
Neurology: Awake, Alert, Oriented and No Motor Deficits
Skin: Warm, Dry and Good Color
Labs/Micro/Reports
Lab Data
01/09/25 05:35
01/09/25 05:35
Microbiology
01/05/25 18:04 Blood/Venous Blood Culture - Preliminary
No Growth in 72 hours- Final report to follow
01/05/25 18:04 Urine Urine Culture - Final
01/06/25 00:37 Nose MRSA Screen - Final
No Methicillin Resistant Staphylococcus aureus isolated.
[2025-01-09 11:00] VITALS: BP 110/63
--- NOTE | 2025-01-09 11:07 | CM ---
Addendum entered by Nina Zuleta 01/09/25 12:07:
Call placed to pt's POA, was unable to reach him and requested he call back to discuss discharge options.
Original Note:
Pt is cleared for discharge to SNF today. Pt does not want to return to [facility], and the only other option he has is [facility]. Pt asked that I call his friend Fanny Marcusnica to ask for her input. CM was unable to reach Fanny via
telephone and unable to leave a voicemail.
--- NOTE | 2025-01-09 11:58 | W.PN.HOSP.TC ---
Addendum entered and electronically signed by Shmuel Clark MD 01/10/25 14:32:
Acute on Chronic HFrEF
Original Note:
Today's Communication/Plan
-
Discharge today
Assessment / Plan
Assessment / Plan
Physical Exam
General: Not in acute distress
HEENT: Moist mucous membranes
Respiratory: Clear to Auscultation Bilaterally
Cardiac: S1/S2 and Regular Rhythm
GI: Soft, Non Tender, Non Distended and Normal Bowel Sounds
Musculoskeletal: No Cyanosis and Other (Trace - 1+ edema LLE.)
Neuro: AAO x 3 and Other (L hemiparesis (chronic and unchanged). No new focal deficits.)
Assessment/Plan
64 y/o male with past medical history significant for L hemiparesis s/p CVA, hypertension and depression, who presented to [facility] room [facility], for evaluation of cough. Patient stated that he has had runny nose and
non-productive cough for about one week prior to presentation. He stated that he was around a friend with similar symptoms prior to onset of his own. At the time of admission, patient denied subjective fevers/chills, shortness of breath, any
gastrointestinal symptoms etc. Patient stated that he has had COVID vaccinations in the past. [place] record showed booster received on 05/02/24.
COVID-19 Pneumonia
Acute Hypoxemic Respiratory Failure secondary to the above
Sepsis secondary to the above
- Patient presented with fever, tachypnea and evidence of life threatening organ dysfunction in the form of acute hypoxemia.
- SARS-CoV-2 positive in the ED and CXR with L > R bibasilar opacities.
- Room air SpO2 in the ED was 87% and at the time of admission, he was on 4 LPM of supplemental O2 with oxygenation around 90%.
- Weaned to room air now.
- With initial significant O2 requirements/sepsis criteria, transition Dexamethasone to Prednisone taper as per pulmonary recommendations. Previously stopped Remdesivir because bradycardia.
- Prednisone taper on discharge
- Supportive care with O2, albuterol MDI, etc.
- Follow proper isolation precautions.
- Follow for clinical improvement.
- Pulmonary evaluation for additional recommendations.
- Does not need outpatient oxygen supplementation
Bradycardia with PVCs
- Happened not too long after Remdesivir course started
- On 01/09/25, I teena consulted on-call manager technical services Dr. Marr and he said since bradycardia is asymptomatic, patient can be further monitored and evaluated for his bradycardia outpatient
- Outpatient follow-up with [facility] cardiology
- If any symptoms or bradycardia, return to the ER right away
ASCVD (CAD status post coronary artery bypass graft, CVA with resultant left hemiparesis, PAD)
History of Carotid Artery Disease
Left Hemiparesis as Late Effect of CVA
- Stable. No new deficits. No chest pain, etc.
- Continue current CV med regimen including Pradaxa.
- Continue Baclofen for spasms.
History of HFrEF
Ischemic Cardiomyopathy
- BNP 5080
- 1+ pedal edema
- IV Lasix given this admission
- Follow-up closely with outpatient manager technical services
GERD
Benign Hypertension
- Continue Imdur and adjust regimen as needed.
Anxiety / Depression
- Stable. Continue current psychotropic med regimen.
History of ITP - RESOLVED
- Platelet counts are normal at present. No sequelae of bleeding, bruising, etc.
History of Restless Legs Syndrome
Dyslipidemia
DVT Prophylaxis: Continue Pradaxa.
Code Status: Full Code
Discussed with nurse.
More than 30 minutes spent in discharge including
Final examination of the patient
Summarizing hospital stay
Instructions for continuing care to all relevant caregivers
Preparation of discharge records, prescriptions, and referral forms
Total time spent (in minutes): 40
Anticipated Discharge: Today
Subjective/Interval History
-
Date of Service: January 09, 2025
Patient was seen and examined. He denied any dizziness, lightheadedness, chest pain, shortness of breath or any other new symptoms or complaints.
Objective Data
-
Labs:
Laboratory Results
01/09/25
05:35
WBC 7.9
Hgb 14.0
Hct 41.8
Plt Count 200
Sodium 135
Potassium 4.8
Chloride 103
Carbon Dioxide 29
BUN 27 H
Creatinine 0.7
Glucose 130 H
Calcium 8.7
Total Bilirubin 0.6
AST 19
ALT 14
Alkaline Phosphatase 48
Vital Signs:
Vital Signs
Temp Pulse Resp BP Pulse Ox
97.5 F 62 17 110/63 94
01/09/25 11:00 01/09/25 11:00 01/09/25 11:00 01/09/25 11:00 01/09/25 11:49
I&O
01/08/25 01/09/25 01/10/25
06:59 06:59 06:59
Intake Total 480 / 480 480 / 480
Output Total 825 / 825 550 / 550
Balance -345 / -345 -70 / -70
--- NOTE | 2025-01-09 13:31 | CM ---
Pt's friend, Fanny, called me back to discuss plans for discharge. CM advised her that Arie has agreed to return to [facility] and arrangements for ambulance transport are in process.
Plan: Discharge to [facility] via ambulance. Pt's friend plans to continue looking into [facility].
[facility] Report: [phone]
[facility]
--- NOTE | 2025-01-09 13:53 | PN.CDI ---
CDI
- -
CDI:
Physician Documentation Request
Admit Date: 01/05/25 22:35
Dear Doctor Amber,
Per ED record, patient present secondary to increased agitation and confusion.Upon arrival, patient is found to be febrile,....Patient does have a cough...'
Patient found to have COVID pneumonia. History includes Ischemic cardiomyopathy.
Patient does not appear to take diuretics as an outpatient.
Last echo at [facility] 03/27/2022 EF 40%.
BNP 01/05 5080 (prior BNP 05/12/23 842)
Hospitalist progress note states '1+ pedal edema'
IV Lasix was given 01/06 and 01/07
Could you please provide a diagnosis that supports the above abnormalities and additional evaluation, monitoring and/or treatment rendered:
congestive heart failure (please specify type and acuity)
fluid volume overload
Other (please specify)
Use of terms such as suspected, likely, concern for, or probable (associated with a specific diagnosis that is being evaluated, monitored, or treated as if it exists) are acceptable and can be coded in the inpatient setting, when documented at the
time of discharge.
Thank you,
Diamond Rivero RN, BSN
CDI Specialist
tiger text
Please use your independent medical judgment in providing your response.
[2025-01-09 15:00] VITALS: BP 138/67
[2025-01-09 19:26] VITALS: BP 116/55
== END 2025-01-09 20:11 | DRG 871 ==
LOC: 3 WEST ACU 22:35
PROVIDERS: ADMITTING PHYSICIAN Hospitalist; ATTENDING PHYSICIAN Hospitalist; CONSULT PHYSICIAN Internal Medicine; EMERGENCY PHYSICIAN Emergency Medicine; FAMILY PHYSICIAN Internal Medicine
DX: A41.9 Sepsis, unspecified organism (principal); I50.23 Acute on chronic systolic (congestive) heart failure; J12.82 Pneumonia due to coronavirus disease 2019; U07.1 COVID-19; J96.01 Acute respiratory failure with hypoxia; N39.0 Urinary tract infection, site not specified; I69.354 Hemiplegia and hemiparesis following cerebral infarction affecting left non-dominant side; I25.10 Atherosclerotic heart disease of native coronary artery without angina pectoris; I11.0 Hypertensive heart disease with heart failure; F41.9 Anxiety disorder, unspecified; F32.A Depression, unspecified; I25.5 Ischemic cardiomyopathy; E66.9 Obesity, unspecified; K21.9 Gastro-esophageal reflux disease without esophagitis; G25.81 Restless legs syndrome; I73.9 Peripheral vascular disease, unspecified; Z68.30 Body mass index [BMI] 30.0-30.9, adult; Z79.899 Other long term (current) drug therapy; Z95.1 Presence of aortocoronary bypass graft; Z95.5 Presence of coronary angioplasty implant and graft; Z79.01 Long term (current) use of anticoagulants
CPT/HCPCS: 71045; 71046; 80053; 81003; 81015; 82248; 83605; 83735; 83880; 85025; 85027; 85610; 85652; 86140; 87040; 87070; 87086; 87502; 87811; 93005; 96374; 97110; 97163; 97530; 99285; J0248

== ENCOUNTER 2025-01-12 12:19 | Emergency (ER) | payer MEDICARE, SELFPAY ==
[2025-01-12 12:23] VITALS: BP 117/74
[2025-01-12 12:25] VITALS: BMI 30.1
--- NOTE | 2025-01-12 12:32 | ED.GENMED ---
History of Present Illness
General
Chief Complaint: Abdominal Symptoms
Time Seen by Provider: 01/12/25 12:24
Nursing documentation reviewed up to this point in time: agreed with
History of Present Illness
History of Present Illness:
64-year-old male referred to the ER from his long-term care facility for evaluation of poor appetite, nausea, 1 loose watery bowel movement this morning along with fatigue. Patient was diagnosed with COVID 4 days ago. He is no longer experiencing
fever. He denies cough or chest pain. He denies abdominal pain but reports feeling generally unwell. Patient is in a long-term care facility status post CVA with residual left hemiparesis. He also has a prior history of VA, hypertension,
hyperlipidemia
Past History
Past History
ED Past Medical History: CAD, CVA (right parietal occipital and 2016), GERD, HTN, Hypercholesterolemia, VA and Other (ITP w/ Thrombus)
ED Past Surgical History: Cardiac (CABG, Stents) and Other (Hernia)
Social History
Tobacco: Non-smoker
Alcohol: None
Personal:
Living: with family
Employment: Not employed
Family History
Family History: Early CAD
Review of Systems
Review of Systems
Allergies reviewed?: Yes
Phy Exam
Physical Exam
Physical Exam:
Patient is awake, alert, appears in no acute distress, head is NCAT, PERRL, EOMI mucous membranes moist, conjunctiva pink, heart regular rate and rhythm without murmurs or ectopy, lungs are clear to auscultation without wheezes rales or rhonchi, no
JVD, abdomen is soft and nontender on palpation, extremities without edema, GCS is 15, left hand held in a fist, left lower extremity with atrophy, status post multiple toe amputation, 2+ DP pulses present symmetric bilateral feet
Course
Orders/Labs/Results
Orders:
Orders
01/12/25 12:32
0.9% Sodium Chloride 1000 ml [Nss] 1,000 ml IV BOLUS
CR Chest Portable - 1 View Urgent
Comment:
Reason For Exam: cough
Reason Study Needs to be Portable: Unable to Transport
If Reason is Other, explain: covid positive
01/12/25 12:36
Complete Blood Count/With Diff Urgent
Comprehensive Metabolic Panel Urgent
Lipase Urgent
01/12/25 12:39
Lorazepam [Ativan] 1 mg PO NOW STA
01/12/25 15:48
Case Management Consult ONCE
Case Management Consult: Discharge Planning
Abnormal Lab Results
01/12/25
12:36
WBC 14.3 H 10^3/uL
(4.8-10.8)
Abs Immat Gran (auto) 0.3 H 10^3/uL
(0-0.05)
Absolute Neuts (auto) 9.8 H 10^3/uL
(1.4-6.5)
Absolute Monos (auto) 1.2 H 10^3/uL
(0.1-0.6)
Immature Gran % 2.0 H %
(0-0.5)
Lymphocytes % 19.9 L %
(20.5-51.1)
01/12/25 12:36
01/12/25 12:36
Vital Signs
Initial and Last Documented VS:
Initial Vital Signs
Temp Pulse Resp Pulse Ox
98 F 72 16 95
01/12/25 12:22 01/12/25 12:22 01/12/25 12:22 01/12/25 12:22
Last Documented Vital Signs
Temp Pulse Resp BP Pulse Ox
98 F 56 17 104/70 97
01/12/25 12:22 01/12/25 13:00 01/12/25 13:00 01/12/25 13:00 01/12/25 12:46
MDM/Problems Addressed
Differential Diagnosis Includes:
Differential diagnosis to consider but not limited to COVID, electrolyte dyscrasia, dehydration, pneumonia along with other etiologies considered
Chronic conditions affecting care:
Poor mobility, age greater than 60, hypertension, hyperlipidemia, prior CVA, CAD
*Radiology
Radiology exam reviewed: preliminary read by ED provider (I independently viewed and interpreted portable chest x-ray showing clear lungs, improvement in area of linear atelectasis R mid lung seen on x-ray from 01/07/2025)
*Pulse Oximetry
SaO2: 95
Oxygen Mode of Delivery: Room air
Patient hypoxic: no
*Critical Care Note
Total Time (30-74mins, 75-104mins- exclusive of procedures): Not Applicable
Update Note
Update Note:
1234: Will give IV fluids while awaiting test results. Patient agrees with plan at current
1239: Patient feeling anxious and requesting a 'chill pill'. Will give 1 dose of Ativan
Pt resting in no distress, eating without difficulty I reviewed very reassuring workup with the patient along with plan [facility]. Patient is refusing to go back to his facility. Will
place consultation for social work assessment.
Patient was evaluated by case management and is now willing to return to his facility. Discharge paperwork provided.
ED Attending Note
-
Portions of this chart may have been created with voice recognition software.� Occasional wrong word or��sound alike� substitutions may have occurred due to the inherent limitations of voice recognition software.
Discharge Plan
Departure
Patient Disposition: Home (Routine Discharge)
Date of Disposition: 01/12/25
Time of Disposition: 16:06
Patient with high blood pressure during this ER visit?: No
Discharge Problem:
COVID-19, Fatigue, Unable to care for self
Instructions: COVID-19 in adults (DC)
Prescriptions:
No Action
fluoxetine 40 mg Capsule
40 mg PO BID
divalproex 500 mg Tablet,Delayed Release (Dr/Ec)
500 mg PO BID
isosorbide mononitrate 60 mg Tablet Extended Release 24 Hr
60 mg PO DAILY
dabigatran etexilate [Pradaxa] 150 mg Capsule
150 mg PO BID
baclofen 20 mg tablet
20 mg PO TID
acetaminophen 325 mg Tablet
650 mg PO Q4HPRN PRN (Reason: Mild Pain) Qty: 30 0RF
tamsulosin 0.4 mg Capsule
0.4 mg PO DAILY Qty: 0 0RF
oxycodone 5 mg tablet
5 mg PO Q8HPRN PRN (Reason: severe pains)
pantoprazole [Protonix] 20 mg Tablet,Delayed Release (Dr/Ec)
20 mg PO BID
bisacodyl [Dulcolax (bisacodyl)] 10 mg Suppository
10 mg HI DAILYPRN PRN (Reason: if no bm aftr mom)
Fleet Enema 19-7 gram/118 mL Enema
118 ml HI DAILYPRN PRN (Reason: if no bm aftr dulcolax)
prednisone 10 mg tablet
10 mg PO DIRECTED
Rx Instructions:
Starting 01/10/25: 30 mg x1 day, then 20 mg x1 day, then 10 mg x1 day
magnesium hydroxide [Milk of Magnesia] 400 mg/5 mL suspension
30 ml PO DAILYPRN PRN (Reason: if no bm by 3rd day)
docusate sodium 100 mg capsule
100 mg PO BID
atorvastatin 80 MG tablet
80 mg PO QPM
Referrals:
UNKNOWN - PT DOES,NOT KNOW [Family Provider]
Activity Restrictions/Additional Instructions:
Continue your current medications. Encourage fluids. Please follow-up with your primary care physician in 1 week. Please speak with social work at your current living facility in order to help coordinate possible transfer of care to a different
intermediate facility.
Interventions
Interventions:
*Risk Screen - Suicide Last Done: 01/12/25 12:24
*General Assessment Last Done: 01/12/25 12:24
*Neglect/Abuse Screening Last Done: 01/12/25 12:25
*ED- Fall Risk Assessment Last Done: 01/12/25 13:12
*ED COVID-19 Vaccine History Last Done: 01/12/25 12:25
*ED Influenza Vaccine History Last Done: 01/12/25 12:25
SB-Tzsupn-Morcexurzz Assessment Last Done: 01/12/25 12:46
ED- Cardiac Assessment Last Done: 01/12/25 12:46
ED- Neurological Assessment Last Done: 01/12/25 12:46
ED- Pulmonary Assessment Last Done: 01/12/25 12:46
Discharge Date and Time
Print Language: BULGARIAN
[2025-01-12] MEDS: NSS 1000 IV (12:35)
[2025-01-12] MEDS: ATIVAN 1 MG PO (12:44)
[2025-01-12 12:49] LABS: Hematocrit 46.8 % (39.0-52.0); Hemoglobin 15.8 g/dL (13.0-18.0); Mean Corp Hgb Conc. 33.8 g/dL (33.0-37.0); Mean Corpuscular Volume 83.1 fL (80.0-94.0); Nucleated Red Blood Cells % 0 % (-); Platelet Count 289 10^3/uL (130-400); Red Cell Dist. Width 14.4 % (11.5-14.5)
[2025-01-12 13:00] VITALS: BP 104/70
[2025-01-12 13:07] LABS: ALT (SGPT) 18 U/L (0-50); AST (SGOT) 22 U/L (17-59); Albumin 3.9 g/dl (3.5-5.0); Alkaline Phosphatase 70 U/L (38-126); Blood Urea Nitrogen 16 mg/dl (9-20); Calcium 9.2 mg/dl (8.4-10.2); Carbon Dioxide 27 mmol/L (22-30); Chloride 102 mmol/L (98-107); Estimated Creatinine Clearance 101 ml/min; Glucose 97 mg/dl (70-99); Lipase 150 U/L (23-300); Potassium 3.9 mmol/L (3.5-5.1); Sodium 138 mmol/L (135-145); Total Protein 7.0 g/dl (6.3-8.2); eGFR > 60.00
[2025-01-12 14:01] VITALS: BP 118/69
[2025-01-12 15:00] VITALS: BP 128/93
[2025-01-12 16:00] VITALS: BP 112/91
--- NOTE | 2025-01-12 16:12 | CM ---
CM reviewed chart, consult received for discharge planning.
CM spoke with liaison, Nayana, at [facility], confirmed patient is LTC.
Patient seen bedside, Covid +
CM discussed patient is stable for d/c, no medical reason to admit patient.
Patient aware option is to return to [facility] or will be financially responsible for hospital stay, patient aware.
CM will set up ambulance transport, [facility] aware of return to facility.
Plan; return to [facility] LTC, ambulance transport
[facility] Report: [phone]
[facility]
== END 2025-01-12 18:00 | disposition home or self-care (01) ==
LOC: EMR 12:19
PROVIDERS: EMERGENCY PHYSICIAN Emergency Medicine
DX: U07.1 COVID-19 (principal); R53.83 Other fatigue; R11.0 Nausea; R19.7 Diarrhea, unspecified; I25.10 Atherosclerotic heart disease of native coronary artery without angina pectoris; K21.9 Gastro-esophageal reflux disease without esophagitis; I11.9 Hypertensive heart disease without heart failure; I25.2 Old myocardial infarction; E78.00 Pure hypercholesterolemia, unspecified; D69.3 Immune thrombocytopenic purpura; I69.354 Hemiplegia and hemiparesis following cerebral infarction affecting left non-dominant side; Z82.49 Family history of ischemic heart disease and other diseases of the circulatory system; Z95.1 Presence of aortocoronary bypass graft; Z95.5 Presence of coronary angioplasty implant and graft
CPT/HCPCS: 99283; 71045; 80053; 83690; 85025; 87045; 87046; 87324; 87427; 87449

== ENCOUNTER 2025-01-14 10:01 | Inpatient (IN) | payer MEDICARE, SELFPAY ==
[2025-01-13 23:38] VITALS: BP 138/75
[2025-01-13 23:57] VITALS: BMI 32.3
[2025-01-14] VITALS (7 sets, daily range): BP systolic 109–134; BP diastolic 69–99
[2025-01-14] MEDS: ATIVAN 1 MG IV ×3 (02:05→05:37)
[2025-01-14] MEDS: HALDOL 1 MG IV ×2 (02:26→02:58)
[2025-01-14 03:07] LABS: Hematocrit 42.6 % (39.0-52.0); Hemoglobin 13.9 g/dL (13.0-18.0); Mean Corp Hgb Conc. 32.6 g/dL (33.0-37.0); Mean Corpuscular Volume 87.1 fL (80.0-94.0); Nucleated Red Blood Cells % 0 % (-); Platelet Count 262 10^3/uL (130-400); Red Cell Dist. Width 14.6 % (11.5-14.5)
[2025-01-14 03:10] LABS: ALT (SGPT) 15 U/L (0-50); AST (SGOT) 23 U/L (17-59); Albumin 3.3 g/dl (3.5-5.0); Alkaline Phosphatase 58 U/L (38-126); Blood Urea Nitrogen 21 mg/dl (9-20); Calcium 8.7 mg/dl (8.4-10.2); Carbon Dioxide 28 mmol/L (22-30); Chloride 105 mmol/L (98-107); Estimated Creatinine Clearance 102 ml/min; Glucose 75 mg/dl (70-99); Potassium 4.2 mmol/L (3.5-5.1); Sodium 140 mmol/L (135-145); Total Protein 6.0 g/dl (6.3-8.2); eGFR > 60.00
--- NOTE | 2025-01-14 05:20 | ED.GENMED ---
History of Present Illness
General
Chief Complaint: Sleep Disturbances
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
Exam Limitations: clinical condition and altered mental status
Time Seen by Provider: 01/14/25 03:09
Nursing documentation reviewed up to this point in time: agreed with
History of Present Illness
History of Present Illness:
This is a 64-year-old gentleman who has significant past medical history including CVA with left hemiparesis, CAD status post CABG, carotid artery disease, CHF, prior history of ITP which has resolved. Lumbar disc disease. History of
anxiety/depression. He is a long-term resident of a local retirement.
Recently hospitalized here January 05 until January 09 for treatment of acute hypoxemic respiratory failure related to COVID-19 pneumonia.
He presented to this ED 24 hours ago with complaints of poor appetite, nausea, 1 loose bowel movement as well as fatigue. He was also complaining of some anxiety and was given a dose of Ativan orally. Unremarkable ED evaluation including
laboratory studies, chest x-ray. He was discharged back to the retirement.
He returns via EMS from retirement due to increased agitation, behavioral disturbance and difficulty sleeping.
There has been no reported fever, no shortness of breath. No recent falls or injuries. He denies pain but remains significantly agitated, intermittently yelling and argumentative.
Prior to my evaluation he was given an IV dose of Ativan without improvement, in fact may be more anxious/agitated.
Past History
Past History
ED Past Medical History: CAD, CVA (right parietal occipital and 2016), GERD, HTN, Hypercholesterolemia, [place], Psychiatric (Anxiety/depression), Other (Lumbar disc disease) and Other (ITP w/ Thrombus-resolved)
ED Past Surgical History: Cardiac (CABG, Stents) and Other (Hernia)
Social History
Tobacco: Non-smoker
Alcohol: None
Personal: Single
Living: retirement
Employment: Disabled
Family History
Family History: Early CAD
Phy Exam
Physical Exam
Physical Exam:
GENERAL: 64-year-old gentleman appears somewhat older than stated age, awake and alert, moderately anxious, agitated, intermittently yelling and argumentative.
EYE: pupils equal and reactive. anicteric. The head is normocephalic, atraumatic.
NECK: Supple, nontender, no meningismus, no significant adenopathy.
ENT: posterior pharynx is clear, oral mucosa is moist. No rhinorrhea.
CARDIAC: Regular rate and rhythm. no murmur.
LUNGS: Clear breath sounds bilaterally, no acute respiratory distress, no wheezes/rales/rhonchi
ABDOMEN: Soft, nondistended, without focal tenderness
NEUROLOGICAL: Alert and oriented x3, anxious and agitated, left hemiparesis, stable and unchanged.
SKIN: Warm and dry, normal color, skin intact. No rash.
MUSCULOSKELETAL: No C/C/E. peripheral pulses are full and equal b/l. No palpable tenderness.
PSYCH: Anxious, agitated, argumentative.
Course
Orders/Labs/Results
Orders:
Orders
01/14/25 02:03
Lorazepam [Ativan] 2 mg .ROUTE .STK-MED ONE
01/14/25 02:04
Lorazepam [Ativan] 1 mg IV NOW STA
01/14/25 02:23
Haloperidol Lactate [Haldol] 1 mg IV NOW STA
01/14/25 02:49
CBC/With Diff [Complete Blood Count/With Diff] Urgent
Comprehensive Metabolic Panel Urgent
01/14/25 02:55
Haloperidol Lactate [Haldol] 5 mg .ROUTE .STK-MED ONE
01/14/25 02:58
Haloperidol Lactate [Haldol] 1 mg IV NOW STA
01/14/25 03:15
Restraints - Non Violent As Directed
Justification-Patient:: 1-Attempts to remove tube
Restraint Type-: Soft Limb-4 point/4 rails
Apply From (date): 01/14/25
Apply from (time): 03:15
Remove (date): 01/15/25
Remove (time): 23:59
01/14/25 03:23
Risperidone Disintegrating [Risperdal M-Tab (Orally Disintegrating)] 1 mg PO NOW STA
01/14/25 04:51
Lorazepam [Ativan] 1 mg IV NOW STA
01/14/25 05:32
Lorazepam [Ativan] 1 mg IV NOW STA
Abnormal Lab Results
01/14/25
02:49
WBC 13.0 H 10^3/uL
(4.8-10.8)
MCHC 32.6 L g/dL
(33.0-37.0)
RDW 14.6 H %
(11.5-14.5)
Abs Immat Gran (auto) 0.3 H 10^3/uL
(0-0.05)
Absolute Neuts (auto) 7.7 H 10^3/uL
(1.4-6.5)
Absolute Monos (auto) 1.3 H 10^3/uL
(0.1-0.6)
Immature Gran % 2.6 H %
(0-0.5)
Monocytes % 10.2 H %
(1.7-9.3)
BUN 21 H mg/dl
(9-20)
Total Protein 6.0 L g/dl
(6.3-8.2)
Albumin 3.3 L g/dl
(3.5-5.0)
01/14/25 02:49
01/14/25 02:49
Vital Signs
Initial and Last Documented VS:
Initial Vital Signs
Temp Pulse Resp BP Pulse Ox
98.7 F 76 23 138/75 99
01/13/25 23:38 01/13/25 23:38 01/13/25 23:38 01/13/25 23:38 01/13/25 23:38
Last Documented Vital Signs
Temp Pulse Resp BP Pulse Ox
98.7 F 94 21 120/99 93
01/14/25 00:00 01/14/25 02:45 01/14/25 02:45 01/14/25 02:37 01/14/25 05:21
MDM/Problems Addressed
Differential Diagnosis Includes:
Acute delirium:
Concern for adverse medication reaction
Electrolyte abnormality
Post COVID-19 related agitation
Acute psychosis
Sepsis
MDM/Problems Addressed:
Acute delirium/agitation
Despite several doses of anxiolytics, antipsychotics patient remains agitated, belligerent, argumentative and attempts to swing at the staff, attempts to get out of bed thus remains a danger to himself and others.
Not amenable to verbal redirection.
Soft restraints have been applied.
He remains afebrile. Vital signs within normal limits.
No evidence of trauma nor history of trauma.
Labs show mildly elevated white blood cell count but improved from yesterday. All other labs within normal limits.
Due to continued agitation we will continue with anxiolytics and will plan to admit to hospitalist service for continued care and will plan for psychiatry evaluation.
To consider CT of the head but there is no evidence of meningismus, no evidence of trauma, no new neurologic deficit thus at this point CT I believe will not be revealing.
Chronic conditions affecting care: HTN, CAD, Neurological disorder and Psychiatric illness
Acute Exacerbation and/or Progression of Chronic Illness: Psychiatric illness
*Pulse Oximetry
SaO2: 93
Oxygen Mode of Delivery: Room air
Patient hypoxic: no
*Hoop Cutter Interpretation
Rate: normal
Interpretation: normal
Rhythm: sinus
*Critical Care Note
Total Time (30-74mins, 75-104mins- exclusive of procedures): 40
comment:
Critical care statement: A total of 40 minutes of critical care time was provided for this patient. This includes management of unstable vital signs, evaluation of the patient at bedside, reviewing the patient's pertinent medical records, discussion
with consultants, review of old EKGs and review of pertinent medical records. This time with separate from time utilized to perform the aforementioned documented procedures
Update Note
Update Note:
05:50
Despite several doses of anxiolytic, antipsychotic patient remains significantly agitated, attempting to swing at staff, attempting to climb out of bed requiring 4-point soft restraints.
Unfortunately, with restraint use this has fueled his agitation. Nonetheless, required for patient as well as staff safety.
Although concern for increased agitation related to benzodiazepines, IV Haldol thus far has not been effective.
Patient refused oral medications.
Thus trial of IV Ativan and due to significant agitation, acute delirium will require acute hospitalization for further treatment along with psychiatry evaluation.
ED Attending Note
-
Portions of this chart may have been created with voice recognition software.� Occasional wrong word or��sound alike� substitutions may have occurred due to the inherent limitations of voice recognition software.
Discharge Plan
Departure
Patient Disposition: Admit
Date of Disposition: 01/14/25
Time of Disposition: 05:49
Admit to: Telemetry
Admit to doctor: Poly
Presentation/result/management discussed w/ accepting MD/DO: Hospitalist
Discharge Problem:
Acute delirium
Prescriptions:
No Action
fluoxetine 40 mg Capsule
40 mg PO BID
divalproex 500 mg Tablet,Delayed Release (Dr/Ec)
500 mg PO BID
isosorbide mononitrate 60 mg Tablet Extended Release 24 Hr
60 mg PO DAILY
dabigatran etexilate [Pradaxa] 150 mg Capsule
150 mg PO BID
baclofen 20 mg tablet
20 mg PO TID
acetaminophen 325 mg Tablet
650 mg PO Q4HPRN PRN (Reason: Mild Pain) Qty: 30 0RF
tamsulosin 0.4 mg Capsule
0.4 mg PO DAILY Qty: 0 0RF
oxycodone 5 mg tablet
5 mg PO Q8HPRN PRN (Reason: severe pains)
pantoprazole [Protonix] 20 mg Tablet,Delayed Release (Dr/Ec)
20 mg PO BID
bisacodyl [Dulcolax (bisacodyl)] 10 mg Suppository
10 mg MD DAILYPRN PRN (Reason: if no bm aftr mom)
Fleet Enema 19-7 gram/118 mL Enema
118 ml MD DAILYPRN PRN (Reason: if no bm aftr dulcolax)
prednisone 10 mg tablet
10 mg PO DIRECTED
Rx Instructions:
Starting 01/10/25: 30 mg x1 day, then 20 mg x1 day, then 10 mg x1 day
magnesium hydroxide [Milk of Magnesia] 400 mg/5 mL suspension
30 ml PO DAILYPRN PRN (Reason: if no bm by 3rd day)
docusate sodium 100 mg capsule
100 mg PO BID
atorvastatin 80 MG tablet
80 mg PO QPM
Referrals:
Isai Donahue I., [Family Provider, Internal Medicine]
Interventions
Interventions:
*Risk Screen - Suicide Last Done: 01/14/25 00:01
*General Assessment Last Done: 01/14/25 00:01
*Neglect/Abuse Screening Last Done: 01/14/25 00:01
*ED- Fall Risk Assessment Last Done: 01/14/25 00:01
*ED COVID-19 Vaccine History Last Done: 01/14/25 00:01
*ED Influenza Vaccine History Last Done: 01/14/25 00:01
ED-Suicide Risk Assessment Last Done: 01/14/25 00:01
ED- Neurological Assessment Last Done: 01/14/25 00:01
ED-Psychological Assessment Last Done: 01/14/25 00:01
Discharge Date and Time
Print Language: OMANI
--- NOTE | 2025-01-14 07:34 | HPS.HSE ---
Addendum entered and electronically signed by Shmuel Clark MD 01/14/25 20:11:
I have personally supervised the history, physical exam, medical decision-making, and care plan for this patient in conjunction with the resident. I have reviewed and discussed the resident's documentation and findings. I confirm that this note
accurately reflects my supervision and input in the care of this patient.
History of Presenting Illness
64 y/o male with past medical history significant for left hemiparesis status post CVA with chronic left hemiparesis, CAD status post CABG, carotid artery disease, HFmrEF and ITP (resolved), presented to the ER by EMS from [facility] for
evaluation of his behavioral disturbance, difficulty sleeping and episodes of agitation. He was recently hospitalized here at [facility] for COVID (s/p 3-4 doses of Remdesivir, Steroids). He was seen in the ER again on 01/12/2025 for poor appetite, and
loose bowel-unremarkable ED evaluation, patient was given a dose of Ativan for anxiety, and was discharged back to [facility]. Patient returns back via EMS from [facility] after staff reported that he was very belligerent, agitated, not sleeping
and was flinging objects at the staff. No falls/trauma.
Vital Signs
Afebrile
Heart rate is normal
Blood pressure acceptable, not hypotensive or very hypertensive
RR okay
Saturating oxygen in the 90s on room air
Physical Exam
General: Other (Anxious and agitated, in 4-point restraints.)
HEENT: Normocephalic and Atraumatic
Respiratory: Clear to Auscultation Bilaterally
Cardiac: S1/S2 and Regular Rhythm
GI: Soft, Non Tender, Non Distended and Normal Bowel Sounds
Musculoskeletal: Other (Amputated toes on the left side)
Skin: Warm and Dry
Neuro: Awake, Alert and Other (AO x 2 -- person and place, chronic left hemiparesis). Responds to questions appropriately, says he wants to return to SNF. Follows commands, appears neurologically intact, moving all extremities, moving his head and
bending his neck, makes attempts to get up out of bed
Psych: Agitated, Anxious and Other
Assessment/Plan
Agitation/Restlessness, suspected from Recent COVID, Dexamethasone and Prednisone
-Stop Prednisone, no need for further taper
-Paradoxical response from Ativan -- became more agitated
-Trazodone was stopped last admission in setting of suspected Remdesivir-related bradycardia as well as BBB and LAFB on EKG -- reports of patient being unable to sleep now
-Trazodone withdrawal? Psychiatry consulted, thinks it is unlikely
-Valium, appreciate psychiatry input given issues above
-Restraints ordered
-Quite prolonged QTc -- will need to avoid antipsychotics
Prolonged QTc
-QTc 513 on 01/14/25
-Avoid antipsychotics
-Will just have stick with Valium; patient also had more agitation after Ativan was given
Leukocytosis
Microscopic Hematuria
-CXR with no pneumonia, UA is not indicative of UTI
-Suspected from steroids. Last admission pulm mentioned steroid taper, but I don't think he needs anymore steroids
-Stop Prednisone which is also causing patient to be agitated most likely
Recent COVID-19 Pneumonia hospitalization 01/05/25 to 01/09/25 at [facility] with associated acute Hypoxemic Respiratory Failure secondary to the above
- Patient remains on room air this admission
- No further Prednisone taper (from last admission) needed
- Supportive care with O2, albuterol MDI, etc.
- Follow proper isolation precautions.
Recent Bradycardia with PVCs -- Suspected from Remdesivir
RBBB
- Happened not too long after Remdesivir course started
- On 01/09/25, I teena consulted on-call automobile detailer Dr. Marr and he said since bradycardia is asymptomatic, patient can be further monitored and evaluated for his bradycardia outpatient
- Outpatient follow-up with [facility] cardiology
- Trazodone was stopped last admission given EKG findings with BBB and the bradycardia patient had with Remdesivir
ASCVD (CAD status post coronary artery bypass graft, CVA with resultant left hemiparesis, PAD)
History of Carotid Artery Disease
Left Hemiparesis as Late Effect of CVA
- Stable. No new deficits. No chest pain, etc.
- Continue current CV med regimen including Pradaxa.
- Continue Baclofen for spasms.
History of HFrEF
Ischemic Cardiomyopathy
- Last admission BNP 5080
- Although seems less likely check proBNP to make sure no CHF contributing to patient's symptoms
- 1+ pedal edema
GERD
-Continue Protonix
Benign Hypertension
- Continue Imdur and adjust regimen as needed.
Anxiety / Depression
- Stable. Continue current psychotropic med regimen.
History of ITP - RESOLVED
- Platelet counts are normal at present. No sequelae of bleeding, bruising, etc.
History of Restless Legs Syndrome
Dyslipidemia
DVT Prophylaxis: Continue Pradaxa.
Code Status: Full Code
Original Note:
Family Physician
-
Family Physician: Isai Donahue
Chief Complaint
-
Agitation
History of Present Illness
64-year-old male presented to the ER by EMS from [facility] for evaluation of his behavioral disturbance, difficulty sleeping and episodes of agitation. He has a past medical history significant for CVA with left hemiparesis, CAD s/p CABG,
HFmrEF, hypertension, hyperlipidemia, history of ITP (resolved), GERD, RLS, anxiety/depression. He he had a recent hospital admission for COVID, DOD�01/09/2025 (s/p 2 doses of remdesivir, steroids). He was seen in the ER again on 01/12/2025 for
poor appetite, and loose bowel-unremarkable ED evaluation, patient was given a dose of Ativan for anxiety, and was discharged back to [facility].
Patient returns back via EMS from [facility] after staff reported that he was very belligerent, agitated, not sleeping and was flinging objects at the staff. No falls/trauma.
Patient remains anxious and agitated during my encounter, states that he does not want to be in restraints. He does not want to be seen by anyone here, and he would like to go to [facility]. He is responding appropriately to the questions
asked, remains alert and oriented to place, person.
ED course�vitals stable, afebrile. Elevated white count at 13, BUN 21, creatinine�0.8. Chest x-ray negative for PNA. Patient received 3 doses of Ativan and 1 dose of Haldol, risperidone oral was also given but the patient spit it out. Patient is
in soft restraints. Nursing reports that he pulled his IV line with his teeth earlier.
Medical History
Past Medical History
Past Medical History: Reports Other (CVA with left hemiparesis, CAD s/p CABG, HFmrEF, hypertension, hyperlipidemia, history of ITP (resolved), GERD, RLS, anxiety/depression)
Additional Past Medical History:
CVA with left hemiparesis, CAD s/p CABG, HFmrEF, hypertension, hyperlipidemia, history of ITP (resolved), GERD, RLS, anxiety/depression
Past Surgical History: Reports Other (CABG, stents, hernia repair, toe amputation)
Additional Past Surgical History:
CABG, stents, hernia repair, toe amputation
Social History
Tobacco: Non-smoker
Alcohol: None
Drug: None
Personal: Single
Living: [facility]
Employment: Disabled
Family History
Family History: CAD
Allergies / Home Medications
Allergies reflects when Allergies were last updated in [facility].
Home Medications with original date entered in [facility]
Allergy/Medication List:
Allergies
Allergy/AdvReac Type Severity Reaction Status Date / Time
No Known Allergies Allergy Verified 01/12/25 13:16
Home Medications
atorvastatin 80 mg tablet 80 mg PO QPM High Cholesterol 09/07/15
dabigatran etexilate 150 mg capsule (Pradaxa) 150 mg PO BID Blood Clot Prevention/Tx 03/30/24
divalproex 500 mg tablet,delayed release 500 mg PO BID Neurological Condition 03/30/24
fluoxetine 40 mg capsule 40 mg PO BID depression/anxiety 03/30/24
isosorbide mononitrate 60 mg tablet,extended release 24 hr 60 mg PO DAILY Heart Disease/Condition 03/30/24
baclofen 20 mg tablet 20 mg PO TID spasm 10/07/24
acetaminophen 325 mg tablet 650 mg (2 x 325 mg) PO Q4HPRN PRN Mild Pain #30 tabs 10/10/24
tamsulosin 0.4 mg capsule 0.4 mg PO DAILY #0 caps 10/10/24
oxycodone 5 mg tablet 5 mg PO Q8HPRN PRN severe pains 01/05/25
bisacodyl 10 mg rectal suppository (Dulcolax (bisacodyl)) 10 mg NH DAILYPRN PRN if no bm aftr mom 01/12/25
docusate sodium 100 mg capsule 100 mg PO BID Constipation 01/12/25
magnesium hydroxide 400 mg/5 mL oral suspension (Milk of Magnesia) 30 ml PO DAILYPRN PRN if no bm by 3rd day 01/12/25
pantoprazole 20 mg tablet,delayed release (Protonix) 20 mg PO BID 01/12/25
prednisone 10 mg tablet 10 mg PO DIRECTED 01/12/25
sodium phosphates 19 gram-7 gram/118 mL enema (Fleet Enema) 118 ml NH DAILYPRN PRN if no bm aftr dulcolax 01/12/25
Review of Systems
-
A 12 point ROS was completed and negative except as noted: Yes
Physical Exam
Vital Signs
Vital Signs
Temp Pulse Resp BP Pulse Ox
98.7 F 94 21 120/99 93
01/14/25 00:00 01/14/25 02:45 01/14/25 02:45 01/14/25 02:37 01/14/25 05:21
Physical Exam
General: Other (Anxious and agitated, in 4-point restraints.)
HEENT: NormoCephalic and Atraumatic
Respiratory: Clear
Cardiac: S1/S2 and Regular Rhythm
GI: Soft, Non Tender, Non Distended and Normal Bowel Sounds
Musculoskeletal: Other (Amputated toes on the left side)
Skin: Warm and Dry
Neuro: Awake, Alert and Other (AO x 2, left hemiparesis)
Psych: Agitated, Anxious and Other
Laboratory Results
-
01/14/25 02:49
01/14/25 02:49
Laboratory Results
Total Bilirubin 0.8 mg/dl (0.2-1.3) 01/14/25 02:49
AST 23 U/L (17-59) 01/14/25 02:49
ALT 15 U/L (0-50) 01/14/25 02:49
Alkaline Phosphatase 58 U/L (38-126) 01/14/25 02:49
Impression/Plan
-
IMPRESSION:
64-year-old presenting with agitation and behavioral disturbances. Recent hospital admission for hypoxemic respiratory failure secondary to COVID-pneumonia, s/p 2 doses of remdesivir and steroids.
PLAN:
#Acute psychosis
#Anxiety
#Delirium
Patient afebrile, white count at 13 (trending down from his prior visit), stable vitals.
Labs unremarkable, chest x-ray with no evidence of pneumonia.
Etiology likely due to medication induced/polypharmacy�patient was on steroids for COVID pneumonia / trazodone withdrawal (discontinued at his prior admission for bradycardia)/patient on home fluoxetine for anxiety
No prior history of dementia
S/p Ativan, haloperidol, risperidone
Psych consulted
Will hold his home fluoxetine for now.
Continue to monitor a.m. labs�electrolytes, CBC
Will do an EKG for QTc monitoring
Delirium precautions-frequent reorientation.
Continue 4 point soft restraint
Appreciate psych recs
#History of CVA
Residual left hemiparesis
No new deficits
Continue Pradaxa, atorvastatin
Continue baclofen for spasms
#CAD s/p CABG
Continue Imdur, statin
#BPH
Continue tamsulosin
#Hypertension
Continue Imdur
#HFmrEF
Patient is euvolemic
#Anxiety/depression
Will hold fluoxetine for now
#History of ITP
Stable platelets
Will monitor for now
Diet�low-cholesterol
DVT prophylaxis�Pradaxa
Full code
[2025-01-14] MEDS: DEPAKOTE (12 HR RELEASE) 500 MG PO ×2 (12:46→21:11)
--- NOTE | 2025-01-14 13:02 | PTCARENOTE ---
Addendum entered by Janice Galan RN 01/14/25 14:57:
PRN IV valium ordered per psych, administered by this RN for patient agitation, patient to ordered head CT scan.
Original Note:
Received patient from ED into room 2122 on COVID precautions, positive test 01/05. Patient AAOX2, cooperative with care on admission but confused and forgetful, occasionally agitated, very restless, frequently attempting to get OOB, pulling at tele
monitor and condom catheter. Patient unable to receive benzos per psych d/t prolonged QTC on EKG. B/L wrist and ankle restraints reapplied, MD and psych made aware.
--- NOTE | 2025-01-14 13:02 | CS.PSYCHR ---
Consult Summary - Psychiatry
-
Patient seen by me on 01/14/2025 from 12:17pm-12:35pm
Psychiatry consult for management of agitation in context of altered mental status. 64 yo make admitted 01/14/2025 from [facility] for episodes of agitation, difficulty sleeping, and behavioral disturbance. Patient required IV Ativan and Haldol in
the ER. There was concern that ativan resulted in paradoxical reaction. his qtc today was 512 this morning. Per nursing he was asleep when brought to the floor but was woken during the transfer process and has been significantly restless since
then. Of note, patient was recently hospitalized here for COVID 01/05. At that time his trazodone was discontinued and he was on steroids, last dose was 01/12.
On exam patient is quite restless and fidgeting in the bed. He is able to tell me he is at [facility] but thinks it's the spring. He requires recurrent redirection but does respond
PMH- CVA with left hemiparesis, CAD s/p CABG, HFmrEF, HTN, h/o ITP resolved, GERD, RLS
Social- care from [place]. has POA
Psych history- chart indicates history of anxiety and depression. prescribed prozac 40mg BID and depakote 500mg BID
A/P-64 yo male with altered mental status which could be related to recent COVID/steroids, currently being medically worked up. Change is unlikely secondary to stopping of trazodone. Given prolonged Qtc would avoid antipsychotics. Paradoxical
reaction to Ativan. Might consider trial of an alternate benzo like Valium if needed though no guarantee he won't have a paradoxical reaction to it. Will request home depakote be given now to see if it helps him calm down. Will recheck EKG for Qtc
monitoring. 1:1 once off COVID precautions.
[2025-01-14] MEDS: VALIUM INJECTION 5 MG IV ×2 (13:40→22:00)
--- NOTE | 2025-01-14 15:50 | PTCARENOTE ---
Patient continuing with frequent attempts to get OOB, pulling at lines/tubes, failing attempts to trial off restraints. MD and psych aware. UA ordered per MD, EKG ordered for tomorrow AM per psych.
[2025-01-14 15:55] LABS: Urine Character Slightly Cloudy (Clear)
[2025-01-14] MEDS: LIORESAL 20 MG PO ×2 (15:59→21:11)
[2025-01-14 16:02] LABS: Urine Red Blood Cell 16-20 /HPF (0-2); Urine Squamous Cell 0-2 /LPF (Few)
[2025-01-14 16:03] LABS: Urine White Cell 0-2 /HPF (0-5)
[2025-01-14] MEDS: LIPITOR 80 MG PO (17:25)
[2025-01-14] MEDS: PRADAXA 150 MG PO (21:10)
[2025-01-14] MEDS: MELATONIN 5 MG PO (21:11)
[2025-01-14] MEDS: PROTONIX 20 MG PO (21:11)
[2025-01-14] MEDS: COLACE 100 MG PO (21:11)
[2025-01-14] MEDS: MELATONIN 3 MG PO (21:30)
[2025-01-15] VITALS (7 sets, daily range): BP systolic 100–127; BP diastolic 54–78
--- NOTE | 2025-01-15 01:51 | W.PN.UPDATE ---
Update Note
Progress Note Update
-Reported by the nursing staff, rosa elena listed in the contact as friend came and requested to remove the patient`s restraints.
-Spoke to POA and Daughter/ Gregoria. Per POA ' Rosa Elena is the patient caregiver for years, knows the patient well and okay to speak to her regarding the patient`s condition if needed'
-POA and daughter are concerning about the patient in restraints as well, this sheet writer discussed safety issue and risk of fall with both daughter and POA.
-Daughter/ Gregoria and POA would like the patient to be off the restraints. Discussed with the daughter the meds that patient received for agitation and all questions were answered.
-for the safety issue and avoiding fall concern, per daughter ' will have someone to be with the patient 24hrs'.
-Daughter would like to try dose of Risperdal now as he refused earlier. One time dose of Risperdal 0.25 mg ordered if the patient agree to take.
[2025-01-15] MEDS: RISPERDAL M-TAB (ORALLY DISINTEGRATING) 0.25 MG PO (02:12)
[2025-01-15] MEDS: VALIUM INJECTION 5 MG IV ×3 (04:51→18:26)
--- NOTE | 2025-01-15 05:07 | PTCARENOTE ---
Recieved pt in 4pt restraints. Pt was thrashing in the bed and extremely agitated. Pt was noted to be confused to time and place and calling out. Pt was offered PO fluids and the urinal which he did utilize x1. Pt was given Melatonin as ordered as
well as Valium. Pt was then calmer. Pt's contact Fanny called and asked about pt status which an update was provided via phone. Shortly after, a female visitor was noted at the pt's bedside. When asked if there was anything that staff could do for the
her or the pt, the visitor began aggressively making demands on staff and has continued to be aggressive through out the shift. When asked who she was in relation to the pt she stated 'a friend'. This person was noted to be Fanny Alanis on the pt's
contact list. Soon after, another female visitor appeared at the nurses station and introduced herself as the pt's daughter. A very lengthy conversation was had about the pt's health hx and the family's wishes including no restraints going further.
It was explained that restraints are utilized as a last resort for safety sake. pt's 'friend' insisting she is staying the night. Said person abruptly called out for staff to reposition the pt in bed and upon entry to the room it was noted the pt
was out of all restraints. It was explained that the restraints need to remain in place for pt safety and they were refused by the pt's 'friend'. Nsg supervisor garage called for further guidance. GLAUCOMA SPECIALIST covering called for discussion about care. Pt's POA
called @0100hrs and a msg was left. GLAUCOMA SPECIALIST called the POA who then called this RN. VICKI Farmer stated it was ok to follow advice of the pt's 'friend' Fanny. Pt's 'friend' insistent that he be given more medications for agitation. As this RN was
discussing the pt with the POA the pt's daughter called. Family verbalized willingness to accept responsibility for pt safety and 'friend' will stay the night. GLAUCOMA SPECIALIST was present on the floor and she was given the phone to talk with the pt's daughter.
Pt has been alert and aggressive in tone but easily redirected by the 'friend' thus far. Medicated one more time with Valium as pt was becoming increasingly agitated yelling and shaking the siderails. No s/s of acute distress assessed. Will continue
to monitor.
--- NOTE | 2025-01-15 05:44 | PTCARENOTE ---
Pt's 'friend' left approximately 0525hr. Explained that the restraints would be going back on and she agreed. Pt now sleeping. No s/s of distress assessed.
[2025-01-15 07:48] LABS: Hematocrit 46.1 % (39.0-52.0); Hemoglobin 15.6 g/dL (13.0-18.0); Mean Corp Hgb Conc. 33.8 g/dL (33.0-37.0); Mean Corpuscular Volume 86.7 fL (80.0-94.0); Platelet Count 314 10^3/uL (130-400); Red Cell Dist. Width 14.8 % (11.5-14.5)
[2025-01-15 08:20] LABS: ALT (SGPT) 21 U/L (0-50); AST (SGOT) 71 U/L (17-59); Albumin 4.0 g/dl (3.5-5.0); Alkaline Phosphatase 66 U/L (38-126); Blood Urea Nitrogen 26 mg/dl (9-20); Calcium 9.4 mg/dl (8.4-10.2); Carbon Dioxide 25 mmol/L (22-30); Chloride 104 mmol/L (98-107); Estimated Creatinine Clearance 101 ml/min; Glucose 77 mg/dl (70-99); Magnesium 1.7 mg/dl (1.6-2.3); Potassium 3.5 mmol/L (3.5-5.1); Sodium 137 mmol/L (135-145); Total Protein 7.2 g/dl (6.3-8.2); eGFR > 60.00
[2025-01-15] MEDS: PRADAXA 150 MG PO ×2 (09:22→21:12)
[2025-01-15] MEDS: IMDUR (EXTENDED RELEASE) 60 MG PO (09:22)
[2025-01-15] MEDS: DEPAKOTE (12 HR RELEASE) 500 MG PO ×2 (09:22→21:10)
[2025-01-15] MEDS: PROTONIX 20 MG PO ×2 (09:22→21:10)
[2025-01-15] MEDS: FLOMAX 0.4 MG PO (09:22)
[2025-01-15] MEDS: LIORESAL 20 MG PO ×3 (09:22→21:10)
[2025-01-15] MEDS: COLACE 100 MG PO (09:23)
[2025-01-15] MEDS: KCL 40 MEQ PO (12:19)
--- NOTE | 2025-01-15 12:19 | CM ---
CM following re: discharge planning.
Reviewed pt's chart, met with pt and pt's POA Akash at bedside.
Pt is a 64 year old male, admitted with primary dx of Agitation/Restlessness.
Pt is not a great historian, information obtained from pt's POA Akash. Per Akash pt used to lives in a trailer and around 3 months ago he was placed to [facility] for a short term rehab and now pt is transitioned to a half-way care. per
Akash, Pt has supportive daughter Gregoria and he is requested to add her to contact list and pt has caregiver Fanny and he also requested to add to contact list. Akash stated he is going for a vacation and he is requested to coordinate pt's discharge
plan with daughter Gregoria and caregiver Fanny. Akash stated he will call me back to give daughter Gregoria and caregiver Fanny phone numbers.
Pt's POA stated that pt, his daughter and caregiver Fanny do not want hiom to return back to [facility] and they are shopping around to find a different SNF.
CM spoke to [facility] and she stated that pt does not like to be in [facility] and it is not fear to the pt that we tried to get him back to the place he does not like to be.
D/C plan: preferred SNF or a farmworker chicken farm care. Per pt's POA request, CM coordinating discharge plan with daughter Gregoria and caregiver Fanny.
CM will follow with discharge plan updates as hospitalization progresses
--- NOTE | 2025-01-15 12:22 | W.PN.HOSP.TC ---
Today's Communication/Plan
-
Await psychiatry input
Assessment / Plan
Assessment / Plan
Gen-alert, awake, NAD
HEENT-NC, AT, anicteric, clear oral mm
Neck-supple
CV-reg, no M, +S1/S2
Lungs-clear B/L
Abd-soft, NT, ND
Ext-no edema
Musculoskeletal-no cyanosis, clubbing
Skin-warm and dry
Psych-calm, cooperative
Acute toxic encephalopathy -possibly due to recent use of steroids. Mental status appears to be improving. Psychiatry consulted.
Low suspicion for infection despite mild leukocytosis, this could also be from steroids. Afebrile.
QTc prolongation -QT interval is worsening, 545 ms. Hold further antipsychotics. Potassium noted to be 3.5, magnesium 1.7. Will start oral potassium.
Recent COVID-19 pneumonia
CAD/CABG
History of right MCA stroke, left hemiparesis -details unclear. July 2015 MRI noted. Apparently is on Pradaxa chronically.
Chronic heart failure reduced EF -stable.
Hyperlipidemia
Essential hypertension -stable.
GERD
History of ITP
RLS
Obesity due to excess calories
Full code
Dispo -back to group home when cleared by psychiatry.
Anticipated Discharge: Within 24 hours
Subjective/Interval History
-
Date of Service: January 15, 2025
Patient seen and examined. No complaints.
Objective Data
-
Labs:
Laboratory Results
01/15/25
06:37
WBC 14.7 H
Hgb 15.6
Hct 46.1
Plt Count 314
Sodium 137
Potassium 3.5
Chloride 104
Carbon Dioxide 25
BUN 26 H
Creatinine 0.8
Glucose 77
Calcium 9.4
Total Bilirubin 1.6 H
AST 71 H
ALT 21
Alkaline Phosphatase 66
Vital Signs:
Vital Signs
Temp Pulse Resp BP Pulse Ox
97.9 F 92 18 124/77 95
01/15/25 11:12 01/15/25 07:00 01/15/25 11:12 01/15/25 07:00 01/15/25 11:12
I&O
01/14/25 01/15/25 01/16/25
06:59 06:59 06:59
Intake Total 1440 / 1440 400 / 400
Output Total 350 / 350 100 / 100
Balance 1090 / 1090 300 / 300
Review of Systems
-
History Source: Patient
All other systems: Reviewed and negative
[2025-01-15] MEDS: MIRAPEX 0.25 MG PO (15:28)
[2025-01-15] MEDS: LIPITOR 80 MG PO (17:36)
--- NOTE | 2025-01-15 19:36 | PTCARENOTE ---
End of shift note: pts restraints remove at 0730 this AM. 1 hour worth of pt care provided. pt feed breakfast without issue. pt waxes and wanes with behavior but has been re-directable to some degree, nothing violent, more confused. valium x 2
doses used during this shift and a one time dose of Mirapex 0.25 mg provided as pt was very restless. results varied as, initially s/p valium, pt was drowsey and went to sleep. however, he would wake up restless requiring redirection to get him to
relax not too long after administration. same with Mirapex. pt was assisted into the chair today which he tolerated well staying up for 2hrs 20 mins. pt refused lunch but did eat majority of dinner. pt with minimal voids today, however s/p void
pts bladder scan resulted as 0 mls. no bm. covid precautions dropped today by infection prevention team. POA stopped in earlier in day spoke to CM. Escobedo, on contact list called x 1 for reports in the late afternoon; all above shared. at this time
stamp pt is in bed asleep. bed alarm continuous towel roller villa in reach. bed low, rails up x 3. Report provided to Torrey Bajwa.
--- NOTE | 2025-01-15 19:43 | W.PN.UPDATE ---
Update Note
Progress Note Update
pt seen at noon. has complicated history of multiple CVAs, recent COVID with steroid use, and altered mental status. Has been on risperdal and prozac at [facility] but QTc noted to be prolonged so stoppeed here. Continues outpatient depakote. Has been
intermittantly agitated, pulling out lines, trying to get out of bed, difficult to console. Care complicataed by prolonged QTc ruling out antipsychoitcs. Had apparent paradoxical reaction to ativan in ED. Prior psychiatric history remarkable only
for depression,. According to friend and POTio Bustos, they had spoken last week and pt was his usual self.
Today has been very agitated, required restraint. Another friend Fanny had visited; she had been a paid consumer safety inspector of patient for several years, until his funds ran out and she needed to find another position. She has maintained contact.
At this point will need to increase depakote to therapuetic level as his encephalopathy clears. Would try to limit benzos of any sort as much as possible.
[2025-01-15] MEDS: COLACE PO (20:29)
[2025-01-15] MEDS: MELATONIN 3 MG PO (21:10)
[2025-01-16] VITALS (7 sets, daily range): BP systolic 109–141; BP diastolic 72–90; PULSE 77; O2SAT 95
[2025-01-16] MEDS: VALIUM INJECTION 5 MG IV ×2 (03:10→21:12)
[2025-01-16 07:13] LABS: Hematocrit 44.6 % (39.0-52.0); Hemoglobin 14.7 g/dL (13.0-18.0); Mean Corp Hgb Conc. 33.0 g/dL (33.0-37.0); Mean Corpuscular Volume 85.3 fL (80.0-94.0); Nucleated Red Blood Cells % 0 % (-); Platelet Count 245 10^3/uL (130-400); Red Cell Dist. Width 14.6 % (11.5-14.5)
[2025-01-16 07:20] LABS: ALT (SGPT) 20 U/L (0-50); AST (SGOT) 59 U/L (17-59); Albumin 3.7 g/dl (3.5-5.0); Alkaline Phosphatase 55 U/L (38-126); Blood Urea Nitrogen 26 mg/dl (9-20); Calcium 9.3 mg/dl (8.4-10.2); Carbon Dioxide 28 mmol/L (22-30); Chloride 103 mmol/L (98-107); Estimated Creatinine Clearance 116 ml/min; Glucose 127 mg/dl (70-99); Potassium 3.8 mmol/L (3.5-5.1); Sodium 136 mmol/L (135-145); Total Protein 6.9 g/dl (6.3-8.2); eGFR > 60.00
[2025-01-16] MEDS: LIORESAL 20 MG PO ×3 (09:00→21:12)
[2025-01-16] MEDS: PROTONIX 20 MG PO ×2 (09:00→20:30)
[2025-01-16] MEDS: PRADAXA 150 MG PO ×2 (09:00→20:31)
[2025-01-16] MEDS: DEPAKOTE (12 HR RELEASE) 500 MG PO ×2 (09:01→20:31)
[2025-01-16] MEDS: KCL 20 MEQ PO (09:01)
[2025-01-16] MEDS: COLACE 100 MG PO ×2 (09:01→20:33)
[2025-01-16] MEDS: IMDUR (EXTENDED RELEASE) 60 MG PO (09:01)
[2025-01-16] MEDS: FLOMAX 0.4 MG PO (09:02)
--- NOTE | 2025-01-16 10:49 | W.PN.HOSP.TC ---
Addendum entered and electronically signed by Lloyd Beard DO 01/16/25 16:45:
Updated daughter Gregoria on the phone. All questions answered.
Original Note:
Today's Communication/Plan
-
Discharge planning
Assessment / Plan
Assessment / Plan
Gen-alert, awake, NAD, oriented to hospital, month, date, year
HEENT-NC, AT, anicteric, clear oral mm
Neck-supple
CV-reg, no M, +S1/S2
Lungs-clear B/L
Abd-soft, NT, ND
Ext-no edema
Musculoskeletal-no cyanosis, clubbing
Skin-warm and dry
Psych-calm, cooperative
Acute toxic encephalopathy -possibly due to recent use of steroids. Mental status appears to be improving. Psychiatry consulted.
Low suspicion for infection despite mild leukocytosis, this could also be from steroids. Afebrile. WBC count trending down.
QTc prolongation -QT interval is worsening, 545 ms. Hold further antipsychotics. EKG pending for today. Potassium started for relative hypokalemia, levels improving.
Recent COVID-19 pneumonia -resolved. Not requiring oxygen. Off COVID isolation.
CAD/CABG -stable.
History of right MCA stroke, left hemiparesis -details unclear. July 2015 MRI noted. Apparently is on Pradaxa chronically.
Chronic heart failure reduced EF -stable.
Hyperlipidemia
Essential hypertension -stable.
GERD
History of ITP
RLS
Obesity due to excess calories
Full code
Dispo -POA asking for a new facility. Case management aware. Medically stable for discharge.
Anticipated Discharge: Within 24 hours
Subjective/Interval History
-
Date of Service: January 16, 2025
Patient seen and examined, no complaints.
Objective Data
-
Labs:
Laboratory Results
01/16/25
06:06
WBC 11.0 H
Hgb 14.7
Hct 44.6
Plt Count 245 D
Sodium 136
Potassium 3.8
Chloride 103
Carbon Dioxide 28
BUN 26 H
Creatinine 0.7
Glucose 127 H
Calcium 9.3
Total Bilirubin 1.5 H
AST 59
ALT 20
Alkaline Phosphatase 55
Vital Signs:
Vital Signs
Temp Pulse Resp BP Pulse Ox
97.7 F 71 18 137/78 95
01/16/25 07:20 01/16/25 07:20 01/16/25 07:20 01/16/25 07:20 01/16/25 07:20
I&O
01/15/25 01/16/25 01/17/25
06:59 06:59 06:59
Intake Total 1440 / 1440 760 / 760
Output Total 350 / 350 350 / 350
Balance 1090 / 1090 410 / 410
Review of Systems
-
History Source: Patient
All other systems: Reviewed and negative
--- NOTE | 2025-01-16 11:05 | W.PN.UPDATE ---
Update Note
Progress Note Update
patient seen chart reviewed. case discussed with nursing mr perkins was very poleasant this am. he was calm. answered all of my questions appropriately. he told me about his work life. 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 he currently resides in a nh. he is very unhappy with his care. he does have family who is in contact w him. i suggested to him that they need to advocate for him. he has an appetite. told me his gm always told him that 'an appetite is
a good thing'. did not make any changes in his meds. i did order a depakote level. would not change meds if he continues as he presented this am. if he becomes agitated again i suspect there will be room to increase depakote. he has a prolonted
qtc 545. nursing tells me repeat ecg ordered for today. need to avoid any psych meds which prolong qtc,. psych will sign off.
--- NOTE | 2025-01-16 13:18 | CM ---
Addendum entered by Joyce Pereira 01/16/25 15:43:
CM spoke with patient daughter and she spoke with physician re medical status. CM also updated daughter that facilities that had reviewed patient were declining him at this time. CM spoke with [facility] and liaison indicated they would not be able to
accept. Per Liaison at [facility], [facility] and [place] are also unable to accept patient at this time. CM requested daughter and friend to review options so that additional referrals can be sent. Patient daughter confirmed that the patient's
home was for sale in next 24-48 hours. Patient daughter to call CM back with updated referral options.
Original Note:
Patient seen at bedside on . Patient for discharge per physician. CM called to patient daughter and friend Fanny. Patient friend requested referrals to [facility] and to [facility]. VM left for Liaison at [facility]. CM will continue to follow for
discharge planning needs.
Plan; SNF; pending acceptance
[2025-01-16] MEDS: LIPITOR 80 MG PO (17:22)
[2025-01-16] MEDS: MELATONIN 3 MG PO (21:12)
[2025-01-17] VITALS (7 sets, daily range): BP systolic 99–143; BP diastolic 66–97
[2025-01-17] MEDS: TYLENOL 650 MG PO (02:28)
[2025-01-17] MEDS: VALIUM INJECTION 5 MG IV (05:30)
--- NOTE | 2025-01-17 05:58 | VATNOTE ---
PT WITH 3CM PALPABLE CORD AT SITE OF PREVIOUS IV IN R MAB. SITE APPEARS DOCUMENTED. PCN TO APPLY WARM COMPRESSES. VAT TO MONITOR. PT REPORTS MINIMAL PAIN/DISCOMFORT AT SITE.
[2025-01-17 07:07] LABS: ALT (SGPT) 20 U/L (0-50); AST (SGOT) 43 U/L (17-59); Albumin 3.1 g/dl (3.5-5.0); Alkaline Phosphatase 44 U/L (38-126); Blood Urea Nitrogen 16 mg/dl (9-20); Calcium 8.6 mg/dl (8.4-10.2); Carbon Dioxide 33 mmol/L (22-30); Chloride 101 mmol/L (98-107); Estimated Creatinine Clearance 116 ml/min; Glucose 109 mg/dl (70-99); Magnesium 1.7 mg/dl (1.6-2.3); Potassium 4.1 mmol/L (3.5-5.1); Sodium 134 mmol/L (135-145); Total Protein 6.1 g/dl (6.3-8.2); eGFR > 60.00
[2025-01-17 07:25] LABS: Depakane 70.5 ug/ml (50.0-120.0)
[2025-01-17] MEDS: DEPAKOTE (12 HR RELEASE) 500 MG PO ×2 (08:09→21:33)
[2025-01-17] MEDS: KCL 20 MEQ PO (08:09)
[2025-01-17] MEDS: IMDUR (EXTENDED RELEASE) 60 MG PO (08:09)
[2025-01-17] MEDS: FLOMAX 0.4 MG PO (08:09)
[2025-01-17] MEDS: PRADAXA 150 MG PO ×2 (08:09→20:36)
[2025-01-17] MEDS: PROTONIX 20 MG PO ×2 (08:09→20:36)
[2025-01-17] MEDS: LIORESAL 20 MG PO ×3 (08:09→21:33)
[2025-01-17] MEDS: COLACE 100 MG PO ×2 (08:10→20:36)
--- NOTE | 2025-01-17 12:53 | W.PN.HOSP.TC ---
Today's Communication/Plan
-
Discharge planning
Assessment / Plan
Assessment / Plan
Gen-alert, awake, NAD, oriented to hospital, month, date, year
HEENT-NC, AT, anicteric, clear oral mm
Neck-supple
CV-reg, no M, +S1/S2
Lungs-clear B/L
Abd-soft, NT, ND
Ext-no edema
Musculoskeletal-no cyanosis, clubbing
Skin-warm and dry
Psych-calm, cooperative
Acute toxic encephalopathy -possibly due to recent use of steroids. Mental status back to baseline. Psychiatry following.
Nursing notes he does become agitated at nighttime requiring as needed diazepam. Will discuss with psychiatry.
Low suspicion for infection despite mild leukocytosis, this could also be from steroids. Afebrile. WBC count trending down.
QTc prolongation -QTc improved. Hold further antipsychotics.
Recent COVID-19 pneumonia -resolved. Not requiring oxygen. Off COVID isolation.
CAD/CABG -stable.
History of right MCA stroke, left hemiparesis -details unclear. July 2015 MRI noted. Apparently is on Pradaxa chronically.
Chronic heart failure reduced EF -stable.
Hyperlipidemia
Essential hypertension -stable.
GERD
History of ITP
Anxiety/depression -on Prozac and Depakote at home. Depakote levels therapeutic. Unclear why he is not on Prozac in the hospital, will discuss with psychiatry.
RLS
Obesity due to excess calories
Full code
Dispo -POA asking for a new facility. Case management aware. Medically stable for discharge. Updated patient's daughter Gregoria on the phone yesterday.
Updated patient's friend Fanny at the bedside.
Anticipated Discharge: Within 24 hours
Subjective/Interval History
-
Date of Service: January 17, 2025
Patient seen and examined. No complaints.
Objective Data
-
Labs:
Laboratory Results
10/29/25
06:30
Sodium 134 L
Potassium 4.1
Chloride 101
Carbon Dioxide 33 H
BUN 16
Creatinine 0.7
Glucose 109 H
Calcium 8.6
Total Bilirubin 0.9
AST 43
ALT 20
Alkaline Phosphatase 44
Vital Signs:
Vital Signs
Temp Pulse Resp BP Pulse Ox
98.0 F 81 18 139/84 93
01/17/25 11:00 01/17/25 11:00 01/17/25 11:00 01/17/25 11:00 01/17/25 11:00
I&O
01/16/25 01/17/25 01/18/25
06:59 06:59 06:59
Intake Total 760 / 760 950 / 950
Output Total 350 / 350 575 / 575 125 / 125
Balance 410 / 410 375 / 375 -125 / -125
Review of Systems
-
History Source: Patient
All other systems: Reviewed and negative
--- NOTE | 2025-01-17 12:59 | CM ---
Addendum entered by Joyce Pereira 01/17/25 14:43:
Expanded search sent following discussion with Patient daughter in referrals on all scripts. awaiting responses.
Addendum entered by Joyce Pereira 01/17/25 13:56:
spoke with Fanny; patient caregiver and referrals sent to [facility] and [facility], also sent referrals at patient daughter request to [facility] [place], and [facility]. Awaiting responses.
Addendum entered by Joyce Pereira 01/17/25 13:42:
called again and left VM for patient daughter to review additional referral options
Original Note:
VM left for patient daughter to review additional referral options. will keep trying to reach daughter.
[2025-01-17] MEDS: LIPITOR 80 MG PO (17:13)
--- NOTE | 2025-01-17 17:57 | PTCARENOTE ---
Patient able to make his need known on this shift - polite and cooperative. Rings call villa appropriately for assistance with toileting and meals.
--- NOTE | 2025-01-17 18:54 | W.PN.UPDATE ---
Update Note
Progress Note Update
pt seen, notes reviewed. Friend Fanny in room to discuss. Has had some periods of agitation requiring valium. Will try to get agitation under control with depakote, will not reinstate prozac due to long QTc. Doug trim valium
[2025-01-17] MEDS: VALIUM INJECTION 2 MG IV (20:39)
[2025-01-17] MEDS: MELATONIN 3 MG PO (21:33)
[2025-01-18] VITALS (8 sets, daily range): BP systolic 107–136; BP diastolic 53–83; PULSE 75–80; O2SAT 94; BMI 30.2
[2025-01-18] MEDS: TYLENOL 650 MG PO ×2 (01:19→21:53)
[2025-01-18 07:16] LABS: Blood Urea Nitrogen 13 mg/dl (9-20); Calcium 8.6 mg/dl (8.4-10.2); Carbon Dioxide 31 mmol/L (22-30); Chloride 100 mmol/L (98-107); Estimated Creatinine Clearance 116 ml/min; Glucose 107 mg/dl (70-99); Potassium 4.2 mmol/L (3.5-5.1); Sodium 134 mmol/L (135-145); eGFR > 60.00
--- NOTE | 2025-01-18 07:58 | VATNOTE ---
Previous Right MAB IV site still with 3cm palpable cord. Area reddened and warm to the touch. Pt. reports area is not as sore.
[2025-01-18] MEDS: COLACE 100 MG PO ×2 (08:32→20:00)
[2025-01-18] MEDS: PROTONIX 20 MG PO ×2 (08:33→20:00)
[2025-01-18] MEDS: PRADAXA 150 MG PO ×2 (08:33→19:59)
[2025-01-18] MEDS: DEPAKOTE (12 HR RELEASE) 500 MG PO ×3 (08:33→21:53)
[2025-01-18] MEDS: LIORESAL 20 MG PO ×3 (08:33→21:53)
[2025-01-18] MEDS: KCL 20 MEQ PO (08:33)
[2025-01-18] MEDS: FLOMAX 0.4 MG PO (08:33)
[2025-01-18] MEDS: IMDUR (EXTENDED RELEASE) 60 MG PO (08:34)
--- NOTE | 2025-01-18 11:06 | W.PN.UPDATE ---
Update Note
Progress Note Update
patient seen chart reviewed. spoke with cm who is making little headway in finding him a fci. he has been refused by prior nh given inappropriate behaviors. discussed with dr handy minimizing valium with eventual dc. the patient was
cooperative when i saw him. he told me he is happy he cannot go back to [facility] from [facility] he came as he did not like it there. he did receive a valium last evening prn. (decreased yesterday to 2 mg) have changed valium to po prn bid. do
not see that he needs iv. noted dr floyd increased depakote which may help with inappropriate behaviors although level was already 73 on 500 bid and this may overshoot the dionicio. will get a level in the am and chief operator hydroformer from there. will check in w him
tomorrow.
--- NOTE | 2025-01-18 12:32 | W.PN.HOSP.TC ---
Today's Communication/Plan
-
Discharge planning
Assessment / Plan
Assessment / Plan
Gen-alert, awake, NAD, oriented to hospital, month, date, year
HEENT-NC, AT, anicteric, clear oral mm
Neck-supple
CV-reg, no M, +S1/S2
Lungs-clear B/L
Abd-soft, NT, ND
Ext-no edema
Musculoskeletal-no cyanosis, clubbing
Skin-warm and dry
Psych-calm, cooperative
Acute toxic encephalopathy -possibly due to recent use of steroids. Mental status back to baseline. Psychiatry following.
Low suspicion for infection despite mild leukocytosis, this could also be from steroids. Afebrile. WBC count trending down.
Psychiatry assisting, Depakote dose increased. Tried to reduce dose of diazepam. Recheck Depakote level in the morning.
QTc prolongation -QTc improved. Hold further antipsychotics.
Hyponatremia -134. Mild fluid restriction ordered.
Recent COVID-19 pneumonia -resolved. Not requiring oxygen. Off COVID isolation.
CAD/CABG -stable.
History of right MCA stroke, left hemiparesis -details unclear. July 2015 MRI noted. Apparently is on Pradaxa chronically.
Chronic heart failure reduced EF -stable.
Hyperlipidemia
Essential hypertension -stable.
GERD
History of ITP
Anxiety/depression -on Prozac and Depakote at home. Depakote levels therapeutic. Currently not on Prozac in the hospital due to QTc prolongation, also with hyponatremia.
RLS
Obesity due to excess calories
Full code
Dispo -POA asking for a new facility. Case management aware. Medically stable for discharge.
Anticipated Discharge: Within 24 hours
Subjective/Interval History
-
Date of Service: January 18, 2025
Patient seen and examined, no complaints.
Objective Data
-
Labs:
Laboratory Results
01/18/25
05:31
Sodium 134 L
Potassium 4.2
Chloride 100
Carbon Dioxide 31 H
BUN 13
Creatinine 0.7
Glucose 107 H
Calcium 8.6
Vital Signs:
Vital Signs
Temp Pulse Resp BP Pulse Ox
97.9 F 79 16 132/69 94
01/18/25 12:06 01/18/25 12:06 01/18/25 12:06 01/18/25 12:06 01/18/25 12:06
I&O
01/17/25 01/18/25 01/19/25
06:59 06:59 06:59
Intake Total 950 / 950 1180 / 1180
Output Total 575 / 575 1125 / 1125
Balance 375 / 375 55 / 55
Review of Systems
-
History Source: Patient
All other systems: Reviewed and negative
--- NOTE | 2025-01-18 15:06 | CM ---
Addendum entered by Joyce Pereira 01/18/25 15:22:
[facility] liaison states that brand representative will come to see patient tomorrow.
Original Note:
Called to a number of SNF options that have not responded at this time. No acceptances currently. IMELDA spoke with patient friend Fanny and referral sent to [facility] at her request. Monique working on options and will update IMELDA.
[2025-01-18] MEDS: LIPITOR 80 MG PO (17:06)
[2025-01-18] MEDS: MELATONIN 3 MG PO (21:53)
[2025-01-18] MEDS: VALIUM 2 MG PO (21:53)
[2025-01-19] VITALS (7 sets, daily range): BP systolic 107–121; BP diastolic 60–80
[2025-01-19] MEDS: TYLENOL 650 MG PO (01:57)
[2025-01-19 07:10] LABS: Depakane 88.3 ug/ml (50.0-120.0)
[2025-01-19] MEDS: PRADAXA 150 MG PO ×2 (08:19→20:22)
[2025-01-19] MEDS: DEPAKOTE (12 HR RELEASE) 500 MG PO (08:19)
[2025-01-19] MEDS: COLACE 100 MG PO ×2 (08:19→20:22)
[2025-01-19] MEDS: LIORESAL 20 MG PO ×3 (08:19→21:37)
[2025-01-19] MEDS: PROTONIX 20 MG PO ×2 (08:19→20:23)
[2025-01-19] MEDS: KCL 20 MEQ PO (08:19)
[2025-01-19] MEDS: IMDUR (EXTENDED RELEASE) 60 MG PO (08:19)
[2025-01-19] MEDS: FLOMAX 0.4 MG PO (08:19)
--- NOTE | 2025-01-19 11:25 | W.PN.HOSP.TC ---
Today's Communication/Plan
-
Discharge planning
Assessment / Plan
Assessment / Plan
Gen-alert, awake, NAD, oriented to hospital, month, date, year
HEENT-NC, AT, anicteric, clear oral mm
Neck-supple
CV-reg, no M, +S1/S2
Lungs-clear B/L
Abd-soft, NT, ND
Ext-no edema
Musculoskeletal-no cyanosis, clubbing
Skin-warm and dry
Psych-calm, cooperative
Acute toxic encephalopathy -possibly due to recent use of steroids, recent COVID infection. Mental status back to baseline. Psychiatry following.
Psychiatry assisting, Depakote dose increased. Diazepam dose reduced. Depakote level 88 this morning.
QTc prolongation -QTc improved. Hold further antipsychotics.
Hyponatremia -134. Mild fluid restriction ordered.
Recent COVID-19 pneumonia -resolved. Not requiring oxygen. Off COVID isolation.
CAD/CABG -stable.
History of right MCA stroke, left hemiparesis -details unclear. July 2015 MRI noted. Apparently is on Pradaxa chronically.
Chronic heart failure reduced EF -stable.
Hyperlipidemia
Essential hypertension -stable.
GERD
History of ITP
Anxiety/depression -on Prozac and Depakote at home. Depakote levels therapeutic. Currently not on Prozac in the hospital due to QTc prolongation, hyponatremia.
RLS
Obesity due to excess calories
Full code
Dispo -POA asking for a new facility. Case management aware. Medically stable for discharge.
Anticipated Discharge: Today
Subjective/Interval History
-
Date of Service: January 19, 2025
Patient seen and examined. No complaints.
Objective Data
-
Vital Signs:
Vital Signs
Temp Pulse Resp BP Pulse Ox
97.4 F 69 18 121/80 97
01/19/25 07:20 01/19/25 07:20 01/19/25 07:20 01/19/25 07:20 01/19/25 07:20
I&O
01/18/25 01/19/25 01/20/25
06:59 06:59 06:59
Intake Total 1180 / 1180 1000 / 1000
Output Total 1125 / 1125 1150 / 1150
Balance 55 / 55 -150 / -150
Review of Systems
-
History Source: Patient
All other systems: Reviewed and negative
--- NOTE | 2025-01-19 12:22 | W.PN.UPDATE ---
Update Note
Progress Note Update
patient seen chart reviewed. 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 he was as usual for me this am. when i have seen him he is not particularly interested in talking but he is polite
and not argumentative at all. he has made it clear he does not want to return to the same nh and they have made it clear they will not allow him to return. explained to him the change i made in depakote. his level was in the 80's. it will likely
rise higher given the recent increase to 500 tid likely before the 500 bid dose had reached steady state. changed order to 500/750 which may also help w evening irritability. not adding any other psychotropics given qtc. check depakote level
wednesday am psych will see him at least once over weekend.
--- NOTE | 2025-01-19 13:22 | CM ---
Addendum entered by Joyce Pereira 01/19/25 16:43:
CM spoke with patient daughter, Gregoria. Daughter asking to talk to Psychiatrist to consider geripsych admission. CM sent request to psych to discuss. Patient daughter to tour [facility] tomorrow and is aware of bed at [facility]. CM will continue to
follow for discharge planning needs.
Addendum entered by Joyce Pereira 01/19/25 16:08:
unable to reach patient daughter/friend they are touring facilities and await RN to visit with patient later today. [facility] is working with patient family and will reach out to CM as soon as family clarify. Monique Bernard phone number is
[phone] is working over weekend as well.
Addendum entered by Joyce Pereira 01/19/25 14:46:
VM left for patient friend Fanny and will continue to follow for responses.
Original Note:
Patient seen at bedside on [place]. Patient accepted by [facility] [phone] from [place]. Patient seen today by liaison at [facility] from [place] and they are considering accepting patient, pending . Manager Account Management Cecilia to
call family and discuss options. Patient accepted by [facility] and [facility] with [facility] considering patient.
Patient friend scheduled to see [facility] today at 3 pm and [facility] at 2. Nursing representatives to see patient here this evening and will provide MA-51 form for physician to complete if accepted. The facilities are aware of patient being
medically stable for discharge.
CM called to patient friend Fanny and was unable to leave message. CM will call to patient daughter and update. Awaiting response from family and confirmation of acceptance.
Plan; SNF vs personal care as soon as bed confirmed.
[2025-01-19] MEDS: LIPITOR 80 MG PO (16:07)
[2025-01-19] MEDS: DEPAKOTE (12 HR RELEASE) 750 MG PO (21:33)
[2025-01-19] MEDS: MELATONIN 3 MG PO (21:37)
[2025-01-20 03:46] VITALS: BP 115/72
[2025-01-20 06:00] VITALS: BMI 30.3
[2025-01-20 07:10] VITALS: BP 111/75
[2025-01-20] MEDS: PRADAXA 150 MG PO ×2 (08:41→19:53)
[2025-01-20] MEDS: PROTONIX 20 MG PO ×2 (08:41→19:53)
[2025-01-20] MEDS: FLOMAX 0.4 MG PO (08:42)
[2025-01-20] MEDS: IMDUR (EXTENDED RELEASE) 60 MG PO (08:42)
[2025-01-20] MEDS: DEPAKOTE (12 HR RELEASE) 500 MG PO (08:42)
[2025-01-20] MEDS: COLACE 100 MG PO ×2 (08:42→19:53)
[2025-01-20] MEDS: LIORESAL 20 MG PO ×3 (08:42→21:10)
[2025-01-20] MEDS: KCL 20 MEQ PO (08:42)
--- NOTE | 2025-01-20 09:48 | W.PN.HOSP.TC ---
Today's Communication/Plan
-
BMP in the morning
Assessment / Plan
Assessment / Plan
Gen-alert, awake, NAD, oriented to hospital, month, date, year
HEENT-NC, AT, anicteric, clear oral mm
Neck-supple
CV-reg, no M, +S1/S2
Lungs-clear B/L
Abd-soft, NT, ND
Ext-no edema
Musculoskeletal-no cyanosis, clubbing
Skin-warm and dry
Psych-calm, cooperative
Acute toxic encephalopathy -possibly due to recent use of steroids, recent COVID infection. Mental status back to baseline. Psychiatry following.
Psychiatry assisting, Depakote dose increased. Diazepam dose reduced. Depakote level 88 this morning.
QTc prolongation -QTc improved. Hold further antipsychotics.
Hyponatremia -134. Mild fluid restriction ordered. BMP in the morning.
Recent COVID-19 pneumonia -resolved. Not requiring oxygen. Off COVID isolation.
CAD/CABG -stable.
History of right MCA stroke, left hemiparesis -details unclear. July 2015 MRI noted. Apparently is on Pradaxa chronically.
Chronic heart failure reduced EF -stable.
Hyperlipidemia
Essential hypertension -stable.
GERD
History of ITP
Anxiety/depression -on Prozac and Depakote at home. Depakote levels therapeutic. Currently not on Prozac in the hospital due to QTc prolongation, hyponatremia.
RLS
Obesity due to excess calories
Full code
Dispo -POA asking for a new facility. Case management aware. Medically stable for discharge.
Anticipated Discharge: 24 - 48 hours
Subjective/Interval History
-
Date of Service: January 20, 2025
Patient seen and examined. No complaints.
Objective Data
-
Vital Signs:
Vital Signs
Temp Pulse Resp BP Pulse Ox
97.8 F 74 16 111/75 95
01/20/25 07:10 01/20/25 07:10 01/20/25 07:10 01/20/25 07:10 01/20/25 07:10
I&O
01/19/25 01/20/25 01/21/25
06:59 06:59 05:59
Intake Total 1000 / 1000 840 / 840
Output Total 1150 / 1150 925 / 925
Balance -150 / -150 -85 / -85
Review of Systems
-
History Source: Patient
All other systems: Reviewed and negative
[2025-01-20 11:10] VITALS: BP 107/69
--- NOTE | 2025-01-20 12:37 | W.PN.UPDATE ---
Update Note
Progress Note Update
Pt seen, resting calmly in bed, alert, answering questions, states his mood is good. No current agitation. Pt states his appetite is good, ate breakfast, denies any side effects on medications. VPA level to be drawn tomorrow am 11/2.
Imp: TME, multifactorial, with agitation, improving. Prolonged QTc
Rec: continue trial of increased Depakote, f/u VPA level tomorrow
Will follow
[2025-01-20 15:10] VITALS: BP 125/69
[2025-01-20] MEDS: VALIUM 2 MG PO ×2 (15:19→21:10)
[2025-01-20] MEDS: LIPITOR 80 MG PO (17:47)
[2025-01-20 19:23] VITALS: BP 115/75
[2025-01-20] MEDS: MILK OF MAGNESIA 30 ML PO (19:53)
[2025-01-20] MEDS: DEPAKOTE (12 HR RELEASE) 750 MG PO (21:09)
[2025-01-20] MEDS: MELATONIN 3 MG PO (21:10)
[2025-01-20 23:10] VITALS: BP 115/74
--- NOTE | 2025-01-20 23:25 | PTCARENOTE ---
Addendum entered by Garfield Rowe RN 01/21/25 01:10 EDT:
Covering provider aware, but wants to defer this decision to Attending MD while medications are being adjusted.
Original Note:
Patient requesting Trazodone 100mg for sleep. He says he has a prescription and has been taking this for a long time.
[2025-01-21] VITALS (7 sets, daily range): BP systolic 110–133; BP diastolic 57–89; PULSE 88; BMI 30.7
--- NOTE | 2025-01-21 05:35 | PTCARENOTE ---
Patient was awake and restless most of this overnight caregiver. He rang his call villa frequently and was agitated about not sleeping.
[2025-01-21] MEDS: KCL 20 MEQ PO (08:12)
[2025-01-21] MEDS: DEPAKOTE (12 HR RELEASE) 500 MG PO (08:13)
[2025-01-21] MEDS: PRADAXA 150 MG PO ×2 (08:13→20:39)
[2025-01-21 08:16] LABS: Blood Urea Nitrogen 16 mg/dl (9-20); Calcium 8.2 mg/dl (8.4-10.2); Carbon Dioxide 29 mmol/L (22-30); Chloride 101 mmol/L (98-107); Estimated Creatinine Clearance 117 ml/min; Glucose 115 mg/dl (70-99); Potassium 3.9 mmol/L (3.5-5.1); Sodium 137 mmol/L (135-145); eGFR > 60.00
[2025-01-21] MEDS: PROTONIX 20 MG PO ×2 (08:16→20:40)
[2025-01-21] MEDS: LIORESAL 20 MG PO ×3 (08:16→20:42)
[2025-01-21] MEDS: COLACE 100 MG PO (08:16)
[2025-01-21] MEDS: FLOMAX 0.4 MG PO (08:16)
[2025-01-21] MEDS: IMDUR (EXTENDED RELEASE) 60 MG PO (08:16)
[2025-01-21 08:27] LABS: Depakane 75.5 ug/ml (50.0-120.0)
--- NOTE | 2025-01-21 13:05 | W.PN.HOSP.TC ---
Today's Communication/Plan
-
Discharge planning
Assessment / Plan
Assessment / Plan
Gen-alert, awake, NAD, oriented
HEENT-NC, AT, anicteric, clear oral mm
Neck-supple
CV-reg, no M, +S1/S2
Lungs-clear B/L
Abd-soft, NT, ND
Ext-no edema
Musculoskeletal-no cyanosis, clubbing
Skin-warm and dry
Psych-calm, cooperative
Acute toxic encephalopathy -possibly due to recent use of steroids, recent COVID infection. Mental status back to baseline. Psychiatry following.
Psychiatry assisting, Depakote dose increased. Diazepam dose reduced. Depakote level 75 this morning.
QTc prolongation -QTc improved. Hold further antipsychotics.
Hyponatremia - improved to 137. Mild fluid restriction.
Recent COVID-19 pneumonia -resolved. Not requiring oxygen. Off COVID isolation.
CAD/CABG -stable.
History of right MCA stroke, left hemiparesis -details unclear. July 2015 MRI noted. Apparently is on Pradaxa chronically.
Chronic heart failure reduced EF -stable.
Hyperlipidemia
Essential hypertension -stable.
GERD
History of ITP
Anxiety/depression -on Prozac and Depakote at home. Depakote levels therapeutic. Currently not on Prozac in the hospital due to QTc prolongation, hyponatremia.
RLS
Obesity due to excess calories
Full code
Dispo -POA asking for a new facility. Case management aware. Medically stable for discharge.
Anticipated Discharge: Within 24 hours
Subjective/Interval History
-
Date of Service: January 21, 2025
Patient seen and examined. No complaints.
Objective Data
-
Labs:
Laboratory Results
01/21/25
06:31
Sodium 137
Potassium 3.9
Chloride 101
Carbon Dioxide 29
BUN 16
Creatinine 0.7
Glucose 115 H
Calcium 8.2 L
Vital Signs:
Vital Signs
Temp Pulse Resp BP Pulse Ox
97.6 F 75 18 118/69 95
01/21/25 07:10 01/21/25 07:10 01/21/25 07:10 01/21/25 07:10 01/21/25 07:10
I&O
01/20/25 01/21/25 01/22/25
06:59 05:59 06:59
Intake Total 840 / 840 1320 / 1320
Output Total 925 / 925 1250 / 1250
Balance -85 / -85 70 / 70
Review of Systems
-
History Source: Patient
All other systems: Reviewed and negative
[2025-01-21] MEDS: LIPITOR 80 MG PO (17:24)
[2025-01-21] MEDS: COLACE PO (20:35)
[2025-01-21] MEDS: DEPAKOTE (12 HR RELEASE) 750 MG PO (20:40)
[2025-01-21] MEDS: MELATONIN 3 MG PO (20:42)
[2025-01-22] VITALS (7 sets, daily range): BP systolic 98–141; BP diastolic 65–80; BMI 30.4
[2025-01-22] MEDS: FLOMAX 0.4 MG PO (08:06)
[2025-01-22] MEDS: LIORESAL 20 MG PO ×3 (08:06→21:03)
[2025-01-22] MEDS: IMDUR (EXTENDED RELEASE) 60 MG PO (08:06)
[2025-01-22] MEDS: DEPAKOTE (12 HR RELEASE) 500 MG PO (08:06)
[2025-01-22] MEDS: PRADAXA 150 MG PO ×2 (08:06→20:57)
[2025-01-22] MEDS: KCL 20 MEQ PO (08:07)
[2025-01-22] MEDS: COLACE 100 MG PO ×2 (08:07→20:57)
[2025-01-22] MEDS: PROTONIX 20 MG PO ×2 (08:07→20:58)
--- NOTE | 2025-01-22 08:55 | VATNOTE ---
Previous Right MAB IV site that is being monitored has improved. Area has no warmth today, decreased redness, and no pain.
--- NOTE | 2025-01-22 15:03 | CM ---
CM reviewed pt with Monique/Joana
Plan for [facility] to complete onsite evaluation for respite vs LTC placement
Clinicals faxed to [phone], awaiting outcome of [place] eval
Call with FRANKLYN/Fanny with update
CM reviewed PT eval and noted concern that pt is a 2 person assist
She would like to avoid SNFs if possible due to poor past experience
She is aware SNF would be needed if ALFs deny pt
Multiple accepting SNFs at this time
Discharge Disposition- SNF vs FDC placement
--- NOTE | 2025-01-22 16:11 | W.PN.HOSP.TC ---
Today's Communication/Plan
-
Placement
Assessment / Plan
Assessment / Plan
Acute toxic encephalopathy -possibly due to recent use of steroids, recent COVID infection. Mental status back to baseline. Psychiatry following.
Psychiatry assisting, Depakote dose increased. Diazepam dose reduced. Depakote level 75 this morning.
Vascular dementia likely sequela of previous frontal right MCA territory stroke.
QTc prolongation -QTc improved. Hold further antipsychotics.
Hyponatremia - improved to 137. Mild fluid restriction.
Recent COVID-19 pneumonia -resolved. Not requiring oxygen. Off COVID isolation.
CAD/CABG -stable.
History of right MCA stroke, left hemiparesis -details unclear. July 2015 MRI noted. Apparently is on Pradaxa chronically.
Chronic heart failure reduced EF -stable.
Hyperlipidemia
Essential hypertension -stable.
GERD
History of ITP
Anxiety/depression -on Prozac and Depakote at home. Depakote levels therapeutic. Currently not on Prozac in the hospital due to QTc prolongation, hyponatremia.
RLS
Obesity due to excess calories
Full code
Dispo -POA asking for a new facility. Case management aware. Medically stable for discharge.
Anticipated Discharge: 24 - 48 hours
Subjective/Interval History
-
Date of Service: January 22, 2025
Objective Data
-
Vital Signs:
Vital Signs
Temp Pulse Resp BP Pulse Ox
97.9 F 71 16 127/76 93
01/22/25 15:14 01/22/25 16:07 01/22/25 15:14 01/22/25 16:07 01/22/25 15:14
I&O
01/21/25 01/22/25 01/23/25
05:59 06:59 06:59
Intake Total 1320 / 1320 1380 / 1380
Output Total 1250 / 1250 1400 / 1400 350 / 350
Balance 70 / 70 -20 / -20 -350 / -350
Physical Exam
-
General: Well Developed, Well Nourished, No Apparent Distress and Comfortable
HEENT: Normocephalic, Atraumatic, Moist Mucous Membranes, No Ptosis, PERRLA and Nose Appears Normal
Respiratory: Clear to Auscultation and Non Labored Respirations
Cardiac: Regular Rhythm and S1/S2
Breast: Deferred by me
GI: Soft, Nontender, Nondistended and Normal Bowel Sounds
Genito-urinary: No Costovertebral Tender
Musculoskeletal: No Clubbing, No Cyanosis and Other (Left foot in boot)
Skin: Warm
Neuro: Awake, Alert, Oriented, AO x 3 and Other (left-sided hemiparesis)
Psych: Calm
[2025-01-22] MEDS: LIPITOR 80 MG PO (17:05)
--- NOTE | 2025-01-22 19:57 | W.PN.UPDATE ---
Update Note
Progress Note Update
pt seen this afternoon to assess progress. chart reviewed. pt told me he is planning to go to facility nearer [place], but nothing yet in case management notes. It appears his need for a 2 person assist is problematic. Behaviorally in control.
Depakote level ok, but may need to go back to 1500 mg per day. Affect animated, pleasant
[2025-01-22] MEDS: MELATONIN 3 MG PO (21:03)
[2025-01-22] MEDS: DEPAKOTE (12 HR RELEASE) 750 MG PO (21:03)
[2025-01-23] MEDS: DULCOLAX 10 MG RECTAL (00:16)
--- NOTE | 2025-01-23 00:22 | PTCARENOTE ---
Pt. insisting need for PRN suppository despite multiple small bowel movements.
--- NOTE | 2025-01-23 01:35 | PTCARENOTE ---
Pt. found with no IV access. Pt. unaware of what happened to IV. Pt. adamantly refusing new IV line placement. Pt stating: 'Dr is aware of not having IV access and Dr is fine with it.' Reviewed hospital policy with the patient regarding IV line
access while on telemetry.
[2025-01-23 03:20] VITALS: BP 127/73
[2025-01-23 05:01] VITALS: BMI 30.6
--- NOTE | 2025-01-23 07:54 | VATNOTE ---
Palpable cord feels smaller today. No redness, warmth or pain.
[2025-01-23] MEDS: PROTONIX 20 MG PO ×2 (08:14→20:19)
[2025-01-23] MEDS: COLACE 100 MG PO ×2 (08:15→20:19)
[2025-01-23] MEDS: LIORESAL 20 MG PO ×3 (08:15→22:28)
[2025-01-23] MEDS: DEPAKOTE (12 HR RELEASE) 500 MG PO (08:15)
[2025-01-23] MEDS: IMDUR (EXTENDED RELEASE) 60 MG PO (08:18)
[2025-01-23] MEDS: FLOMAX 0.4 MG PO (08:18)
[2025-01-23] MEDS: PRADAXA 150 MG PO ×2 (08:18→20:18)
[2025-01-23] MEDS: KCL 20 MEQ PO (08:18)
[2025-01-23 08:51] VITALS: BP 142/79
[2025-01-23 11:00] VITALS: BP 126/63
--- NOTE | 2025-01-23 15:01 | W.PN.HOSP.TC ---
Today's Communication/Plan
-
Ongoing disposition efforts with group home facility placement
Assessment / Plan
Assessment / Plan
Acute toxic encephalopathy -possibly due to recent use of steroids, recent COVID infection. Mental status back to baseline. Psychiatry following.
Psychiatry assisting, Depakote dose increased. Diazepam dose reduced. Depakote level 75 this morning.
Vascular dementia likely sequela of previous frontal right MCA territory stroke.
QTc prolongation -QTc improved. Hold further antipsychotics.
Hyponatremia - improved to 137. Mild fluid restriction.
Recent COVID-19 pneumonia -resolved. Not requiring oxygen. Off COVID isolation.
CAD/CABG -stable.
History of right MCA stroke, left hemiparesis -details unclear. July 2015 MRI noted. Apparently is on Pradaxa chronically.
Chronic heart failure reduced EF -stable.
Hyperlipidemia
Essential hypertension -stable.
GERD
History of ITP
Anxiety/depression -on Prozac and Depakote at home. Depakote levels therapeutic. Currently not on Prozac in the hospital due to QTc prolongation, hyponatremia.
RLS
Obesity due to excess calories
Full code
Dispo -POA asking for a new facility. Case management aware. Medically stable for discharge.
Anticipated Discharge: Within 24 hours
Subjective/Interval History
-
Date of Service: January 23, 2025
Objective Data
-
Vital Signs:
Vital Signs
Temp Pulse Resp BP Pulse Ox
98.1 F 70 20 126/63 92
01/23/25 11:00 01/23/25 11:00 01/23/25 11:00 01/23/25 11:00 01/23/25 11:00
I&O
01/22/25 01/23/25 01/24/25
06:59 06:59 06:59
Intake Total 1380 / 1380 360 / 360
Output Total 1400 / 1400 1225 / 1225
Balance -20 / -20 -865 / -865
Physical Exam
-
General: Well Developed, Well Nourished, No Apparent Distress and Comfortable
HEENT: Normocephalic, Atraumatic, Moist Mucous Membranes, No Ptosis, PERRLA and Nose Appears Normal
Respiratory: Clear to Auscultation and Non Labored Respirations
Cardiac: Regular Rhythm and S1/S2
Breast: Deferred by me
GI: Soft, Nontender, Nondistended and Normal Bowel Sounds
Genito-urinary: No Costovertebral Tender
Musculoskeletal: No Clubbing, No Cyanosis and Other (Left foot in boot)
Skin: Warm
Neuro: Awake, Alert, Oriented, AO x 3 and Other (left-sided hemiparesis)
Psych: Calm
[2025-01-23 15:13] VITALS: BP 124/74
[2025-01-23] MEDS: LIPITOR 80 MG PO (17:05)
--- NOTE | 2025-01-23 19:24 | PTCARENOTE ---
pt oob to the chair for three hours today. x2 assist with L leg brace and L arm brace. pt agitated that he had to sit in the chair and not able to lay in bed and pee. pt educated that basic ADLs are encouraged and he can still pee in the chair.
urinal used.
[2025-01-23] MEDS: ANESTHETIC LOZENGE 1 LOZENGE PO (21:45)
[2025-01-23] MEDS: DEPAKOTE (12 HR RELEASE) 750 MG PO (22:29)
[2025-01-23] MEDS: MELATONIN 3 MG PO (22:29)
--- NOTE | 2025-01-23 22:46 | W.PN.UPDATE ---
Update Note
Progress Note Update
pt seen for assessment this afternoon. being seen by physical therapist, checking on splint. encouraged that he may soon be heading to [place]. Mental status good, worried about difficulty sleeping. Had done ok on trazodone but QTc too high. will
consider use of gabapentin, as he is complaining of neuropathic pain. Can also consider increase in depakote
[2025-01-23 23:10] VITALS: BP 132/84
[2025-01-24 06:00] VITALS: BMI 30.8
[2025-01-24 07:10] VITALS: BP 109/69
[2025-01-24] MEDS: LIORESAL 20 MG PO ×2 (08:14→15:17)
[2025-01-24] MEDS: DEPAKOTE (12 HR RELEASE) 500 MG PO (08:14)
[2025-01-24] MEDS: PROTONIX 20 MG PO (08:14)
[2025-01-24] MEDS: KCL 20 MEQ PO (08:14)
[2025-01-24] MEDS: FLOMAX 0.4 MG PO (08:14)
[2025-01-24] MEDS: PRADAXA 150 MG PO (08:14)
[2025-01-24] MEDS: IMDUR (EXTENDED RELEASE) 60 MG PO (08:14)
[2025-01-24] MEDS: COLACE 100 MG PO (08:14)
--- NOTE | 2025-01-24 12:36 | W.DS.TRANS ---
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
-
Discharge Instructions:
Discharge Diagnosis/Procedures Acute encephalopathy
Vascular dementia with history of frontal CVA
Recent COVID-19 pneumonia
Prolonged QTc while on trazodone
CAD/CABG
Dyslipidemia
Chronic CHF reduced EF
Essential hypertension
Diet Low Cholesterol
Instructions:
Stand-Alone Forms:
Changes to Home Medications: Yes
Discharge Medications:
DC Medications w/original date entered in [employer]
atorvastatin 80 mg tablet 80 mg PO QPM High Cholesterol 09/07/15
dabigatran etexilate 150 mg capsule (Pradaxa) 150 mg PO BID Blood Clot Prevention/Tx 03/30/24
isosorbide mononitrate 60 mg tablet,extended release 24 hr 60 mg PO DAILY Heart Disease/Condition 03/30/24
baclofen 20 mg tablet 20 mg PO TID spasm 10/07/24
acetaminophen 325 mg tablet 650 mg (2 x 325 mg) PO Q4HPRN PRN Mild Pain #30 tabs 10/10/24
tamsulosin 0.4 mg capsule 0.4 mg PO DAILY #0 caps 10/10/24
bisacodyl 10 mg rectal suppository (Dulcolax (bisacodyl)) 10 mg MN DAILYPRN PRN if no bm aftr mom 01/12/25
docusate sodium 100 mg capsule 100 mg PO BID Constipation 01/12/25
magnesium hydroxide 400 mg/5 mL oral suspension (Milk of Magnesia) 30 ml PO DAILYPRN PRN if no bm by 3rd day 01/12/25
pantoprazole 20 mg tablet,delayed release (Protonix) 20 mg PO BID Gastrointestinal Issue 01/12/25
divalproex 250 mg tablet,delayed release 750 mg (3 x 250 mg) PO HS #60 tabs 01/24/25
divalproex 500 mg tablet,delayed release 500 mg PO DAILY #30 tabs 01/24/25
melatonin 3 mg tablet 3 mg PO HS #15 tabs 01/24/25
potassium chloride 20 mEq tablet,extended release(part/cryst) (Klor-Con M) 20 meq PO DAILY #30 tabs 01/24/25
Home Medication Changes
Trazodone discontinued due to prolonged QTc
Depakote increased
Pending Results: No
--- NOTE | 2025-01-24 12:40 | CM ---
CM following re: discharge planning.
Reviewed pt's chart, met with pt.
CM has been coordinating pt's discharge plan with daughter Gregoria and friend Fanyn yesterday and today. Numerous SNFs options discussed and they requested [facility]. CM spoke to [facility] SNF liaison and after she checked that pt has 30
days Medicare SNF benefits left she confirmed that pt is accepted for admission today.
Both pt's daughter and friend/caregiver Fanny are aware, expressed their great satisfaction with discharge plan outcome. Pt's daughter stated that after the completion of SNF level of care pt will be transferred to [facility] [place].
IMM reviewed, placed on chart, pt has a copy
UC to arrange ambulance BLS. PMNC completed and left with .
[facility] nursing report: [phone]
Discharge instructions fax: [phone]
D/C plan: [facility]
[2025-01-24 15:20] VITALS: BP 102/68
[2025-01-24] MEDS: LIPITOR 80 MG PO (17:08)
--- NOTE | 2025-01-24 18:43 | PTCARENOTE ---
Patient being discharged to [facility], transported [facility]. No IV or tele pack on patient, vitals taken within 4 hours per tech. Report given to Sheri at facility. Belongings gathered at bedside and placed in belonging bags.
== END 2025-01-24 19:07 | DRG 92 ==
LOC: 2 NORTH 10:01
PROVIDERS: Hospitalist; Psychiatry & Neurology Psychiatry; Student in an Organized Health Care Education/Training Program; ADMITTING PHYSICIAN Hospitalist; ATTENDING PHYSICIAN Internal Medicine; CONSULT PHYSICIAN Psychiatry & Neurology Psychiatry; EMERGENCY PHYSICIAN Emergency Medicine; FAMILY PHYSICIAN Internal Medicine
DX: G92.8 Other toxic encephalopathy (principal); E87.1 Hypo-osmolality and hyponatremia; I50.22 Chronic systolic (congestive) heart failure; F01.518 Vascular dementia, unspecified severity, with other behavioral disturbance; F01.54 Vascular dementia, unspecified severity, with anxiety; F01.53 Vascular dementia, unspecified severity, with mood disturbance; F23 Brief psychotic disorder; I69.354 Hemiplegia and hemiparesis following cerebral infarction affecting left non-dominant side; K21.9 Gastro-esophageal reflux disease without esophagitis; G92.9 Unspecified toxic encephalopathy; I11.0 Hypertensive heart disease with heart failure; F32.A Depression, unspecified; G47.9 Sleep disorder, unspecified; E66.09 Other obesity due to excess calories; Z68.30 Body mass index [BMI] 30.0-30.9, adult; G25.81 Restless legs syndrome; I25.10 Atherosclerotic heart disease of native coronary artery without angina pectoris; Z95.1 Presence of aortocoronary bypass graft; T38.0X5A Adverse effect of glucocorticoids and synthetic analogues, initial encounter; Z78.1 Physical restraint status; Z79.01 Long term (current) use of anticoagulants
CPT/HCPCS: 70450; 71045; 80048; 80053; 80164; 81003; 81015; 83690; 83735; 83880; 85025; 85027; 87045; 87046; 87070; 87324; 87427; 87449; 93005; 96374; 96375; 96376; 97162; 97166; 97530; 97535; 99291